=== PATIENT | female | born 1950 | race Caucasian/White ===

== ENCOUNTER 2023-03-29 09:24 | Inpatient (IN) | payer OTHER, SELFPAY ==
[2023-03-29] VITALS (8 sets, daily range): BP systolic 96–135; BP diastolic 42–72; PULSE 95–105; RESP 15–22; TEMP 35.9–36.4; O2SAT 93–98; BMI 21.3
--- NOTE | ~2023-03-29 | XR_ITS ---
EXAMINATION: XR CHEST 2 VIEW CLINICAL INFORMATION: Cough, shortness of breath COMPARISON: None TECHNIQUE: PA and lateral views of the chest obtained. FINDINGS: There are diffuse bilateral patchy opacities, greater in the left mid and lower lung zones and in the right mid and lower lung zone. No pleural effusions are evident. The cardiac silhouette is not enlarged. The left hilum is prominent, as is soft tissue in the aorticopulmonary window. Degenerative changes are noted in the left shoulder. XR/XR chest 2V IMPRESSION: 1. Bilateral airspace opacities, left greater than right, nonspecific. Bilateral pneumonia and asymmetric pulmonary edema are within the differential diagnosis. Follow-up chest x-ray is recommended to confirm clearing. 2. Prominent soft tissue in the aorticopulmonary window suspicious for adenopathy. Both this finding and the pulmonary parenchymal findings would be better assessed by thoracic CT (with contrast) as clinically warranted.
--- NOTE | ~2023-03-29 | CT_ITS ---
Examination: CT brain and CT cervical spine without IV contrast. Clinical indications: Fall, head strike. COMPARISON: None. TECHNIQUE: 5 mm thin axial and reformatted 2 mm thin sagittal and coronal images of brain were obtained without contrast. Subsequently axial 3 minutes thin and reformatted 2 minutes thin sagittal coronal images of cervical spine were obtained. DLP [id number]. This CT examination was performed using dose optimization technique as appropriate, variously including the following: Automated exposure control Adjustment of MA and/or KV according to patient size(this includes techniques or standardized protocols for targeted exams where dose is matched to indication/reason for exam; extremities or head. Use of iterative reconstruction techniques. FINDINGS: There is no acute intra-axial, extra-axial bleed, masses or midline shift. There is no acute infarction evolution. There is no edema. The cerrato to white matter differentiation is maintained normal. The lateral ventricles are symmetrical in size but moderately enlarged. Mild periventricular hypodensity seen in white matter of both frontal lobes. There is normal aeration of bilateral paranasal sinuses and mastoid sinuses. No scalp soft tissue abnormality seen. Cervical spine: There is mild straightening of cervical lordosis. The vertebral heights, alignment and disc heights are normal. No visible acute fracture, dislocation or subluxation seen. Mild degenerative changes C1-C2 disc level is noted. The craniovertebral junction is normal. No visible acute fracture, dislocation or subluxation seen. The prevertebral and paravertebral soft tissues are normal. CT/CT head/brain wo IV con IMPRESSION: No acute intracranial process seen. Mild straightening of cervical lordosis likely spasm. No visible acute fracture, dislocation or subluxation seen. Mild degenerative changes C1-C2 disc level.
--- NOTE | ~2023-03-29 | CT_ITS ---
Examination: CT brain and CT cervical spine without IV contrast. Clinical indications: Fall, head strike. COMPARISON: None. TECHNIQUE: 5 mm thin axial and reformatted 2 mm thin sagittal and coronal images of brain were obtained without contrast. Subsequently axial 3 minutes thin and reformatted 2 minutes thin sagittal coronal images of cervical spine were obtained. DLP [id number]. This CT examination was performed using dose optimization technique as appropriate, variously including the following: Automated exposure control Adjustment of MA and/or KV according to patient size(this includes techniques or standardized protocols for targeted exams where dose is matched to indication/reason for exam; extremities or head. Use of iterative reconstruction techniques. FINDINGS: There is no acute intra-axial, extra-axial bleed, masses or midline shift. There is no acute infarction evolution. There is no edema. The cerrato to white matter differentiation is maintained normal. The lateral ventricles are symmetrical in size but moderately enlarged. Mild periventricular hypodensity seen in white matter of both frontal lobes. There is normal aeration of bilateral paranasal sinuses and mastoid sinuses. No scalp soft tissue abnormality seen. Cervical spine: There is mild straightening of cervical lordosis. The vertebral heights, alignment and disc heights are normal. No visible acute fracture, dislocation or subluxation seen. Mild degenerative changes C1-C2 disc level is noted. The craniovertebral junction is normal. No visible acute fracture, dislocation or subluxation seen. The prevertebral and paravertebral soft tissues are normal. CT/CT cervical spine wo IV con IMPRESSION: No acute intracranial process seen. Mild straightening of cervical lordosis likely spasm. No visible acute fracture, dislocation or subluxation seen. Mild degenerative changes C1-C2 disc level.
--- NOTE | 2023-03-29 09:38 | ED_ITS ---
HPI - General Adult General Chief complaint: Dyspnea Stated complaint: SOB Time Seen by Provider: 03/29/23 09:38 Source: patient and EMS Mode of arrival: EMS Limitations: no limitations History of Present Illness HPI narrative: Patient is a 72 year old assigned female at with a history of RA presenting to the emergency department today with shortness of breath and failure to thrive after a fall. Patient states that she has felt much more short of breath lately. [facility] staff that visits the home states that the patient had a fall 2 weeks ago, and refused to go to the hospital. She states that since then, the patient's condition has been continually declining. Patient denies any dizziness, lightheadedness, abdominal pain, nausea, vomiting, fever, chills, blurry vision, double vision, loss of vision, chest pain, back pain, night sweats, pain with urination, increased urinary frequency, increased urinary urgency, blood in her urine or stool, syncope or a near syncopal episode, bowel incontinence, bladder incontinence, bowel retention, bladder retention, or any other complaints at this time. Onset (ago): day(s) Relieving factors: none Exacerbating factors: none Associated symptoms: shortness of breath Treatments prior to arrival: none Related Data Allergies Allergy/AdvReac Type Severity Reaction Status Date / Time No Known Allergies Allergy Verified 03/29/23 09:35 [No Known Allergies*] Review of Systems 2 Constitutional: Constitutional: Reports no additional constitutional complaints, Denies chills, Denies fever(s) and Denies night sweats Eyes: Eyes: Reports no additional eye complaints, Denies blurry vision, Denies change in vision, Denies diplopia, Denies eye discharge, Denies loss of vision and Denies eye pain ENT: Denies dizziness Cardiovascular: Cardiovascular: Reports no additional cardiovascular complaints, Denies chest pain, Denies lightheadedness, Denies Loss of Consciousness and Reports dyspnea Respiratory: Respiratory: Reports no additional respiratory complaints and Reports dyspnea Gastrointestinal: Gastrointestinal: Reports no additional gastrointestinal complaints, Denies abdominal pain, Denies melena, Denies hematochezia, Denies change in bowel habits and Denies change in stool character Genitourinary: Genitourinary: Denies hematuria, Denies urinary frequency, Denies dysuria, Denies urinary incontinence, Denies urinary hesitancy and Denies urinary urgency Musculoskeletal: Musculoskeletal: Reports no additional musculoskeletal complaints, Denies numbness and Denies tingling Neurologic: Denies dizziness, Denies loss of vision, Denies numbness and Denies tingling Psychiatric: Psychiatric: Reports no additional psychiatric complaints Endocrine: Endocrine: Reports no additional endocrine complaints Hematologic/Lymphatic: Hematologic/Lymphatic: Reports no additional hematologic/lymphatic complaints Allergic/Immunologic: Allergic/Immunologic: Reports no additional allergic/immunologic complaints PMFSH Past Medical History Attestation statement: The following information was validated with the patient. (all information validated with [facility] staff at bed side) Source: old records reviewed, nursing notes reviewed and other ([facility] staff provided additional information and confirmed the information provided by the patient.) Social History Social History Smoked in Last 30 Days: No Use of substances other than those prescribed or required for medical reasons: No Advance Directives: No Advance Directives Information Provided: Yes Physical Exam ED Vital Signs: Vital Signs - 24 hr 03/29/23 09:35 03/29/23 09:39 03/29/23 12:00 Temperature 96.6 F L Pulse Rate 105 H 104 H Respiratory Rate 22 H 18 Blood Pressure 131/59 L Pulse Oximetry 94 93 Oxygen Delivery Method Room Air Nasal Cannula Nasal Cannula Oxygen Flow Rate 3 4 BMI result Body Mass Index 21.3 Const General: cooperative, no acute distress, alert and awake Nutritional Appearance: well nourished Orientation/consciousness: patient oriented x3 Limitations: no limitations HENMT Head: Yes normal to inspection and Yes atraumatic Ears: hearing grossly normal bilaterally and external ears normal General nose exam: Normal external nose present, no nasal discharge noted and no epistaxis Face and sinus: Yes normal facial exam, No abrasion and No laceration Mouth: Normal oral and palatal mucosa present, no drooling and no muffled voice Eyes General: appearance normal, both eyes and all related structures Periorbital: periorbital findings normal Eyelids: Yes eyelids normal Conjunctivae: conjunctivae normal Pupils: Equal, round and reactive pupils present EOM: EOMs intact bilaterally Neck Neck: Yes normal visual inspection, Yes full ROM and Yes no lymphadenopathy Chest Chest palpation & inspection: normal inspection of the chest Resp Effort & Inspection: able to speak in complete sentences, labored and tachypneic Auscultation: crackles bilateral in the lower lung tejeda Cardio Rate: tachycardic Rhythm: regular rhythm GI Inspection: Yes normal to inspection Palpation (GI): Soft to palpation, not firm, nontender and no guarding Skin Other: Neuro General: patient oriented x3 and moves all extremities Cranial nerves: Yes Equal, round and reactive pupils present Cognition (Neuro): normal cognition Motor exam (neuro): 5/5 motor strength present throughout Sensory Exam: Normal double simultaneous stimulation for sensation Coordination: [id number] test normal Extrem General: Yes normal to inspection, Yes full ROM and Yes capillary refill normal Psych Appearance: grossly normal Mental Status: mental status grossly normal Affect: normal affect Attitude: cooperative Thought process: Normal thought process present Thought content: Normal thought content present Insight: Good insight present (Psych) Medications Administered Discontinued Medications Generic Name Dose Route Start Last Admin Trade Name Freq PRN Reason Stop Dose Admin Furosemide 40 mg 03/29/23 10:57 03/29/23 11:23 Furosemide 40 Mg/4 Ml Vial IVPUSH 03/29/23 10:58 40 mg ONCE ONE Administration Protocol Ceftriaxone Sodium 2 gm/ 50 mls @ 100 mls/hr 03/29/23 10:29 03/29/23 11:25 Sodium Chloride IV 03/29/23 10:58 Infused ONCE ONE Infusion Medical Decision Making Medical Decision Making [facility] Narrative: Patient is a 72 year old assigned female at with a history of RA presenting to the emergency department today with shortness of breath and failure to thrive. Patient's physical exam was as noted in the physical exam portion of this chart. Patient does not normally required oxygenation at home and is requiring 4lpm via nasal canula here. Patient's blood work showed an elevated BNP of 511, an elevated WBC count of 18.5, an elevated initial troponin of 365.2, and an elevated total CK of 241. Patient's urine show a possible urinary tract infection however, it is contaminated. Will await culture report. Patient's EKG was unremarkable. Patient's chest x-ray showed bilateral airspace opacities consistent with bilateral pneumonia and concern for pulmonary edema. Patient's COVID-19 test was positive. Patient's clinical presentation is most consistent with bilateral pneumonia secondary to COVID-19 infection and CHF exacerbation. Patient was given IV Ceftriaxone. Patient's clinical presentation is not consistent with sepsis (@1245). Patient was also give 40mg of IV lasix. I spoke to the hospitalist who agreed to admission. I explained my physical exam findings as well as all test results to the patient. I answered all questions asked by the patient. Patient verbalized agreement and understanding with this treatment plan and admission. Differential Diagnosis Differential Diagnoses: The differential diagnosis associated with the presentation includes CHF exacerbation Pneumonia COVID-19 Influenza Admission/Observation Consideration of admission/observation: Escalation of care including admission/observation considered Patient admitted. Consult Healthcare Provider Management of the patient was discussed with: Hospitalist (agreed to admission.) Lab Data [facility] Lab Attestation statement: I reviewed the patient's lab results. My interpretation of these results are in the MDM Rationale portion of this note. 03/29/23 10:09 03/29/23 10:46 Labs: Lab Results 03/29/23 03/29/23 03/29/23 Range/Units 10:09 10:24 10:46 WBC 18.5 H (4.8-10.8) X10*3/uL RBC 3.61 L (4.20-5.50) X10*6/uL Hgb 10.4 L (12.0-16.0) g/dl Hct 33.7 L (37.0-47.0) % MCV 93.4 (80.0-98.0) fL MCH 28.8 (27.0-33.0) pg MCHC 30.9 L (31.0-35.0) g/dl RDW 17.5 H (11.0-16.0) % Plt Count 421 H (160-400) X10*3/uL MPV 10.4 (9.4-12.3) fL Immature Gran % (Auto) 2.7 H (0.0-0.4) % Neut % (Auto) 86.1 H (45-73) % Lymph % (Auto) 6.1 L (20-40) % [place] % (Auto) 4.7 (2-11) % Eos % (Auto) 0.1 (0-4) % Baso % (Auto) 0.3 (0-2) % Lymph # (Auto) 1.1 L (1.2-4.9) X10*3/uL [place] # (Auto) 0.9 (0.1-1.2) X10*3/uL Eos # (Auto) 0.0 (0.0-0.4) X10*3/uL Baso # (Auto) 0.1 (0.0-0.2) X10*3/uL Abs Immat Gran (auto) 0.49 H (0.00-0.03) X10*3/uL Absolute Neuts (auto) 15.9 H (2.0-8.3) x10*3/uL Absolute Nucleated RBC 0.000 (0.0-0.012) X10*3/uL Nucleated RBC % (auto) 0.0 (0.0-0.2) /100WBC PT 15.4 H (11.1-13.3) SEC INR 1.3 H (0.9-1.1) APTT 25.5 L (26.0-36.4) SEC VBG pH 7.38 (7.32-7.43) VBG pCO2 33 mmHg VBG pO2 47 mmHg VBG HCO3 20 L (22-26) mmol/L VBG O2 Saturation TNP VBG Base Excess -3.6 mmol/L Sodium 139 (135-145) mmol/L Potassium 3.6 (3.3-5.1) mmol/L Chloride 105 (96-108) mmol/L Carbon Dioxide 16 L (22-29) mmol/L Anion Gap 22 H (12-20) BUN 25 H (9-16) mg/dL Creatinine 0.48 L (0.5-1.4) mg/dL Estim Creat Clear Calc 82.5 Estimated GFR > 60 Random Glucose 95 (60-115) mg/dL Lactic Acid 1.5 (0.5-2.0) mmol/L Calcium 8.9 (8.4-10.2) mg/dL Magnesium 2.4 (1.6-2.6) mg/dL Total Bilirubin 0.4 (0.0-1.0) mg/dL AST 40 H (5-31) U/L ALT 18 (0-31) U/L Alkaline Phosphatase 126 H (39-117) U/L Total Creatine Kinase 241 H (26-140) U/L Troponin I High Sens 365.2 H* (<3.5-17.0) ng/L B-Natriuretic Peptide 511 H (<100) pg/mL Total Protein 6.1 L (6.5-8.0) g/dL Albumin 3.0 L (3.5-5.0) g/dL Urine Color Urine Appearance Urine pH (5.0-9.0) Ur Specific [place] (1.005-1.025) Urine Protein (Neg-Trace) mg/dL Urine Glucose (UA) (Negative) mg/dL Urine Ketones (Negative) mg/dL Urine Blood (Negative) Urine Nitrite (Negative) Ur Leukocyte Esterase (Negative) Urine RBC (0-2) /HPF Urine WBC (0-5) /HPF Ur Squamous Epith Cells (0-2) /HPF Urine Bacteria (None Seen) Hyaline Casts (0-2) /LPF Influenza Type A (PCR) NEGATIVE (Negative) Influenza Type B (PCR) NEGATIVE (Negative) RSV RNA Qual (PCR) NEGATIVE (Negative) SARS-CoV-2 RNA (RT-PCR) POSITIVE A (Negative) 03/29/23 Range/Units 12:31 WBC (4.8-10.8) X10*3/uL RBC (4.20-5.50) X10*6/uL Hgb (12.0-16.0) g/dl Hct (37.0-47.0) % MCV (80.0-98.0) fL MCH (27.0-33.0) pg MCHC (31.0-35.0) g/dl RDW (11.0-16.0) % Plt Count (160-400) X10*3/uL MPV (9.4-12.3) fL Immature Gran % (Auto) (0.0-0.4) % Neut % (Auto) (45-73) % Lymph % (Auto) (20-40) % [place] % (Auto) (2-11) % Eos % (Auto) (0-4) % Baso % (Auto) (0-2) % Lymph # (Auto) (1.2-4.9) X10*3/uL [place] # (Auto) (0.1-1.2) X10*3/uL Eos # (Auto) (0.0-0.4) X10*3/uL Baso # (Auto) (0.0-0.2) X10*3/uL Abs Immat Gran (auto) (0.00-0.03) X10*3/uL Absolute Neuts (auto) (2.0-8.3) x10*3/uL Absolute Nucleated RBC (0.0-0.012) X10*3/uL Nucleated RBC % (auto) (0.0-0.2) /100WBC PT (11.1-13.3) SEC INR (0.9-1.1) APTT (26.0-36.4) SEC VBG pH (7.32-7.43) VBG pCO2 mmHg VBG pO2 mmHg VBG HCO3 (22-26) mmol/L VBG O2 Saturation VBG Base Excess mmol/L Sodium (135-145) mmol/L Potassium (3.3-5.1) mmol/L Chloride (96-108) mmol/L Carbon Dioxide (22-29) mmol/L Anion Gap (12-20) BUN (9-16) mg/dL Creatinine (0.5-1.4) mg/dL Estim Creat Clear Calc Estimated GFR Random Glucose (60-115) mg/dL Lactic Acid (0.5-2.0) mmol/L Calcium (8.4-10.2) mg/dL Magnesium (1.6-2.6) mg/dL Total Bilirubin (0.0-1.0) mg/dL AST (5-31) U/L ALT (0-31) U/L Alkaline Phosphatase (39-117) U/L Total Creatine Kinase (26-140) U/L Troponin I High Sens 383.2 H* (<3.5-17.0) ng/L B-Natriuretic Peptide (<100) pg/mL Total Protein (6.5-8.0) g/dL Albumin (3.5-5.0) g/dL Urine Color Yellow Urine Appearance Turbid Urine pH 6.0 (5.0-9.0) Ur Specific [place] 1.010 (1.005-1.025) Urine Protein Negative (Neg-Trace) mg/dL Urine Glucose (UA) Negative (Negative) mg/dL Urine Ketones 15 (Negative) mg/dL Urine Blood Negative (Negative) Urine Nitrite Positive H (Negative) Ur Leukocyte Esterase Large (3+) H (Negative) Urine RBC 0-2 (0-2) /HPF Urine WBC 11-20 H (0-5) /HPF Ur Squamous Epith Cells 6-10 (0-2) /HPF Urine Bacteria 4+ (None Seen) Hyaline Casts 0-2 (0-2) /LPF Influenza Type A (PCR) (Negative) Influenza Type B (PCR) (Negative) RSV RNA Qual (PCR) (Negative) SARS-CoV-2 RNA (RT-PCR) (Negative) Independent Interpretation I performed an independent interpretation of an: EKG, Plain X-Ray and CT Scan Interpretation: My interpretation is in agreement with the radiologist's impression of these imaging studies. - EXAMINATION: XR CHEST 2 VIEW CLINICAL INFORMATION: Cough, shortness of breath COMPARISON: None TECHNIQUE: PA and lateral views of the chest obtained. FINDINGS: There are diffuse bilateral patchy opacities, greater in the left mid and lower lung zones and in the right mid and lower lung zone. No pleural effusions are evident. The cardiac silhouette is not enlarged. The left hilum is prominent, as is soft tissue in the aorticopulmonary window. Degenerative changes are noted in the left shoulder. XR/XR chest 2V IMPRESSION: 1. Bilateral airspace opacities, left greater than right, nonspecific. Bilateral pneumonia and asymmetric pulmonary edema are within the differential diagnosis. Follow-up chest x-ray is recommended to confirm clearing. 2. Prominent soft tissue in the aorticopulmonary window suspicious for adenopathy. Both this finding and the pulmonary parenchymal findings would be better assessed by thoracic CT (with contrast) as clinically warranted. Dictated By: Alfred Mcmillan MD Signed By: Electronically signed by Alfred Mcmillan MD 03/29/23 1126 - Examination: CT brain and CT cervical spine without IV contrast. Clinical indications: Fall, head strike. COMPARISON: None. TECHNIQUE: 5 mm thin axial and reformatted 2 mm thin sagittal and coronal images of brain were obtained without contrast. Subsequently axial 3 minutes thin and reformatted 2 minutes thin sagittal coronal images of cervical spine were obtained. DLP [id number]. This CT examination was performed using dose optimization technique as appropriate, variously including the following: Automated exposure control Adjustment of MA and/or KV according to patient size(this includes techniques or standardized protocols for targeted exams where dose is matched to indication/reason for exam; extremities or head. Use of iterative reconstruction techniques. FINDINGS: There is no acute intra-axial, extra-axial bleed, masses or midline shift. There is no acute infarction evolution. There is no edema. The cerrato to white matter differentiation is maintained normal. The lateral ventricles are symmetrical in size but moderately enlarged. Mild periventricular hypodensity seen in white matter of both frontal lobes. There is normal aeration of bilateral paranasal sinuses and mastoid sinuses. No scalp soft tissue abnormality seen. Cervical spine: There is mild straightening of cervical lordosis. The vertebral heights, alignment and disc heights are normal. No visible acute fracture, dislocation or subluxation seen. Mild degenerative changes C1-C2 disc level is noted. The craniovertebral junction is normal. No visible acute fracture, dislocation or subluxation seen. The prevertebral and paravertebral soft tissues are normal. CT/CT cervical spine wo IV con IMPRESSION: No acute intracranial process seen. Mild straightening of cervical lordosis likely spasm. No visible acute fracture, dislocation or subluxation seen. Mild degenerative changes C1-C2 disc level. Dictated By: Jayy Smith MD Signed By: Electronically signed by Jayy Smith MD 03/29/23 4168 - Vent. Rate: 103 BPM Atrial Rate: 103 BPM P-R Int: 138 ms QRS Dur: 084 ms QT Int: 360 ms P-R-T Axes: 065 083 025 degrees QTc Int: 471 ms Sinus tachycardia Otherwise normal ECG No previous ECGs available DD/ [id number] Radiology Impression Discussion of test interpretation with radiology: I have reviewed the radiologist's reading. Independent Historian Clinical information obtained from an independent historian. History obtained from or confirmed by: EMS (EMS provided additional history and confirmed the history provided by the patient.) and Other ([facility] staff provided additional history and confirmed the history provided by the patient.) Critical Care Time Critical Care Time Critical Care Time: Yes Total Critical Care Time: 55 Attestation: I spent 55 minutes of Critical Care Time with this patient. This does not include time spent on separately reported billable procedures. Discharge Plan Discharge Clinical Impression: Congestive heart failure, Pneumonia, COVID-19 Patient Disposition: Admitted As Inpatient
--- NOTE | 2023-03-29 09:41 | ECG_ITS ---
Test Reason : SOB Blood Pressure : / mmHG Vent. Rate : 103 BPM Atrial Rate : 103 BPM P-R Int : 138 ms QRS Dur : 084 ms QT Int : 360 ms P-R-T Axes : 065 083 025 degrees QTc Int : 471 ms Sinus tachycardia Nonspecific T wave abnormality Inferior leads Abnormal ECG No previous ECGs available Referred By: Kaylyn Rider Electronically Signed By:ALLI BOATENG MD
--- NOTE | 2023-03-29 10:00 | PC.NURSE ---
a&ox4, O2 87% on RA - NC applied. tachycardic on film waxer, O2 93% on 3L via NC - otherwise vss. pt comes in today d/t SOB/FTT after fall 2 weeks ago. per ems, pcp/nurse was w/ pt when ems arrived. states that she had fall 2 weeks ago at home- +headstrike, -LOC, -thinners. pt has difficulty speaking in full/complete sentences w/o feel short of breath. pt c/o 10/10 sternal chest pain only on deep inspiration. respirations labored at this time. crackles noted upon auscultation bilaterally. pt denies any other sx at this time. 20gIV placed in the right AC w/o difficulty - labs drawn and sent to lab. EKG performed. pt changed to hospital attire/cleaned/positioned to comfort. purewick applied. call bray placed within reach.
[2023-03-29 10:22] LABS: MANUAL DIFF FLAG NO
[2023-03-29 10:27] LABS: Basophils Absolute Auto 0.1 X10*3/uL (0.0-0.2); Basophils Percent Auto 0.3 % (0-2); Eosinophils Percent Auto 0.1 % (0-4); Hematocrit 33.7 % (37.0-47.0); Hemoglobin 10.4 g/dl (12.0-16.0); Imm Gran Abs Auto 0.49 X10*3/uL (0.00-0.03); Imm Gran Pct Auto 2.7 % (0.0-0.4); Lymphocytes Absolute Auto 1.1 X10*3/uL (1.2-4.9); Lymphocytes Percent Auto 6.1 % (20-40); Mean Corpuscular HGB Conc 30.9 g/dl (31.0-35.0); Mean Corpuscular Hemoglobin 28.8 pg (27.0-33.0); Mean Corpuscular Volume 93.4 fL (80.0-98.0); Mean Platelet Volume 10.4 fL (9.4-12.3); Monocytes Absolute Auto 0.9 X10*3/uL (0.1-1.2); Monocytes Percent Auto 4.7 % (2-11); Neutrophils Absolute Auto 15.9 x10*3/uL (2.0-8.3); Neutrophils Percent Auto 86.1 % (45-73); Platelet Count 421 X10*3/uL (160-400); Red Blood Count 3.61 X10*6/uL (4.20-5.50); Red Cell Distribution Width 17.5 % (11.0-16.0); White Blood Count 18.5 X10*3/uL (4.8-10.8)
[2023-03-29 10:29] LABS: Venous Blood Gas Refer to POC result
[2023-03-29 10:29] LABS: VBG Base Excess -3.6 mmol/L; VBG HCO3 20 mmol/L (22-26); VBG pCO2 33 mmHg; VBG pH 7.38 (7.32-7.43); VBG pO2 47 mmHg
--- NOTE | 2023-03-29 10:31 | PC.NURSE ---
pt currently being taken to xray.
[2023-03-29 10:36] LABS: INTERNATIONAL NORM RATIO 1.3 (0.9-1.1); Lactic Acid 1.5 mmol/L (0.5-2.0); Prothrombin Time 15.4 SEC (11.1-13.3)
[2023-03-29 10:39] LABS: Partial Thromboplastin Time 25.5 SEC (26.0-36.4)
[2023-03-29 10:48] LABS: B Type Natriuretic Peptide 511 pg/mL (<100)
[2023-03-29] MEDS: cefTRIAXone sodium 2 GM in 0.9 % Sodium Chloride 50 ML IV (10:48)
--- NOTE | 2023-03-29 10:49 | PC.NURSE ---
medication administered per provider order. tech redrawing labs at this time. [facility] worker bedside requesting to speak with provider.
[2023-03-29 10:57] LABS: Troponin-I High Sensitivity 365.2 ng/L (<3.5-17.0)
[2023-03-29 11:10] LABS: Influenza A PCR NEGATIVE (Negative); Influenza B PCR NEGATIVE (Negative); Resp Syncy Virus RNA Qual PCR NEGATIVE (Negative); SARS COV2 PCR INHOUSE POSITIVE (Negative)
[2023-03-29] MEDS: Furosemide 40 MG/4 ML VIAL IVPUSH (11:23)
--- NOTE | 2023-03-29 11:25 | PC.NURSE ---
pt medicated per provider order. pt currently being taken to CT.
[2023-03-29 11:26] LABS: Alanine Aminotransferase 18 U/L (0-31); Alkaline Phosphatase 126 U/L (39-117); Anion Gap 22 (12-20); Aspartate Amino Transferase 40 U/L (5-31); Bilirubin Total 0.4 mg/dL (0.0-1.0); Blood Urea Nitrogen 25 mg/dL (9-16); Calcium 8.9 mg/dL (8.4-10.2); Carbon Dioxide 16 mmol/L (22-29); Chloride 105 mmol/L (96-108); Creatinine Clr Calc Pharmacy 82.5; Estimated Glomerular Filt Rate > 60; Glucose Random 95 mg/dL (60-115); Magnesium 2.4 mg/dL (1.6-2.6); Potassium 3.6 mmol/L (3.3-5.1); Sodium 139 mmol/L (135-145); Total Protein 6.1 g/dL (6.5-8.0)
--- NOTE | 2023-03-29 11:26 | PC.NURSE ---
Brigida [phone] ([facility] worker)
--- NOTE | 2023-03-29 11:56 | PC.NURSE ---
pt returned from CT. pt spoke w/ provider - pt aware of plan of care at this time. call bray placed within reach.
--- NOTE | 2023-03-29 12:35 | PC.NURSE ---
urine obtained/repeat troponin drawn and and sent to lab. pt remains tachycardic on the monitor technician. O2 remains stable at this time as pt is on 4L via NC. no SOB/WOB noted at this time. pt verbalizes that pain discomfort that only occurred during inspiration has now subsided at this time. pt states that she is feeling much better since coming to ED. contact precautions in place d/t positive covid swab. respirations even and unlabored at this time. call bray placed within reach.
[2023-03-29 12:37] LABS: Appearance Urine Turbid; Color Urine Yellow; Glucose Urine UA Negative (Negative); Leukocyte Esterase Urine Large (3+) (Negative); Nitrite Urine Positive (Negative); UMIC TRIGGER UACC YES; Urine Blood Negative (Negative); Urine Ketones 15 mg/dL (Negative); Urine Protein Negative (Neg-Trace)
[2023-03-29 12:48] LABS: Bacteria Urine 4+ (None Seen); Hyaline Casts Urine 0-2 /LPF (0-2); RBC Urine 0-2 /HPF (0-2); UACC Culture Trigger YES
[2023-03-29 12:58] LABS: Troponin-I High Sensitivity 383.2 ng/L (<3.5-17.0)
--- NOTE | 2023-03-29 13:53 | PHA.MEDREC ---
Pharmacy Consult ? Medication Reconciliation Pharmacy has completed the medication reconciliation.Used list from claim history
--- NOTE | 2023-03-29 14:47 | PM.IMHP ---
History of Present Illness Date of Service: 03/29/23 Attending physician on admission: Monie Bello Chief Complaint: SOB Pt is a 72-year-old female with a PMH significant for rheumatoid arthritis?who presents to the ED from home for evaluation of increasing SOB and dyspnea for the past 1-2 weeks. Patient notes that she had a mechanical fall at home 2 weeks ago, falling on her left arm and leg. Currently patient states she has no pain in her arm or leg. Denies lightheadedness, dizziness. No LOC or head strike. Pt has home [facility] visits and staff note that patient refused to go to the hospital for evaluation after her fall, and that patient's condition has continually declined since her fall. Patient herself complains of shortness of breath that began 1-2 weeks ago, shortly after her fall. Reports shortness of breath increased acutely yesterday and again this morning, which prompted her visit to the emergency department. Denies cough. Has noticed since yesterday that she has had increased lower leg edema, especially in her feet. Also reports polyuria for the past week, but denies dysuria. No chest pain/pressure, palpitations. No fever, chills, nausea, vomiting. No diarrhea, belly pain. Patient states she lives with her son and is nonambulatory, mostly confined to her wheelchair. In the ED patient temperature of 96.6 degrees, tachycardic up to 105, tachypneic up to 22, with initial soft BP of 131/59, satting at 94% O2 on 3 L NC. Labs were significant for leukocytosis of 18.5, H&H 10.4/33.7, BUN 25, creatinine 0.48, AST 40, alk-phos 126, CPK 241, initial troponin 365.2 with repeat 383.2, BNP 511. CXR showed bilateral airspace opacities with left greater than right, nonspecific, suggestive of bilateral pneumonia or asymmetric pulmonary edema. CT?of head negative for acute intracranial process. CT of cervical spine with no visible acute fracture, dislocation, or subluxation but with mild degenerative changes at the C1-C2 disc level. EKG demonstrated sinus tachycardia of 103 with nonspecific T-wave abnormality in inferior leads, and no evidence of ST elevations or depressions. Pt was treated with ceftriaxone and furosemide. Pt will be admitted to the hospital for treatment of acute hypoxic respiratory failure in the setting of COVID infection and new onset CHF. Review of Systems Review of Systems: SOB, dyspnea Lower leg edema Polyuria Denies chest pain/pressure, palpitations Denies fever, chills, nausea, vomiting No diarrhea, abdominal pain Denies headache, lightheadedness, dizziness PMFSH Social History Smoked in Last 30 Days: No Use of substances other than those prescribed or required for medical reasons: No Advance Directives: No Advance Directives Information Provided: Yes Meds Allergies Allergy/AdvReac Type Severity Reaction Status Date / Time No Known Allergies Allergy Verified 03/29/23 09:35 [No Known Allergies*] Home Medications Medication Instructions Recorded Confirmed Last Taken Type buspirone 15 mg tablet 15 mg PO BID 03/29/23 03/29/23 Unknown History calcium carbonate 600 mg calcium 600 mg PO DAILY 03/29/23 03/29/23 Unknown History (1,500 mg) tablet folic acid 1 mg tablet 1 mg PO DAILY 03/29/23 03/29/23 Unknown History hydroxychloroquine 200 mg tablet 200 mg PO DAILY 03/29/23 03/29/23 Unknown History leflunomide 20 mg tablet 20 mg PO DAILY 03/29/23 03/29/23 Unknown History loratadine 10 mg tablet 10 mg PO DAILY 03/29/23 03/29/23 Unknown History methotrexate sodium 25 mg/mL 20 mg subcut WE 03/29/23 03/29/23 Unknown History injection solution omeprazole 20 mg capsule,delayed 20 mg PO DAILY 03/29/23 03/29/23 Unknown History release tramadol 50 mg tablet 100 mg PO BID PRN pain 03/29/23 03/29/23 Unknown History Physical Exam Vital Signs and Narrative: Vital Signs: Last Vital Signs Temp 97.5 F 03/29/23 14:29 Pulse 95 03/29/23 14:29 Resp 16 03/29/23 14:29 BP 125/61 03/29/23 14:29 Pulse Ox 98 03/29/23 14:29 O2 Del Method Nasal Cannula 03/29/23 14:29 O2 Flow Rate 4 03/29/23 14:29 BMI result Body Mass Index 21.3 Constitutional: Alert, cachectic, frail looking, in no acute distress. Mental Status: Oriented to person, place and time. Eyes: Pupils are equal, round, and reactive to light. Ear, Nose, and Throat: Oropharynx clear, mucous membranes moist. Ears and nose without deformities. Trachea midline. Respiratory: Lower right lobe crackles. Cardiovascular: S1, S2 regular. No murmurs, rubs, or gallops. Gastrointestinal: Abdomen soft, non-tender, non-distended. Normal bowel sounds. Neurologic: Cranial nerves II-XII are grossly intact bilaterally. No focal neurological deficits. Moves all extremities spontaneously. Skin: Multiple stage II decubitus ulcers as pictured below. Musculoskeletal: No cyanosis or clubbing. Extremities: 1+ bilateral lower leg edema. Upper extremities with ulnar deviation metacarpophalangeal joints bilaterally. Psychiatric: Normal mood and affect. Results Labs 03/29/23 10:09 03/29/23 10:46 Labs: Laboratory Results - last 24 hr 03/29/23 03/29/23 03/29/23 10:09 10:24 10:46 MCV 93.4 MCH 28.8 MCHC 30.9 L RDW 17.5 H Plt Count 421 H MPV 10.4 Immature Gran % (Auto) 2.7 H Neut % (Auto) 86.1 H Lymph % (Auto) 6.1 L [place] % (Auto) 4.7 Eos % (Auto) 0.1 Baso % (Auto) 0.3 Lymph # (Auto) 1.1 L [place] # (Auto) 0.9 Eos # (Auto) 0.0 Baso # (Auto) 0.1 Abs Immat Gran (auto) 0.49 H Absolute Neuts (auto) 15.9 H Absolute Nucleated RBC 0.000 Nucleated RBC % (auto) 0.0 PT 15.4 H INR 1.3 H APTT 25.5 L VBG pH 7.38 VBG pCO2 33 VBG pO2 47 VBG HCO3 20 L VBG O2 Saturation TNP VBG Base Excess -3.6 Anion Gap 22 H Estim Creat Clear Calc 82.5 Estimated GFR > 60 Random Glucose 95 Lactic Acid 1.5 Calcium 8.9 Magnesium 2.4 Total Bilirubin 0.4 AST 40 H ALT 18 Alkaline Phosphatase 126 H Total Creatine Kinase 241 H B-Natriuretic Peptide 511 H Total Protein 6.1 L Albumin 3.0 L Urine Color Urine Appearance Urine pH Ur Specific [place] Urine Protein Urine Glucose (UA) Urine Ketones Urine Blood Urine Nitrite Ur Leukocyte Esterase Urine RBC Urine WBC Ur Squamous Epith Cells Urine Bacteria Hyaline Casts Influenza Type A (PCR) NEGATIVE Influenza Type B (PCR) NEGATIVE RSV RNA Qual (PCR) NEGATIVE SARS-CoV-2 RNA (RT-PCR) POSITIVE A 03/29/23 12:31 MCV MCH MCHC RDW Plt Count MPV Immature Gran % (Auto) Neut % (Auto) Lymph % (Auto) [place] % (Auto) Eos % (Auto) Baso % (Auto) Lymph # (Auto) [place] # (Auto) Eos # (Auto) Baso # (Auto) Abs Immat Gran (auto) Absolute Neuts (auto) Absolute Nucleated RBC Nucleated RBC % (auto) PT INR APTT VBG pH VBG pCO2 VBG pO2 VBG HCO3 VBG O2 Saturation VBG Base Excess Anion Gap Estim Creat Clear Calc Estimated GFR Random Glucose Lactic Acid Calcium Magnesium Total Bilirubin AST ALT Alkaline Phosphatase Total Creatine Kinase B-Natriuretic Peptide Total Protein Albumin Urine Color Yellow Urine Appearance Turbid Urine pH 6.0 Ur Specific [place] 1.010 Urine Protein Negative Urine Glucose (UA) Negative Urine Ketones 15 Urine Blood Negative Urine Nitrite Positive H Ur Leukocyte Esterase Large (3+) H Urine RBC 0-2 Urine WBC 11-20 H Ur Squamous Epith Cells 6-10 Urine Bacteria 4+ Hyaline Casts 0-2 Influenza Type A (PCR) Influenza Type B (PCR) RSV RNA Qual (PCR) SARS-CoV-2 RNA (RT-PCR) Imaging Radiologist's Impressions: Impressions Chest X-Ray 03/29/23 10:37 IMPRESSION: 1. Bilateral airspace opacities, left greater than right, nonspecific. Bilateral pneumonia and asymmetric pulmonary edema are within the differential diagnosis. Follow-up chest x-ray is recommended to confirm clearing. 2. Prominent soft tissue in the aorticopulmonary window suspicious for adenopathy. Both this finding and the pulmonary parenchymal findings would be better assessed by thoracic CT (with contrast) as clinically warranted. Cervical Spine CT 03/29/23 11:56 IMPRESSION: No acute intracranial process seen. Mild straightening of cervical lordosis likely spasm. No visible acute fracture, dislocation or subluxation seen. Mild degenerative changes C1-C2 disc level. Head CT 03/29/23 11:56 IMPRESSION: No acute intracranial process seen. Mild straightening of cervical lordosis likely spasm. No visible acute fracture, dislocation or subluxation seen. Mild degenerative changes C1-C2 disc level. Assessment and Plan (1) COVID-19: Status: Acute (2) New onset of congestive heart failure: Status: Acute (3) UTI (urinary tract infection): Status: Acute Plan Pt is a 72-year-old female with a PMH significant for rheumatoid arthritis?who presents to the ED from home for evaluation of increasing SOB and dyspnea for the past 1-2 weeks, worse last night and this morning. Pt will be admitted to the hospital for treatment of acute hypoxic respiratory failure in the setting of COVID infection and new onset CHF. Acute hypoxic respiratory failure in the setting COVID infection Pt sesatting as low as 87% on RA, not on home O2 Dexamethasone 6 mg, remdesivir not indicated since symptom onset up to 2 weeks ago DuoNebs, albuterol inhaler p.r.n. Titrate supplemental O2 >92, wean as tolerated Monitor respiratory status New onset CHF Likely secondary to COVID infection Patient with increased SOB, CXR with evidence of pulmonary edema, elevated BNP, bilateral lower leg pitting edema Furosemide 20 mg IV b.i.d. Follow mag rain, I/O Echocardiogram Cardiology consult Monitor on telemetry UTI UA positive for UTI, patient with polyuria Patient meets sepsis criteria: UTI, WBC, tachycardia, tachypnea; lactic acid WNL at 1.5 Patient not given IVF in ED d/t CHF, started on broad-spectrum antibiotics in the ED Ceftriaxone, started on 03/29/2023 Elevated troponins Initial troponins 365.2 with repeat with no delta change at 383.2 Patient asymptomatic: Denies chest pain/pressure, palpitations, EKG without acute ischemia Likely type 2 in the setting of demand ischemia Monitor on telemetry Stage II decubitus ulcers Patient positioning q.2h Wound care nurse consult Rheumatoid arthritis Continue hydroxychloroquine, leflunomide GERD Continue omeprazole Full Code Attending:?Dr. Bello DVT Prophylaxis: Lovenox Pt will require a hospitalization of at least two nights for treatment of?acute hypoxic respiratory failure in the setting of COVID infection and new onset CHF. Time Spent With Patient Time: Total time managing care of this patient today ____ minutes. Quality Stroke Does the patient have a stroke diagnosis?: No VTE Prior VTE?: No VTE Risk Level:: Medical - moderate - high VTE Device Contraindication: Treatment Not Indicated VTE Drug Contraindication: N/A - Med Ordered
[2023-03-29] MEDS: dexAMETHasone sod phosphate 4 MG/ML VIAL 6 MG IVPUSH (16:10)
[2023-03-29] MEDS: 0.9 % Sodium Chloride Flush 3 ML SYRINGE IVFLUSH ×2 (16:10→20:08)
[2023-03-29] MEDS: Enoxaparin Sodium 40 MG/0.4 ML SYRINGE SUBCUT (16:10)
--- NOTE | 2023-03-29 16:13 | PC.NURSE ---
medication administered per provider order. pt resting in no apparent distress at this time. sinus tachy on shelter monitor. resting at 93% on 4L via NC. no SOB/WOB noted at this time. crackles still noted throughout lower lungs bilaterally. pt c/o no pain at this time. call bray placed within reach.
--- NOTE | 2023-03-29 17:13 | PC.NURSE ---
report given to admitting RN - transport notified.
[2023-03-29] MEDS: Albuterol/Iprat 2.5/0.5MG 3 ML AMPUL.NEB INHALE (19:47)
[2023-03-29] MEDS: busPIRone HCl 5 MG TABLET 15 MG PO (20:07)
[2023-03-30] VITALS (10 sets, daily range): BP systolic 98–153; BP diastolic 48–72; PULSE 72–118; RESP 16–20; TEMP 36.3–37; O2SAT 89–98; BMI 21.3
[2023-03-30] MEDS: Omeprazole 20 MG CAPSULE.DR PO (05:17)
--- NOTE | 2023-03-30 07:00 | CA_ITS ---
Transthoracic Echocardiogram Patient (Last, First, Middle): Anita Phelps M Gender: Female Date of : 1950 Age: 72 Procedure Date: 03/30/2023 Procedure Type: Transthoracic [place] [facility] [place]: 157.48 cm Weight: 52.62 kg BSA: 1.52 m2 Heart Rate: bpm BP: 98 / 48 mmHg Final Inspector Movement Assembly: Referring MD: Carla AUSTIN Symptoms: New onset CHF Study Quality: Fair ECG Rhythm: Sinus Conclusions: - The left ventricular systolic function is normal. The calculated ejection fraction is 64% by biplane method. - Possible basal inferior/inferolateral hypokinesis. - No obvious valvular pathology seen on this study. Findings Left Ventricle Normal left ventricular cavity size. There is normal left ventricular wall thickness. The left ventricular systolic function is normal. The calculated ejection fraction is 64% by biplane method. Evidence suggests grade I (mild) diastolic dysfunction. Possible basal inferior/inferolateral hypokinesis. Right Ventricle Mildly increased right ventricular cavity size. There is mildly decreased right ventricular systolic function. Atria Both atria are normal in size. Aortic Valve There is a normal trileaflet aortic valve. There is no aortic valve stenosis. There is no aortic valve regurgitation. Mitral Valve The mitral valve appears normal. There is no mitral valve regurgitation. There is no mitral valve stenosis. Pulmonic Valve The pulmonic valve is likely normal. Tricuspid Valve Normal tricuspid valve structure. There is mild tricuspid valve regurgitation. There is no evidence of pulmonary hypertension. Great Vessels The asc aorta is normal in size. Venous The inferior vena cava is normal in size and collapses greater than 50% with inspiration. Pericardium/Pleural There is no evidence of pericardial effusion. Prior Study Comparison No prior study available for comparison. Recommendations, Care & Conclusions No obvious valvular pathology seen on this study. Measurements 2D Linear Measurements IVSd: 0.76 0.6-0.9/0.6-1.0 cm LVIDd: 3.90 3.9-5.3/4.2-5.9 cm LVIDd Index: 2.57 2.4-3.2/2.2-3.1 cm/m2 LVIDs: 2.24 2.0-3.6 cm LVPWd: 0.70 0.7-1.1 cm Ao Root: 3.20 2.1-3.5 cm LA Diam: 2.40 2.7-3.8/3.0-4.0 cm LAIDs Index: 1.58 1.5-2.3 cm/m2 LV Mass: 98.73 67-162/88-224 g LV Mass Index: 64.95 43-95/49-115 g/m2 LVOT Diam: 2.00 3.0+(-)1.3 cm 2D Systolic Function EF 4C: 70.30 >55% EF 2C: 57.50 >55% EF BiP: 64.10 >55% Mitral Valve MV Pk E: 0.61 MV PK A: 0.97 MV Decel Time: 134.00 E/A: 0.60 E'Lateral: 4.46 E'Medial: 5.87 E/E' Med: 10.40 E/E' Lat: 13.70 PHT: 39.00 MVA PHT: 5.64 Decel [place]: 4.58 Aortic Valve AoV Pk Ananth: 1.42 AoV Mn Ananth: 0.89 AoV VTI: 0.28 AoV Pk Grad: 8.00 Aov Mn Grad: 4.00 TONY Cont.VTI: 2.31 LVOT LVOT Pk Ananth: 0.86 LVOT Mn Ananth: 0.54 LVOT VTI: 0.20 LVOT Pk Grad: 3.00 LVOT Mn Grad: 1.00 LVOT Diam: 2.00 LVOT Area: 3.14 Diastolic Function MV Pk E: 0.61 MV Pk A: 0.97 E/A: 0.60 E'Medial: 5.87 E/E' Med: 10.40 E' Laterial: 4.46 E/E' Lat: 13.70 Tricuspid Valve TR Pk Ananth: 2.63 TR Pk Grad: 28.00 RA Press: 3.00 RVSP: 31.00 Great Vessels Aorta Ao Root-2D: 3.20 2.0-3.7 cm Ao Asc: 3.40 2.1-3.4 cm Pulmonary Valve PV Pk Ananth: 0.80 Peak PV Grad: 3.00 Updated in Other Vendor System with Status of Final Jadiel Shukla MD electronically signed on 03/30/2023 12:25:21 PM with status of Final
[2023-03-30 07:29] LABS: Hematocrit 31.2 % (37.0-47.0); Hemoglobin 9.6 g/dl (12.0-16.0); Mean Corpuscular HGB Conc 30.8 g/dl (31.0-35.0); Mean Corpuscular Hemoglobin 28.7 pg (27.0-33.0); Mean Corpuscular Volume 93.4 fL (80.0-98.0); Mean Platelet Volume 11.3 fL (9.4-12.3); Platelet Count 355 X10*3/uL (160-400); Red Blood Count 3.34 X10*6/uL (4.20-5.50); Red Cell Distribution Width 17.3 % (11.0-16.0); White Blood Count 11.2 X10*3/uL (4.8-10.8)
[2023-03-30 07:38] LABS: Anion Gap 18 (12-20); Blood Urea Nitrogen 22 mg/dL (9-16); Calcium 8.4 mg/dL (8.4-10.2); Carbon Dioxide 22 mmol/L (22-29); Chloride 104 mmol/L (96-108); Creatinine Clr Calc Pharmacy 86.1; Estimated Glomerular Filt Rate > 60; Glucose Random 94 mg/dL (60-115); Magnesium 2.3 mg/dL (1.6-2.6); Potassium 3.1 mmol/L (3.3-5.1); Sodium 141 mmol/L (135-145)
[2023-03-30] MEDS: Albuterol/Iprat 2.5/0.5MG 3 ML AMPUL.NEB INHALE ×3 (08:36→15:45)
[2023-03-30] MEDS: Furosemide 20 MG TABLET PO ×2 (09:00→17:32)
[2023-03-30] MEDS: Hydroxychloroquine Sulfate 200 MG TABLET PO (09:00)
[2023-03-30] MEDS: Potassium Chloride Packet 20 MEQ PACKET 40 MEQ PO (09:00)
[2023-03-30] MEDS: Folic Acid 1 MG TABLET PO (09:01)
[2023-03-30] MEDS: Leflunomide 10 MG TABLET 20 MG PO (09:01)
[2023-03-30] MEDS: Loratadine 10 MG TABLET PO (09:01)
[2023-03-30] MEDS: busPIRone HCl 5 MG TABLET 15 MG PO ×2 (09:01→20:53)
[2023-03-30] MEDS: 0.9 % Sodium Chloride Flush 3 ML SYRINGE IVFLUSH ×2 (09:02→20:54)
[2023-03-30] MEDS: Albumin Human 25 % 100 ML IV ×3 (09:02→20:53)
[2023-03-30] MEDS: vancomycin HCL 1,250 MG in 0.9 % Sodium Chloride 250 ML 166.67 MG IV (09:04)
--- NOTE | 2023-03-30 09:40 | P.CONCA_ITS ---
History of Present Illness History of Present Illness Date of Service: 03/30/23 Chief complaint: COVID +, new onset CHF Narrative: This is a cardiology consultation regarding elevated troponins. Patient is here for shortness of breath for the last couple of weeks. In this context, she has been diagnosed to have COVID infection. Troponins were also checked and found to be elevated. Patient states she does not have any cardiac issues in the past. No history of any coronary artery disease or myocardial infarction or cardiomyopathy or in fact any other cardiac concerns. At the current time, she is denying any angina or any cardiac sounding symptoms. Per H&P, she is living with her son and is nonambulatory. Mostly in a wheelchair apparently. Review of Systems 2 Review of Systems: Yes all other systems are reviewed and are negative Constitutional: Constitutional: Reports as per HPI and Reports no additional constitutional complaints Eyes: Eyes: Reports as per HPI and Denies no additional eye complaints ENT: Denies system reviewed and no additional complaints, except as documented and Reports as per HPI Cardiovascular: Cardiovascular: Reports as per HPI, Reports no additional cardiovascular complaints, Denies acrocyanosis, Denies cool extremities, Denies chest pain, Denies leg edema, Denies lightheadedness, Denies palpitations and Reports dyspnea Respiratory: Respiratory: Reports as per HPI, Denies no additional respiratory complaints and Reports dyspnea Gastrointestinal: Gastrointestinal: Reports as per HPI and Denies no additional gastrointestinal complaints Genitourinary: Genitourinary: Reports as per HPI Musculoskeletal: Musculoskeletal: Reports no additional musculoskeletal complaints and Reports as per HPI Integumentary/Breasts: Skin/Breast: Reports system reviewed and no additional complaints, except as docu Neurologic: Reports system reviewed and no additional complaints, except as documented and Reports as per HPI Psychiatric: Psychiatric: Reports no additional psychiatric complaints and Reports as per HPI Endocrine: Endocrine: Reports no additional endocrine complaints, Reports as per HPI and Denies palpitations Hematologic/Lymphatic: Hematologic/Lymphatic: Reports no additional hematologic/lymphatic complaints and Reports as per HPI Allergic/Immunologic: Allergic/Immunologic: Reports no additional allergic/immunologic complaints and Reports as per HPI [facility] Family History Pertinent family history: No significant family history pertinent to this admission. Social History Social History Household Members: Family Housing: House Do you presently have visiting nurse or other home services: Yes Patient Tobacco Use Status: Never used Tobacco Smoked in Last 30 Days: No Use of substances other than those prescribed or required for medical reasons: No Advance Directives: No Advance Directives Information Provided: Yes Do you have thoughts of harming others: None Do you have a plan to hurt others: No Plan Recently lost weight without trying: Unsure Nutrition Risks: No Nutritional Risk Patient : No : No Poor oral hygiene: No Meds Allergies Allergy/AdvReac Type Severity Reaction Status Date / Time No Known Allergies Allergy Verified 03/29/23 09:35 [No Known Allergies*] Active Medications: Current Medications Acetaminophen (Acetaminophen 325 Mg Tablet) 650 mg PO Q6H PRN PRN Reason: Pain, Mild (Pain Scale 1-3) Albuterol Sulfate (Albuterol Sulfate 90 Mcg 8 Gm Inhaler) 2 puff INHALE RQ4H PRN PRN Reason: Shortness of Breath/Wheezing Albuterol/Ipratropium (Albuterol/Iprat 2.5/0.5mg 3 Ml Ampul.Neb) 3 ml INHALE RQ4H WHILE AWAKE [facility] Last Admin: 03/30/23 08:36 Dose: 3 ml Benzonatate (Benzonatate 100 Mg Capsule) 100 mg PO TID PRN PRN Reason: Cough Buspirone HCl (Buspirone Hcl 5 Mg Tablet) 15 mg PO BID [facility] Last Admin: 03/30/23 09:01 Dose: 15 mg Calcium Carbonate (Calcium Carbonate 500 Mg Tablet) 500 mg PO DAILY [facility] Last Admin: 03/30/23 09:01 Dose: 500 mg Dexamethasone Sodium Phosphate (Dexamethasone Sod Phosphate 4 Mg/Ml Vial) 6 mg IVPUSH DAILY [facility] Last Admin: 03/29/23 16:10 Dose: 6 mg Docusate Sodium (Docusate Sodium 100 Mg Capsule) 100 mg PO DAILY PRN PRN Reason: Constipation Enoxaparin Sodium (Enoxaparin Sodium 40 Mg/0.4 Ml Syringe) 40 mg SUBCUT Q24H [facility] Last Admin: 03/29/23 16:10 Dose: 40 mg Folic Acid (Folic Acid 1 Mg Tablet) 1 mg PO DAILY [facility] Last Admin: 03/30/23 09:01 Dose: 1 mg Furosemide (Furosemide 20 Mg Tablet) 20 mg PO BID@0900,1800 [facility]; Protocol Last Admin: 03/30/23 09:00 Dose: 20 mg Hydroxychloroquine Sulfate (Hydroxychloroquine Sulfate 200 Mg Tablet) 200 mg PO DAILY [facility] Last Admin: 03/30/23 09:00 Dose: 200 mg Ceftriaxone Sodium 1 gm/ (Sodium Chloride) 50 mls @ 100 mls/hr IV Q24H [facility] Albumin Human (Kedbumin 25 %) 100 mls @ 100 mls/hr IV Q6H [facility] Stop: 03/31/23 02:44 Last Admin: 03/30/23 09:02 Dose: 100 mls/hr Vancomycin HCl 1,250 mg/ (Sodium Chloride) 250 mls @ 166.667 mls/hr IV ONCE ONE Stop: 03/30/23 09:59 Last Admin: 03/30/23 09:04 Dose: 166.67 mls/hr Leflunomide (Leflunomide 10 Mg Tablet) 20 mg PO DAILY [facility] Last Admin: 03/30/23 09:01 Dose: 20 mg Loratadine (Loratadine 10 Mg Tablet) 10 mg PO DAILY [facility] Last Admin: 03/30/23 09:01 Dose: 10 mg Melatonin (Melatonin 3 Mg Tablet) 6 mg PO BEDTIME PRN PRN Reason: Insomnia Omeprazole (Omeprazole 20 Mg Capsule.Dr) 20 mg PO DAILY@0630 [facility] Last Admin: 03/30/23 05:17 Dose: 20 mg Ondansetron HCl (Ondansetron Hcl 4 Mg/2 Ml Vial) 4 mg IVPUSH Q8H PRN PRN Reason: Nausea and Vomiting Pharmacy Consult (Consult Rx Vancomycin Dosing) 1 each MISCELLANE DAILY PRN PRN Reason: Consult order Sodium Chloride (0.9 % Sodium Chloride Flush 3 Ml Syringe) 3 ml IVFLUSH QSHIFT [facility] Last Admin: 03/30/23 09:02 Dose: 3 ml Tramadol HCl (Tramadol Hcl 50 Mg Tablet) 100 mg PO BID PRN PRN Reason: Pain, Moderate(Pain Scale 4-6) Home Medications Medication Instructions Recorded Confirmed Last Taken Type buspirone 15 mg tablet 15 mg PO BID 03/29/23 03/29/23 Unknown History calcium carbonate 600 mg calcium 600 mg PO DAILY 03/29/23 03/29/23 Unknown History (1,500 mg) tablet folic acid 1 mg tablet 1 mg PO DAILY 03/29/23 03/29/23 Unknown History hydroxychloroquine 200 mg tablet 200 mg PO DAILY 03/29/23 03/29/23 Unknown History leflunomide 20 mg tablet 20 mg PO DAILY 03/29/23 03/29/23 Unknown History loratadine 10 mg tablet 10 mg PO DAILY 03/29/23 03/29/23 Unknown History methotrexate sodium 25 mg/mL 20 mg subcut WE 03/29/23 03/29/23 Unknown History injection solution omeprazole 20 mg capsule,delayed 20 mg PO DAILY 03/29/23 03/29/23 Unknown History release tramadol 50 mg tablet 100 mg PO BID PRN pain 03/29/23 03/29/23 Unknown History Physical Exam 2 Vital Signs: Vital Signs: Last Vital Signs Temp 98.3 F 03/30/23 08:00 Pulse 105 H 03/30/23 08:38 Resp 20 03/30/23 08:38 BP 128/58 L 03/30/23 08:00 Pulse Ox 97 03/30/23 08:00 O2 Del Method Nasal Cannula 03/30/23 08:00 O2 Flow Rate 4 03/30/23 08:00 BMI result Body Mass Index 21.3 Const: General: comfortable and no acute distress O rientation/consciousness: patient oriented x3 HEENT: Other: Unremarkable Head: Yes normal to inspection Neck: Neck: Yes normal visual inspection Chest: Chest palpation & inspection: normal inspection of the chest Resp: Auscultation: crackles and breath sounds absent Cardio: Palpation: normal PMI Heart sounds: S1 normal heart sound present, S2 normal heart sound present, no gallops, no murmurs and no rubs GI: Palpation (GI): Soft to palpation Back/Spine/Pelvis: Other: unremarkable Skin: General skin exam: no rashes or lesions noted Neuro: General: patient oriented x3 Extrem: General: Yes normal to inspection Psych: Mental Status: mental status grossly normal Objective Labs and Meds 03/30/23 06:41 03/30/23 06:41 Lab results: Laboratory Results - last 24 hr 03/29/23 03/29/23 03/29/23 10:09 10:24 10:46 WBC 18.5 H RBC 3.61 L Hgb 10.4 L Hct 33.7 L MCV 93.4 MCH 28.8 MCHC 30.9 L RDW 17.5 H Plt Count 421 H MPV 10.4 Immature Gran % (Auto) 2.7 H Neut % (Auto) 86.1 H Lymph % (Auto) 6.1 L [place] % (Auto) 4.7 Eos % (Auto) 0.1 Baso % (Auto) 0.3 Lymph # (Auto) 1.1 L [place] # (Auto) 0.9 Eos # (Auto) 0.0 Baso # (Auto) 0.1 Abs Immat Gran (auto) 0.49 H Absolute Neuts (auto) 15.9 H Absolute Nucleated RBC 0.000 Nucleated RBC % (auto) 0.0 PT 15.4 H INR 1.3 H APTT 25.5 L VBG pH 7.38 VBG pCO2 33 VBG pO2 47 VBG HCO3 20 L VBG O2 Saturation TNP VBG Base Excess -3.6 Sodium 139 Potassium 3.6 Chloride 105 Carbon Dioxide 16 L Anion Gap 22 H BUN 25 H Creatinine 0.48 L Estim Creat Clear Calc 82.5 Estimated GFR > 60 Random Glucose 95 Lactic Acid 1.5 Calcium 8.9 Magnesium 2.4 Total Bilirubin 0.4 AST 40 H ALT 18 Alkaline Phosphatase 126 H Total Creatine Kinase 241 H Troponin I High Sens 365.2 H* B-Natriuretic Peptide 511 H Total Protein 6.1 L Albumin 3.0 L Urine Color Urine Appearance Urine pH Ur Specific [place] Urine Protein Urine Glucose (UA) Urine Ketones Urine Blood Urine Nitrite Ur Leukocyte Esterase Urine RBC Urine WBC Ur Squamous Epith Cells Urine Bacteria Hyaline Casts Influenza Type A (PCR) NEGATIVE Influenza Type B (PCR) NEGATIVE RSV RNA Qual (PCR) NEGATIVE SARS-CoV-2 RNA (RT-PCR) POSITIVE A 03/29/23 03/30/23 12:31 06:41 WBC 11.2 H RBC 3.34 L Hgb 9.6 L Hct 31.2 L MCV 93.4 MCH 28.7 MCHC 30.8 L RDW 17.3 H Plt Count 355 MPV 11.3 Immature Gran % (Auto) Neut % (Auto) Lymph % (Auto) [place] % (Auto) Eos % (Auto) Baso % (Auto) Lymph # (Auto) [place] # (Auto) Eos # (Auto) Baso # (Auto) Abs Immat Gran (auto) Absolute Neuts (auto) Absolute Nucleated RBC 0.000 Nucleated RBC % (auto) 0.0 PT INR APTT VBG pH VBG pCO2 VBG pO2 VBG HCO3 VBG O2 Saturation VBG Base Excess Sodium 141 Potassium 3.1 L Chloride 104 Carbon Dioxide 22 Anion Gap 18 BUN 22 H Creatinine 0.46 L Estim Creat Clear Calc 86.1 Estimated GFR > 60 Random Glucose 94 Lactic Acid Calcium 8.4 Magnesium 2.3 Total Bilirubin AST ALT Alkaline Phosphatase Total Creatine Kinase Troponin I High Sens 383.2 H* B-Natriuretic Peptide Total Protein Albumin Urine Color Yellow Urine Appearance Turbid Urine pH 6.0 Ur Specific [place] 1.010 Urine Protein Negative Urine Glucose (UA) Negative Urine Ketones 15 Urine Blood Negative Urine Nitrite Positive H Ur Leukocyte Esterase Large (3+) H Urine RBC 0-2 Urine WBC 11-20 H Ur Squamous Epith Cells 6-10 Urine Bacteria 4+ Hyaline Casts 0-2 Influenza Type A (PCR) Influenza Type B (PCR) RSV RNA Qual (PCR) SARS-CoV-2 RNA (RT-PCR) ECG Interpretation: EKG with sinus tachycardia, 103/Min; nonspecific ST-T changes, more prominent in the inferior leads. Imaging Radiologist's impression: Impressions Chest X-Ray 03/29/23 10:37 IMPRESSION: 1. Bilateral airspace opacities, left greater than right, nonspecific. Bilateral pneumonia and asymmetric pulmonary edema are within the differential diagnosis. Follow-up chest x-ray is recommended to confirm clearing. 2. Prominent soft tissue in the aorticopulmonary window suspicious for adenopathy. Both this finding and the pulmonary parenchymal findings would be better assessed by thoracic CT (with contrast) as clinically warranted. Cervical Spine CT 03/29/23 11:56 IMPRESSION: No acute intracranial process seen. Mild straightening of cervical lordosis likely spasm. No visible acute fracture, dislocation or subluxation seen. Mild degenerative changes C1-C2 disc level. Head CT 03/29/23 11:56 IMPRESSION: No acute intracranial process seen. Mild straightening of cervical lordosis likely spasm. No visible acute fracture, dislocation or subluxation seen. Mild degenerative changes C1-C2 disc level. Assessment and Plan (1) NSTEMI (non-ST elevated myocardial infarction): Status: Acute (2) COVID-19: Status: Acute Plan High sensitivity troponin levels 365 and 383. Cardiac BNP level 511. Chest x-ray shows bilateral airspace opacities, left greater than right. Bilateral pneumonia versus asymmetric pulmonary edema. Overall, probable demand related NSTEMI in setting of COVID infection. Treat with therapeutic heparin or Lovenox for 48 hours. Aspirin, statins. Due to low blood pressure, may not be able tolerate beta-blockers. Echocardiogram. Discussed with Dr. Bello. Time Spent With Patient Time: Total time managing care of this patient today ____ minutes. Procedures Date of Service Date of Service: 03/30/23
--- NOTE | 2023-03-30 09:50 | PHA.PROG ---
Admission Date/Time: March 29, 2023 15:32 Indication: Weight in k.8 kg Adjusted body weight in Kg: [place] body weight in Kg: Obesity Dosing Indication % IBW: Serum Creatinine - Last 168 Hours 03/29/23 03/30/23 10:46 06:41 Creatinine 0.48 L 0.46 L Estimated CrCl and GFR - Last 168 Hours 03/29/23 03/30/23 10:46 06:41 Estim Creat Clear Calc 82.5 86.1 Estimated GFR > 60 > 60 Vancomycin Loading Dose: 1250MG Current Vancomycin Dosing Regimen: 750mg q12h Vancomycin Monitoring using AUC goal of 400 - 600 range with trough as surrogate marker: AUC goal of 417 and trough of 12.2 Date and Time for next Vancomycin Level to be drawn: vanco random was scheduled for 03/31/23 @0700 Pharmacist Comments on Vancomycin Plan: Base on serum creatinine levels and patient's age of 72, dose was ordered for 750mg q12h and will adjust accordingly when random vanco level comes back. Vancomycin dosing will take advantage of [employer] as a clinical decision support tool that uses Bayesian modeling to calculate individual patient's pharmacokinetic parameters and forecast the patient's drug concentration time course with the target goal AUC 24 range of 400 - 600 mg/L/hr.
[2023-03-30] MEDS: dexAMETHasone sod phosphate 4 MG/ML VIAL 6 MG IVPUSH (11:10)
[2023-03-30] MEDS: Enoxaparin Sodium 60 MG/0.6 ML SYRINGE 50 MG SUBCUT ×2 (11:11→20:54)
[2023-03-30] MEDS: cefTRIAXone sodium 1 GM in 0.9 % Sodium Chloride 50 ML IV (11:12)
--- NOTE | 2023-03-30 11:23 | MHC.CLN ---
PT WITH INCREASED NUTRITION NEEDS R/T PRESSURE INJURY DIET RX: 2GM NA-APPROPRIATE RECOMMEND ADDING ENSURE MAX BID TO PROMOTE WOUND HEALING SUPP PROVIDES 300KCALS, 60G PROTEIN MONITOR PO INTAKE CLOSELY SEE ALSO FULL CLINICAL NUTRITION ASSESSMENT
--- NOTE | 2023-03-30 14:49 | MHC.CM.PN ---
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 FOR A TOTAL OF 7 HOURS PER WEEK N ASSISTS WITH PAYING BILLS, SHOPPING AND APPT TRANSPORTATION PT IS WHEEL CHAIR BOUND AT BASELINE BUT ABLE TO SELF TRANSFER PTS SISTER IS HER HCP AND SHE WILL BRING IN A COPY ON SUNDAY PCP: MARGIE BENAVIDEZ PER TRACI, PT HAD A FALL ON 03/16/23 AND HAS BEEN UNABLE TO SELF TRANSFER SINCE THEN SHE SAYS THE PT CALLS THEM, HER SISTER, OR EMS TO HELP HER TRANSFER BUT REFUSES TO GO TO THE ED WHEN SUGGESTED [facility] REPORTS THEY ARE CONCERNED THE PT WILL NEED STR AT DC SHE IS AWARE PT WILL NEED A PT EVAL AND TO QUALIFY FOR STR DCP TBD PENDING PT EVAL: HOME WITH RESUMPTION OF N AND ACCESSIBILITY LIFT TECHNICIAN SUPPORTS VS STR REFERRAL MADE BASED ON FACILITIES CONTACTED WITH PTS INSURANCE
--- NOTE | 2023-03-30 16:17 | W.PM.IDCN ---
History of Present Illness Data of Consult Service Date: 03/30/23 Requesting physician: Monie Bello Primary Care Provider: Gloria Hill MD [facility] Reason for consult: COVID with hypoxia She fell two weeks ago and has COVID. She has had shortness of breath one to two weeks. No one else is ill. She is hypoxic. Review of Systems Review of Systems: Yes all other systems are reviewed and are negative PMFSH Family History Family history: reviewed and not pertinent Social History Social History Household Members: Family Housing: House Do you presently have visiting nurse or other home services: Yes Patient Tobacco Use Status: Never used Tobacco Smoked in Last 30 Days: No Use of substances other than those prescribed or required for medical reasons: No Currently Displaying Signs/Symptoms of Drug Intoxication Withdrawal: No Advance Directives: No Advance Directives Information Provided: Yes Do you have thoughts of harming others: None Do you have a plan to hurt others: No Plan Recently lost weight without trying: Unsure Nutrition Risks: No Nutritional Risk Patient : No : No Poor oral hygiene: No service: No Meds Allergies Allergy/AdvReac Type Severity Reaction Status Date / Time No Known Allergies Allergy Verified 03/29/23 09:35 [No Known Allergies*] Active Medications: Current Medications Acetaminophen (Acetaminophen 325 Mg Tablet) 650 mg PO Q6H PRN PRN Reason: Pain, Mild (Pain Scale 1-3) Albuterol Sulfate (Albuterol Sulfate 90 Mcg 8 Gm Inhaler) 2 puff INHALE RQ4H PRN PRN Reason: Shortness of Breath/Wheezing Albuterol/Ipratropium (Albuterol/Iprat 2.5/0.5mg 3 Ml Ampul.Neb) 3 ml INHALE RQ4H WHILE AWAKE [facility] Last Admin: 03/30/23 15:45 Dose: 3 ml Aspirin (Aspirin Enteric Coated 81 Mg Tablet.Dr) 81 mg PO DAILY [facility] Benzonatate (Benzonatate 100 Mg Capsule) 100 mg PO TID PRN PRN Reason: Cough Buspirone HCl (Buspirone Hcl 5 Mg Tablet) 15 mg PO BID [facility] Last Admin: 03/30/23 09:01 Dose: 15 mg Calcium Carbonate (Calcium Carbonate 500 Mg Tablet) 500 mg PO DAILY [facility] Last Admin: 03/30/23 09:01 Dose: 500 mg Dexamethasone Sodium Phosphate (Dexamethasone Sod Phosphate 4 Mg/Ml Vial) 6 mg IVPUSH DAILY [facility] Last Admin: 03/30/23 11:10 Dose: 6 mg Docusate Sodium (Docusate Sodium 100 Mg Capsule) 100 mg PO DAILY PRN PRN Reason: Constipation Enoxaparin Sodium (Enoxaparin Sodium 60 Mg/0.6 Ml Syringe) 50 mg SUBCUT Q12H [facility] Stop: 03/31/23 22:01 Last Admin: 03/30/23 11:11 Dose: 50 mg Folic Acid (Folic Acid 1 Mg Tablet) 1 mg PO DAILY [facility] Last Admin: 03/30/23 09:01 Dose: 1 mg Furosemide (Furosemide 20 Mg Tablet) 20 mg PO BID@0900,1800 [facility]; Protocol Last Admin: 03/30/23 09:00 Dose: 20 mg Hydroxychloroquine Sulfate (Hydroxychloroquine Sulfate 200 Mg Tablet) 200 mg PO DAILY [facility] Last Admin: 03/30/23 09:00 Dose: 200 mg Ceftriaxone Sodium 1 gm/ (Sodium Chloride) 50 mls @ 100 mls/hr IV Q24H [facility] Last Infusion: 03/30/23 11:50 Dose: Infused Albumin Human (Kedbumin 25 %) 100 mls @ 100 mls/hr IV Q6H [facility] Stop: 03/31/23 02:44 Last Infusion: 03/30/23 15:04 Dose: Infused Leflunomide (Leflunomide 10 Mg Tablet) 20 mg PO DAILY [facility] Last Admin: 03/30/23 09:01 Dose: 20 mg Loratadine (Loratadine 10 Mg Tablet) 10 mg PO DAILY [facility] Last Admin: 03/30/23 09:01 Dose: 10 mg Melatonin (Melatonin 3 Mg Tablet) 6 mg PO BEDTIME PRN PRN Reason: Insomnia Omeprazole (Omeprazole 20 Mg Capsule.Dr) 20 mg PO DAILY@0630 [facility] Last Admin: 03/30/23 05:17 Dose: 20 mg Ondansetron HCl (Ondansetron Hcl 4 Mg/2 Ml Vial) 4 mg IVPUSH Q8H PRN PRN Reason: Nausea and Vomiting Pharmacy Consult (Consult Rx Vancomycin Dosing) 1 each MISCELLANE DAILY PRN PRN Reason: Consult order Sodium Chloride (0.9 % Sodium Chloride Flush 3 Ml Syringe) 3 ml IVFLUSH QSHIFT [facility] Last Admin: 03/30/23 09:02 Dose: 3 ml Tramadol HCl (Tramadol Hcl 50 Mg Tablet) 100 mg PO BID PRN PRN Reason: Pain, Moderate(Pain Scale 4-6) Home Medications Medication Instructions Recorded Confirmed Last Taken Type buspirone 15 mg tablet 15 mg PO BID 03/29/23 03/29/23 Unknown History calcium carbonate 600 mg calcium 600 mg PO DAILY 03/29/23 03/29/23 Unknown History (1,500 mg) tablet folic acid 1 mg tablet 1 mg PO DAILY 03/29/23 03/29/23 Unknown History hydroxychloroquine 200 mg tablet 200 mg PO DAILY 03/29/23 03/29/23 Unknown History leflunomide 20 mg tablet 20 mg PO DAILY 03/29/23 03/29/23 Unknown History loratadine 10 mg tablet 10 mg PO DAILY 03/29/23 03/29/23 Unknown History methotrexate sodium 25 mg/mL 20 mg subcut WE 03/29/23 03/29/23 Unknown History injection solution omeprazole 20 mg capsule,delayed 20 mg PO DAILY 03/29/23 03/29/23 Unknown History release tramadol 50 mg tablet 100 mg PO BID PRN pain 03/29/23 03/29/23 Unknown History Physical Exam Vital Signs: Vital Signs: Last Vital Signs Temp 97.9 F 03/30/23 16:00 Pulse 101 H 03/30/23 16:00 Resp 20 03/30/23 16:00 BP 116/56 L 03/30/23 16:00 Pulse Ox 96 03/30/23 16:00 O2 Del Method Nasal Cannula 03/30/23 16:00 O2 Flow Rate 2 03/30/23 16:00 BMI result Body Mass Index 21.3 Const: General: cooperative HEENT: Head: Yes normal to inspection Face and sinus: Yes normal facial exam Mouth: Normal oral and palatal mucosa present Teeth and gingiva: dentition normal Eyes: General: appearance normal, both eyes and all related structures Pupils: Equal, round and reactive pupils present Resp: Effort & Inspection: normal respiratory effort Cardio: Rate: regular rate Rhythm: regular rhythm GI: Palpation (GI): Soft to palpation and nontender : General: Yes no CVA tenderness Back/Spine/Pelvis: Back: no CVA tenderness Skin: General skin exam: no rashes or lesions noted Neuro: General: moves all extremities Cranial nerves: Yes Equal, round and reactive pupils present Extrem: General: Yes normal to inspection Psych: Appearance: grossly normal Results Labs 03/30/23 06:41 03/30/23 06:41 Labs: Short CBC 03/30/23 Range/Units 06:41 WBC 11.2 H (4.8-10.8) X10*3/uL Hgb 9.6 L (12.0-16.0) g/dl Hct 31.2 L (37.0-47.0) % Plt Count 355 (160-400) X10*3/uL BMP 03/30/23 06:41 Sodium 141 Potassium 3.1 L Chloride 104 Carbon Dioxide 22 BUN 22 H Creatinine 0.46 L Calcium 8.4 Microbiology Microbiology Results: Microbiology 03/29/23 10:09 Blood - Venous Blood Culture - Preliminary No growth after 24 hours. 03/29/23 Unknown Urine clean catch - Urine cerrato top Urine Culture - Final 03/29/23 10:09 Blood - Venous Blood Culture - Preliminary Prelim: GPC Gram Stain only Assessment and Plan (1) COVID-19: Status: Acute (2) Pneumonia: Status: Acute Probably contaminant blood culture 1/2. Looks like viral pneumonia Plan Hold Ceftriaxone at this time. No Remdesivir since long time COVID. Would continue Dexamethasone until not hypoxic or ten days. Check procalcitonin. Time Spent With Patient Time: Total time managing care of this patient today ____ minutes.
--- NOTE | 2023-03-30 17:09 | HO.PM.IMPN ---
Subjective Subjective Date of Service: 03/30/23 Interval History: Acute hypoxic respiratory failure in the setting COVID infection Review of Systems patient is still sob,some ocassional cough no fever or chills Physical Exam Vital Signs: Vital Signs: Last Vital Signs Temp 97.9 F 03/30/23 16:00 Pulse 101 H 03/30/23 16:00 Resp 20 03/30/23 16:00 BP 116/56 L 03/30/23 16:00 Pulse Ox 96 03/30/23 16:00 O2 Del Method Nasal Cannula 03/30/23 16:00 O2 Flow Rate 2 03/30/23 16:00 BMI result Body Mass Index 21.3 Appearance: Alert.? Oriented X3.? sob cvs: rrr, [id number] , no murmur res: clear to auscultation ,no rhonchii or wheezing abd: no rebound or guarding ,nt, bs present. ext pulses present , no cyanosis . neuro: axo3 , nonfocal. Objective Data Active Medications Acetaminophen (Acetaminophen 325 Mg Tablet) 650 mg PO Q6H PRN PRN Reason: Pain, Mild (Pain Scale 1-3) Albuterol Sulfate (Albuterol Sulfate 90 Mcg 8 Gm Inhaler) 2 puff INHALE RQ4H PRN PRN Reason: Shortness of Breath/Wheezing Albuterol/Ipratropium (Albuterol/Iprat 2.5/0.5mg 3 Ml Ampul.Neb) 3 ml INHALE RQ4H WHILE AWAKE [facility] Last Admin: 03/30/23 15:45 Dose: 3 ml Documented By: GILDA Aspirin (Aspirin Enteric Coated 81 Mg Tablet.) 81 mg PO DAILY [facility] Benzonatate (Benzonatate 100 Mg Capsule) 100 mg PO TID PRN PRN Reason: Cough Buspirone HCl (Buspirone Hcl 5 Mg Tablet) 15 mg PO BID [facility] Last Admin: 03/30/23 09:01 Dose: 15 mg Documented By: KEARA Calcium Carbonate (Calcium Carbonate 500 Mg Tablet) 500 mg PO DAILY [facility] Last Admin: 03/30/23 09:01 Dose: 500 mg Documented By: KEARA Dexamethasone Sodium Phosphate (Dexamethasone Sod Phosphate 4 Mg/Ml Vial) 6 mg IVPUSH DAILY [facility] Last Admin: 03/30/23 11:10 Dose: 6 mg Documented By: KEARA Docusate Sodium (Docusate Sodium 100 Mg Capsule) 100 mg PO DAILY PRN PRN Reason: Constipation Enoxaparin Sodium (Enoxaparin Sodium 60 Mg/0.6 Ml Syringe) 50 mg SUBCUT Q12H [facility] Stop: 03/31/23 22:01 Last Admin: 03/30/23 11:11 Dose: 50 mg Documented By: KEARA Folic Acid (Folic Acid 1 Mg Tablet) 1 mg PO DAILY [facility] Last Admin: 03/30/23 09:01 Dose: 1 mg Documented By: KEARA Furosemide (Furosemide 20 Mg Tablet) 20 mg PO BID@0900,1800 [facility]; Protocol Last Admin: 03/30/23 09:00 Dose: 20 mg Documented By: KEARA Hydroxychloroquine Sulfate (Hydroxychloroquine Sulfate 200 Mg Tablet) 200 mg PO DAILY [facility] Last Admin: 03/30/23 09:00 Dose: 200 mg Documented By: KEARA Albumin Human (Kedbumin 25 %) 100 mls @ 100 mls/hr IV Q6H [facility] Stop: 03/31/23 02:44 Last Infusion: 03/30/23 15:04 Dose: Infused Documented By: KEARA Leflunomide (Leflunomide 10 Mg Tablet) 20 mg PO DAILY [facility] Last Admin: 03/30/23 09:01 Dose: 20 mg Documented By: KEARA Loratadine (Loratadine 10 Mg Tablet) 10 mg PO DAILY [facility] Last Admin: 03/30/23 09:01 Dose: 10 mg Documented By: KEARA Melatonin (Melatonin 3 Mg Tablet) 6 mg PO BEDTIME PRN PRN Reason: Insomnia Omeprazole (Omeprazole 20 Mg Capsule.Dr) 20 mg PO DAILY@0630 [facility] Last Admin: 03/30/23 05:17 Dose: 20 mg Documented By: GE Ondansetron HCl (Ondansetron Hcl 4 Mg/2 Ml Vial) 4 mg IVPUSH Q8H PRN PRN Reason: Nausea and Vomiting Pharmacy Consult (Consult Rx Vancomycin Dosing) 1 each MISCELLANE DAILY PRN PRN Reason: Consult order Sodium Chloride (0.9 % Sodium Chloride Flush 3 Ml Syringe) 3 ml IVFLUSH QSHIFT [facility] Last Admin: 03/30/23 16:27 Dose: Not Given Documented By: KEARA Non-Admin Reason: Previously Administered Tramadol HCl (Tramadol Hcl 50 Mg Tablet) 100 mg PO BID PRN PRN Reason: Pain, Moderate(Pain Scale 4-6) Labs 03/30/23 06:41 03/30/23 06:41 Labs: Laboratory Results - last 24 hr 03/30/23 06:41 MCV 93.4 MCH 28.7 MCHC 30.8 L RDW 17.3 H Plt Count 355 MPV 11.3 Absolute Nucleated RBC 0.000 Nucleated RBC % (auto) 0.0 Anion Gap 18 Estim Creat Clear Calc 86.1 Estimated GFR > 60 Random Glucose 94 Calcium 8.4 Magnesium 2.3 Microbiology Microbiology Results: Microbiology 03/29/23 10:09 Blood Culture - Preliminary Blood - Venous No growth after 24 hours. 03/29/23 Unknown Urine Culture - Final Urine clean catch - Urine cerrato top 03/29/23 10:09 Blood Culture - Preliminary Blood - Venous Prelim: GPC Gram Stain only Assessment and Plan (1) NSTEMI (non-ST elevated myocardial infarction): Status: Acute (2) UTI (urinary tract infection): Status: Acute (3) New onset of congestive heart failure: Status: Acute (4) COVID-19: Status: Acute Plan 72-year-old female with a PMH significant for rheumatoid arthritis?who presents to the ED from home for evaluation of increasing SOB and dyspnea for the past 1-2 weeks, worse last night and this morning. Pt will be admitted to the hospital for treatment of acute hypoxic respiratory failure in the setting of COVID infection and new onset CHF. Acute hypoxic respiratory failure in the setting COVID infection Pt sesatting as low as 87% on RA, not on home O2 Dexamethasone 6 mg, DuoNebs, albuterol inhaler p.r.n.,remdesivir not indicated since symptom onset up to 2 weeks ago Titrate supplemental O2 >92, wean as tolerated Monitor respiratory status New onset CHF Likely secondary to COVID infection Patient with increased SOB, CXR with evidence of pulmonary edema, elevated BNP, bilateral lower leg pitting edema Furosemide 20 mg IV b.i.d. Follow mag rain, I/O Echocardiogram:Cardiology consult:c The left ventricular systolic function is normal. The calculated ejection fraction is 64% by biplane method. - Possible basal inferior/inferolateral hypokinesis. seen by cardiology: demand nstemi due to covid. continue lasix ,also added asa,lovenox for 48hrs Monitor on telemetry UTI:UA positive for UTI, patient with polyuria sepsis improving continue Ceftriaxone, started on 03/29/2023 Elevated troponins Initial troponins 365.2 with repeat with no delta change at 383.2 Patient asymptomatic: Denies chest pain/pressure, palpitations, EKG without acute ischemia Echocardiogram:Cardiology consult:c The left ventricular systolic function is normal. The calculated ejection fraction is 64% by biplane method. - Possible basal inferior/inferolateral hypokinesis. seen by cardiology: demand nstemi due to covid. continue asa,lovenox for 48hrs Monitor on telemetry Stage II decubitus ulcers Patient positioning q.2h Wound care nurse consult Rheumatoid arthritis Continue hydroxychloroquine, leflunomide GERD Continue omeprazole Full Code DVT Prophylaxis: Lovenox ongoing hospitalization need: treatment of?acute hypoxic respiratory failure in the setting of COVID infection and new onset CH,nstemi-need iv lasix ,asa ,lovenox , moniter on tele . Time Spent With Patient Time: Total time managing care of this patient today ____ minutes. Quality Stroke Does the patient have a stroke diagnosis?: No VTE Prior VTE?: No VTE Risk Level:: Medical - moderate - high VTE Device Contraindication: Treatment Not Indicated VTE Drug Contraindication: N/A - Med Ordered
[2023-03-30 19:35] LABS: Sodium 138 mmol/L (135-145)
[2023-03-30 19:55] LABS: Procalcitonin 0.11 ng/mL
[2023-03-30] MEDS: Acetaminophen 325 MG TABLET 650 MG PO (21:09)
[2023-03-31] MEDS: Albumin Human 25 % 100 ML IV (01:44)
[2023-03-31 03:49] VITALS: BP 131/63; PULSE 85; RESP 18; TEMP 37; O2SAT 94
[2023-03-31] MEDS: Omeprazole 20 MG CAPSULE.DR PO (06:22)
[2023-03-31 07:50] VITALS: BP 146/67; PULSE 79; RESP 18; TEMP 36.6; O2SAT 99
[2023-03-31 08:15] LABS: Anion Gap 19 (12-20); Blood Urea Nitrogen 12 mg/dL (9-16); Calcium 9.2 mg/dL (8.4-10.2); Carbon Dioxide 20 mmol/L (22-29); Chloride 105 mmol/L (96-108); Creatinine Clr Calc Pharmacy 74.7; Estimated Glomerular Filt Rate > 60; Glucose Random 110 mg/dL (60-115); Potassium 2.8 mmol/L (3.3-5.1); Sodium 141 mmol/L (135-145)
[2023-03-31 08:16] LABS: Vancomycin Random 6.2 mcg/mL (15-20)
[2023-03-31] MEDS: Aspirin Enteric Coated 81 MG TABLET.DR PO (09:57)
[2023-03-31] MEDS: Potassium Chloride Packet 20 MEQ PACKET 40 MEQ PO (09:57)
[2023-03-31] MEDS: Leflunomide 10 MG TABLET 20 MG PO (09:57)
[2023-03-31] MEDS: Acetaminophen 325 MG TABLET 650 MG PO (09:57)
[2023-03-31] MEDS: Hydroxychloroquine Sulfate 200 MG TABLET PO (09:58)
[2023-03-31] MEDS: busPIRone HCl 5 MG TABLET 15 MG PO ×2 (09:58→21:12)
[2023-03-31] MEDS: Loratadine 10 MG TABLET PO (09:58)
[2023-03-31] MEDS: Folic Acid 1 MG TABLET PO (09:58)
[2023-03-31] MEDS: dexAMETHasone sod phosphate 4 MG/ML VIAL 6 MG IVPUSH (09:58)
[2023-03-31] MEDS: Furosemide 20 MG TABLET PO ×2 (09:58→17:48)
[2023-03-31] MEDS: Potassium Chloride Packet 20 MEQ PACKET PO (09:58)
[2023-03-31] MEDS: 0.9 % Sodium Chloride Flush 3 ML SYRINGE IVFLUSH ×2 (09:58→15:46)
[2023-03-31] MEDS: Enoxaparin Sodium 60 MG/0.6 ML SYRINGE 50 MG SUBCUT ×2 (09:59→21:12)
[2023-03-31 11:57] VITALS: BP 120/57; PULSE 100; RESP 18; TEMP 37.1; O2SAT 97
[2023-03-31 16:00] VITALS: BP 145/68; PULSE 104; RESP 20; TEMP 36.4; O2SAT 95
--- NOTE | 2023-03-31 16:11 | P.PNIM_ITS ---
Subjective Subjective Date of Service: 03/31/23 Interval History: Acute hypoxic respiratory failure in the setting COVID infection Review of Systems Shortness of breath somewhat improving than yesterday, no chest pain No cough no fever. Physical Exam 2 Vital Signs: Vital Signs: Last Vital Signs Temp 98.7 F 03/31/23 11:57 Pulse 100 03/31/23 11:57 Resp 18 03/31/23 11:57 BP 120/57 L 03/31/23 11:57 Pulse Ox 97 03/31/23 11:57 O2 Del Method Nasal Cannula 03/31/23 11:57 O2 Flow Rate 3 03/31/23 11:57 BMI result Body Mass Index 21.3 Appearance: Alert.? Oriented X3.? sob cvs: rrr, [id number] , no murmur res: clear to auscultation ,no rhonchii or wheezing abd: no rebound or guarding ,nt, bs present. ext pulses present , no cyanosis . neuro: axo3 , nonfocal. Objective Data Active Medications Acetaminophen (Acetaminophen 325 Mg Tablet) 650 mg PO Q6H PRN PRN Reason: Pain, Mild (Pain Scale 1-3) Last Admin: 03/31/23 09:57 Dose: 650 mg Documented By: AURELIO Albuterol Sulfate (Albuterol Sulfate 90 Mcg 8 Gm Inhaler) 2 puff INHALE RQ4H PRN PRN Reason: Shortness of Breath/Wheezing Albuterol/Ipratropium (Albuterol/Iprat 2.5/0.5mg 3 Ml Ampul.Neb) 3 ml INHALE RQ4H WHILE AWAKE [facility] Last Admin: 03/31/23 12:35 Dose: Not Given Documented By: TK Non-Admin Reason: Patient Refused Aspirin (Aspirin Enteric Coated 81 Mg Tablet.) 81 mg PO DAILY [facility] Last Admin: 03/31/23 09:57 Dose: 81 mg Documented By: AURELIO Benzonatate (Benzonatate 100 Mg Capsule) 100 mg PO TID PRN PRN Reason: Cough Buspirone HCl (Buspirone Hcl 5 Mg Tablet) 15 mg PO BID [facility] Last Admin: 03/31/23 09:58 Dose: 15 mg Documented By: AURELIO Calcium Carbonate (Calcium Carbonate 500 Mg Tablet) 500 mg PO DAILY [facility] Last Admin: 03/31/23 09:58 Dose: 500 mg Documented By: AURELIO Dexamethasone Sodium Phosphate (Dexamethasone Sod Phosphate 4 Mg/Ml Vial) 6 mg IVPUSH DAILY [facility] Last Admin: 03/31/23 09:58 Dose: 6 mg Documented By: AURELIO Docusate Sodium (Docusate Sodium 100 Mg Capsule) 100 mg PO DAILY PRN PRN Reason: Constipation Enoxaparin Sodium (Enoxaparin Sodium 60 Mg/0.6 Ml Syringe) 50 mg SUBCUT Q12H [facility] Stop: 03/31/23 22:01 Last Admin: 03/31/23 09:59 Dose: 50 mg Documented By: AURELIO Folic Acid (Folic Acid 1 Mg Tablet) 1 mg PO DAILY [facility] Last Admin: 03/31/23 09:58 Dose: 1 mg Documented By: AURELIO Furosemide (Furosemide 20 Mg Tablet) 20 mg PO BID@0900,1800 [facility]; Protocol Last Admin: 03/31/23 09:58 Dose: 20 mg Documented By: AURELIO Hydroxychloroquine Sulfate (Hydroxychloroquine Sulfate 200 Mg Tablet) 200 mg PO DAILY [facility] Last Admin: 03/31/23 09:58 Dose: 200 mg Documented By: AURELIO Leflunomide (Leflunomide 10 Mg Tablet) 20 mg PO DAILY [facility] Last Admin: 03/31/23 09:57 Dose: 20 mg Documented By: AURELIO Loratadine (Loratadine 10 Mg Tablet) 10 mg PO DAILY [facility] Last Admin: 03/31/23 09:58 Dose: 10 mg Documented By: AURELIO Melatonin (Melatonin 3 Mg Tablet) 6 mg PO BEDTIME PRN PRN Reason: Insomnia Omeprazole (Omeprazole 20 Mg Capsule.) 20 mg PO DAILY@0630 [facility] Last Admin: 03/31/23 06:22 Dose: 20 mg Documented By: STEPHANIE Ondansetron HCl (Ondansetron Hcl 4 Mg/2 Ml Vial) 4 mg IVPUSH Q8H PRN PRN Reason: Nausea and Vomiting Pharmacy Consult (Consult Rx Vancomycin Dosing) 1 each MISCELLANE DAILY PRN PRN Reason: Consult order Sodium Chloride (0.9 % Sodium Chloride Flush 3 Ml Syringe) 3 ml IVFLUSH QSHIFT [facility] Last Admin: 03/31/23 15:46 Dose: 3 ml Documented By: LETICIA Tramadol HCl (Tramadol Hcl 50 Mg Tablet) 100 mg PO BID PRN PRN Reason: Pain, Moderate(Pain Scale 4-6) Labs 03/30/23 06:41 03/31/23 07:02 Labs: Laboratory Results - last 24 hr 03/30/23 03/31/23 18:32 07:02 Hold Purple Top SEE NOTE Anion Gap 19 Estim Creat Clear Calc 74.7 Estimated GFR > 60 Random Glucose 110 Calcium 9.2 D Procalcitonin 0.11 Random Vancomycin 6.2 L Microbiology Microbiology Results: Microbiology 03/29/23 10:09 Blood Culture - Preliminary Blood - Venous No growth after 48 hours. 03/29/23 10:09 Blood Culture - Final Blood - Venous Coag negative Staphylococcus Assessment and Plan (1) NSTEMI (non-ST elevated myocardial infarction): Status: Acute (2) UTI (urinary tract infection): Status: Acute Plan 72-year-old female with a PMH significant for rheumatoid arthritis?who presents to the ED from home for evaluation of increasing SOB and dyspnea for the past 1- 2 weeks, worse last night and this morning. Pt will be admitted to the hospital for treatment of acute hypoxic respiratory failure in the setting of COVID infection and new onset CHF. Acute hypoxic respiratory failure in the setting COVID infection Pt sesatting as low as 87% on RA, not on home O2 Dexamethasone 6 mg, DuoNebs, albuterol inhaler p.r.n.,remdesivir not indicated since symptom onset up to 2 weeks ago Titrate supplemental O2 >92, wean as tolerated Monitor respiratory status New onset CHF Likely secondary to COVID infection Patient with increased SOB, CXR with evidence of pulmonary edema, elevated BNP, bilateral lower leg pitting edema Furosemide 20 mg IV b.i.d. Follow lychip, mag, I/O Echocardiogram:Cardiology consult:c The left ventricular systolic function is normal. The calculated ejection fraction is 64% by biplane method. - Possible basal inferior/inferolateral hypokinesis. seen by cardiology: demand nstemi due to covid. continue lasix ,also added asa,statin,lovenox for 48hrs Monitor on telemetry UTI:UA positive for UTI, patient with polyuria sepsis improving continue Ceftriaxone, started on 03/29/2023 Elevated troponins Initial troponins 365.2 with repeat with no delta change at 383.2 Patient asymptomatic: Denies chest pain/pressure, palpitations, EKG without acute ischemia Echocardiogram:Cardiology consult:c The left ventricular systolic function is normal. The calculated ejection fraction is 64% by biplane method. - Possible basal inferior/inferolateral hypokinesis. seen by cardiology: demand nstemi due to covid. continue asa,lovenox for 48hrs Monitor on telemetry Stage II decubitus ulcers Patient positioning q.2h Wound care nurse consult Rheumatoid arthritis Continue hydroxychloroquine, leflunomide GERD Continue omeprazole Full Code DVT Prophylaxis: Lovenox ongoing hospitalization need: treatment of?acute hypoxic respiratory failure in the setting of COVID infection and new onset CH,nstemi-need iv lasix ,asa ,lovenox , moniter on tele . Time Spent With Patient Time: Total time managing care of this patient today ____ minutes. Quality Stroke Does the patient have a stroke diagnosis?: No VTE Prior VTE?: No VTE Risk Level:: Medical - moderate - high VTE Device Contraindication: Treatment Not Indicated VTE Drug Contraindication: N/A - Med Ordered
[2023-03-31] MEDS: Atorvastatin Calcium 40 MG TABLET PO (17:37)
[2023-03-31] MEDS: Potassium Chloride/H20 10 MEQ/100 ML PIGGYBACK 100 MEQ IV ×4 (17:39→23:11)
[2023-03-31 20:00] VITALS: BP 133/70; PULSE 93; RESP 18; TEMP 35.9; O2SAT 96
[2023-03-31] MEDS: Potassium Chloride ER 20 MEQ TAB.ER.PRT PO (21:12)
[2023-03-31 23:37] VITALS: BP 132/65; PULSE 81; RESP 18; TEMP 36.5; O2SAT 97
[2023-03-31 23:39] LABS: Magnesium 2.2 mg/dL (1.6-2.6)
--- NOTE | 2023-04-01 | ECG_ITS ---
Test Reason : Chest pain Blood Pressure : / mmHG Vent. Rate : 097 BPM Atrial Rate : 097 BPM P-R Int : 124 ms QRS Dur : 088 ms QT Int : 408 ms P-R-T Axes : 045 031 019 degrees QTc Int : 518 ms Normal sinus rhythm T wave abnormality, consider anterior ischemia Abnormal ECG When compared with ECG of 29-MAR-2023 09:56, T wave inversion now evident in Anterior leads Referred By: Monie Bello Electronically Signed By:ALLI BOATENG MD
[2023-04-01 04:00] VITALS: BP 145/74; PULSE 86; RESP 18; TEMP 36.4; O2SAT 97
[2023-04-01] MEDS: Omeprazole 20 MG CAPSULE.DR PO (06:21)
[2023-04-01 07:20] VITALS: BP 133/69; PULSE 93; RESP 16; TEMP 37; O2SAT 99
[2023-04-01] MEDS: Leflunomide 10 MG TABLET 20 MG PO (07:45)
[2023-04-01] MEDS: Folic Acid 1 MG TABLET PO (07:46)
[2023-04-01] MEDS: busPIRone HCl 5 MG TABLET 15 MG PO (07:46)
[2023-04-01] MEDS: Loratadine 10 MG TABLET PO (07:46)
[2023-04-01] MEDS: Hydroxychloroquine Sulfate 200 MG TABLET PO (07:46)
[2023-04-01] MEDS: Aspirin Enteric Coated 81 MG TABLET.DR PO (07:46)
[2023-04-01] MEDS: Furosemide 20 MG TABLET PO (07:46)
[2023-04-01] MEDS: 0.9 % Sodium Chloride Flush 3 ML SYRINGE IVFLUSH (07:47)
[2023-04-01] MEDS: dexAMETHasone sod phosphate 4 MG/ML VIAL 6 MG IVPUSH (07:48)
[2023-04-01] MEDS: Acetaminophen 325 MG TABLET 650 MG PO (08:00)
[2023-04-01 08:12] LABS: Creatinine Clr Calc Pharmacy 76.2; Estimated Glomerular Filt Rate > 60
--- NOTE | 2023-04-01 10:38 | P.PNCA_ITS ---
Subjective Subjective Date of Service: 04/01/23 Interval history: She states that she is feeling generally okay. Had reported some chest pains intermittently but resolved now. Not clear if it is related to the COVID or something cardiac. Very vague description. Review of Systems Review of Systems Yes all other systems are reviewed and are negative Constitutional: Reports as per HPI and Reports no additional constitutional complaints Eyes: Reports as per HPI and Denies no additional eye complaints Denies system reviewed and no additional complaints, except as documented and Reports as per HPI Cardiovascular: Reports as per HPI, Reports no additional cardiovascular complaints, Denies acrocyanosis, Denies cool extremities, Denies chest pain, Denies leg edema, Denies lightheadedness, Denies palpitations and Denies dyspnea Respiratory: Reports as per HPI, Denies no additional respiratory complaints and Denies dyspnea Gastrointestinal: Reports as per HPI and Denies no additional gastrointestinal complaints Genitourinary: Reports as per HPI Musculoskeletal: Reports no additional musculoskeletal complaints and Reports as per HPI Skin/Breast: Reports system reviewed and no additional complaints, except as docu Reports system reviewed and no additional complaints, except as documented and Reports as per HPI Psychiatric: Reports no additional psychiatric complaints and Reports as per HPI Endocrine: Reports no additional endocrine complaints, Reports as per HPI and Denies palpitations Hematologic/Lymphatic: Reports no additional hematologic/lymphatic complaints and Reports as per HPI Allergic/Immunologic: Reports no additional allergic/immunologic complaints and Reports as per HPI Physical Exam Vital Signs: Last Vital Signs Temp 98.6 F 04/01/23 07:20 Pulse 93 04/01/23 07:20 Resp 16 04/01/23 07:20 BP 133/69 04/01/23 07:20 Pulse Ox 99 04/01/23 07:20 O2 Del Method Nasal Cannula 04/01/23 07:20 O2 Flow Rate 2 04/01/23 07:20 BMI result Body Mass Index 21.3 Const General: comfortable and no acute distress Orientation/consciousness: patient oriented x3 HEENT Other: Unremarkable Head: Yes normal to inspection Neck Neck: Yes normal visual inspection Chest Chest palpation & inspection: normal inspection of the chest Resp Auscultation: crackles and breath sounds absent Cardio Palpation: normal PMI Heart sounds: S1 normal heart sound present, S2 normal heart sound present, no gallops, no murmurs and no rubs GI Palpation (GI): Soft to palpation Back/Spine/Pelvis Other: unremarkable Skin General skin exam: no rashes or lesions noted Neuro General: patient oriented x3 Extrem General: Yes normal to inspection Psych Mental Status: mental status grossly normal Objective Labs and Meds 03/30/23 06:41 04/01/23 07:12 Lab results: Laboratory Results - last 24 hr 03/31/23 04/01/23 07:02 07:12 Potassium 4.0 D Creatinine 0.52 Estim Creat Clear Calc 76.2 Estimated GFR > 60 Magnesium 2.2 Progress Note: A&P Assessment and plan (1) NSTEMI (non-ST elevated myocardial infarction): Status: Acute (2) COVID-19: Status: Acute Plan High sensitivity troponin levels 365 and 383. Cardiac BNP level 511. Chest x-ray shows bilateral airspace opacities, left greater than right. Bilateral pneumonia versus asymmetric pulmonary edema. Echocardiogram with LVEF of 64%. Possible basal inferior/inferolateral hypokinesis. EKG today shows sinus rhythm at 97/Min; T inversions in the anterior chest leads V1 to V3 not seen in the initial EKG. Overall, suspect demand related NSTEMI in setting of COVID infection. Treat with therapeutic heparin or Lovenox. Aspirin, statins. Some beta- blockers. Ideally needs cardiac catheterization. Timing will need to be decided. Will discuss with Dr. Bello. Time Spent With Patient Time: Total time managing care of this patient today ____ minutes. Progress Note: Quality Stroke Does the patient have a stroke diagnosis?: No Procedures Date of Service Date of Service: 04/01/23
--- NOTE | 2023-04-01 11:40 | PM.DS ---
DS: Providers Provider Date of Service: 04/01/23 Date of admission: 03/29/23 15:32 Date of discharge: 04/01/23 Primary care physician: Gloria Hill MD Consults: 03/29/23 15:31 Consult to Cardiology Routine Consulting Provider: [facility] Reason for consultation: New onset CHF 03/29/23 15:36 Consult to Infectious Diseases Routine Consulting Provider: [facility] Infectious Disease Reason for consultation: COVID+, ?remdesivir Attending physician on discharge: Monie Bello Discharging clinician: Monie Bello DS: Diagnosis Discharge Diagnosis (1) NSTEMI (non-ST elevated myocardial infarction): Status: Acute (2) COVID-19: Status: Acute DS: Summary Hospital Course Hospital Course: 72-year-old female with a PMH significant for rheumatoid arthritis?who presents to the ED from home for evaluation of increasing SOB and dyspnea for the past 1-2 weeks. Patient notes that she had a mechanical fall at home 2 weeks ago, falling on her left arm and leg. Currently patient states she has no pain in her arm or leg. Denies lightheadedness, dizziness. No LOC or head strike. Pt has home N visits and staff note that patient refused to go to the hospital for evaluation after her fall, and that patient's condition has continually declined since her fall. Patient herself complains of shortness of breath that began 1-2 weeks ago, shortly after her fall. Reports shortness of breath increased acutely yesterday and again this morning, which prompted her visit to the emergency department. Denies cough. Has noticed since yesterday that she has had increased lower leg edema, especially in her feet. Also reports polyuria for the past week, but denies dysuria. No chest pain/pressure, palpitations. No fever, chills, nausea, vomiting. No diarrhea, belly pain. Patient states she lives with her son and is nonambulatory, mostly confined to her wheelchair. In the ED patient temperature of 96.6 degrees, tachycardic up to 105, tachypneic up to 22, with initial soft BP of 131/59, satting at 94% O2 on 3 L NC. Labs were significant for leukocytosis of 18.5, H&H 10.4/33.7, BUN 25, creatinine 0.48, AST 40, alk-phos 126, CPK 241, initial troponin 365.2 with repeat 383.2, BNP 511. CXR showed bilateral airspace opacities with left greater than right, nonspecific, suggestive of bilateral pneumonia or asymmetric pulmonary edema. CT?of head negative for acute intracranial process. CT of cervical spine with no visible acute fracture, dislocation, or subluxation but with mild degenerative changes at the C1-C2 disc level. EKG demonstrated sinus tachycardia of 103 with nonspecific T-wave abnormality in inferior leads, and no evidence of ST elevations or depressions. Pt was treated with ceftriaxone and furosemide. Pt will be admitted to the hospital for treatment of acute hypoxic respiratory failure in the setting of COVID infection and new onset CHF. Hospital course: Acute hypoxic respiratory failure in the setting COVID infection, new onset CHF, NSTEMI: Patient was started on dexamethasone ,iv diuretics respectively for COVID and chf , shortness of breath seems to be improving. In addition patient has NSTEMI,intermittent chest pain, elevated troponin: Started on aspirin, statin, Lovenox, low dose metoprolol-patient still keep having symptoms intermittent: Discussed with Cardiology patient-need to go to [facility] for further cardiac workup and intervention. Patient also has UTI: Symptoms seems to be improved, will switch to p.o. antibiotics -ceftin 500 mg bid for 4 days. Hypokalemia repleted and resolved. Stage II decubitus ulcers Patient positioning q.2h Wound care above management discussed with the patient and patient family in detail length they understand and in agreement with the plan, time spent 50 minute. Time Spent with Patient Time attestation: Total time managing care of this patient today ____ minutes. Discharge coordination time: Greater than 30 minutes Quality: Safe Use of Opioids Does Pt have an Active Cancer Diagnosis on the Problem List?: No Quality: Stroke Does the patient have a stroke diagnosis?: No Physical Exam Vital Signs: Vital Signs: Last Vital Signs Temp 98.6 F 04/01/23 07:20 Pulse 93 04/01/23 07:20 Resp 16 04/01/23 07:20 BP 133/69 04/01/23 07:20 Pulse Ox 99 04/01/23 07:20 O2 Del Method Nasal Cannula 04/01/23 07:20 O2 Flow Rate 2 04/01/23 07:20 BMI result Body Mass Index 21.3 Appearance: Alert.? Oriented X3.? sob improving cvs: rrr, [id number] , no murmur res: clear to auscultation ,no rhonchii or wheezing abd: no rebound or guarding ,nt, bs present. ext pulses present , no cyanosis . neuro: axo3 , nonfocal. DS: Data Data Completed and Pending Labs on day of discharge: Laboratory Results - last 24 hr 03/31/23 04/01/23 07:02 07:12 Potassium 4.0 D Creatinine 0.52 Estim Creat Clear Calc 76.2 Estimated GFR > 60 Magnesium 2.2 Preliminary micro results at discharge 03/29/23 10:09 Blood Culture - Preliminary Blood - Venous No growth after 48 hours. Imaging Chest x-ray: Radiologist's impression: ITS Impressions Chest X-Ray 03/29/23 10:37 IMPRESSION: 1. Bilateral airspace opacities, left greater than right, nonspecific. Bilateral pneumonia and asymmetric pulmonary edema are within the differential diagnosis. Follow-up chest x-ray is recommended to confirm clearing. 2. Prominent soft tissue in the aorticopulmonary window suspicious for adenopathy. Both this finding and the pulmonary parenchymal findings would be better assessed by thoracic CT (with contrast) as clinically warranted. Cervical Spine CT 03/29/23 11:56 IMPRESSION: No acute intracranial process seen. Mild straightening of cervical lordosis likely spasm. No visible acute fracture, dislocation or subluxation seen. Mild degenerative changes C1-C2 disc level. Head CT 03/29/23 11:56 IMPRESSION: No acute intracranial process seen. Mild straightening of cervical lordosis likely spasm. No visible acute fracture, dislocation or subluxation seen. Mild degenerative changes C1-C2 disc level. Discharge Plan Discharge Anticipated Discharge Date/Time: 04/01/23 11:03 Patient Disposition: Xfer Acute Care Hospital Discharge Diagnosis: chf ,nstemi,covid,uti Referrals: Gloria Hill MD [Primary Care Provider] - 1 Week Discharge Medications: New atorvastatin 40 mg Tablet 40 mg PO BEDTIME Qty: 30 0RF aspirin 81 mg Tablet,Delayed Release (Dr/Ec) 81 mg PO DAILY Qty: 1 0RF potassium chloride 20 mEq Tablet,Er Particles/Crystals 20 meq PO BID Qty: 1 0RF benzonatate 100 mg Capsule 100 mg PO TID PRN (Reason: Cough) Qty: 1 0RF furosemide 20 mg Tablet 20 mg PO BID@0900,1800 Qty: 1 0RF Protocol: Hold for SBP< HOLD for SBP < : 90 dexamethasone sodium phosphate 4 mg/mL Solution 6 mg IVPUSH DAILY Qty: 1 0RF albuterol sulfate [Ventolin HFA] 90 mcg/actuation Hfa Aerosol Inhaler 2 puff inhalation RQ4H PRN (Reason: Shortness Of Breath/Wheezing) Qty: 1 0RF cefuroxime axetil 500 mg tablet 500 mg PO BID Qty: 8 0RF metoprolol tartrate 25 mg tablet 12.5 mg PO BID Qty: 1 0RF Continued methotrexate sodium 25 mg/mL solution 20 mg subcut WE leflunomide 20 mg tablet 20 mg PO DAILY tramadol 50 mg tablet 100 mg PO BID PRN (Reason: pain) calcium carbonate 600 mg calcium (1,500 mg) tablet 600 mg PO DAILY omeprazole 20 mg capsule,delayed release(DR/EC) 20 mg PO DAILY folic acid 1 mg tablet 1 mg PO DAILY hydroxychloroquine 200 mg tablet 200 mg PO DAILY loratadine 10 mg tablet 10 mg PO DAILY buspirone 15 mg tablet 15 mg PO BID Discharge Orders: Discharge Order (Routine); Ordered 04/01/23 Ordered By: Monie Bello Diet: Advance to usual diet Activity on Discharge: As tolerated Stand Alone Forms: Patient Portal Discharge page Care Plan Goals: Acute hypoxic respiratory failure in the setting COVID infection, new onset CHF, NSTEMI: Patient was started on dexamethasone ,iv diuretics respectively for COVID and chf , shortness of breath seems to be improving. In addition patient has NSTEMI,intermittent chest pain, elevated troponin: Started on aspirin, statin, Lovenox, low dose metoprolol-patient still keep having symptoms intermittent: Discussed with Cardiology patient-need to go to [facility] for further cardiac workup and intervention. Patient also has UTI: Symptoms seems to be improved, will switch to p.o. antibiotics -ceftin 500 mg bid for 4 days. Hypokalemia repleted and resolved. above management discussed with the patient and patient family in detail length they understand and in agreement with the plan, time spent 50 minute. Health Concerns: As above. Plan of Treatment: As above. Assessment: As above .
[2023-04-01] MEDS: cefuroxime axetiL 500 MG TABLET PO (13:02)
[2023-04-01] MEDS: Metoprolol Tartrate 12.5 MG HALFTAB PO (13:02)
[2023-04-01] MEDS: Enoxaparin Sodium 60 MG/0.6 ML SYRINGE 50 MG SUBCUT (13:02)
--- NOTE | 2023-04-01 13:03 | MHC.CM.PN ---
PER NSG PT WILL BE TRANSFERRED TO [facility].
== END 2023-04-01 14:31 | disposition short-term general hospital (02) | DRG 177 ==
LOC: HO.ED 12:56 → HO.EDOVER 15:47 → HO.IMC 16:49
PROVIDERS: Internal Medicine; Physician Assistant Medical; Admitting Provider Student in an Organized Health Care Education/Training Program; Emergency Provider Emergency Medicine Emergency Medical Services; PCP Internal Medicine; Visit Provider Internal Medicine
DX: U07.1 COVID-19 (principal); I21.A1 Myocardial infarction type 2; J96.01 Acute respiratory failure with hypoxia; J18.9 Pneumonia, unspecified organism; R64 Cachexia; N39.0 Urinary tract infection, site not specified; E87.6 Hypokalemia; L89.92 Pressure ulcer of unspecified site, stage 2; K21.9 Gastro-esophageal reflux disease without esophagitis; M06.9 Rheumatoid arthritis, unspecified; Z79.631 Long term (current) use of antimetabolite agent; Z68.21 Body mass index [BMI] 21.0-21.9, adult; Z79.82 Long term (current) use of aspirin; Z79.899 Other long term (current) drug therapy
CPT/HCPCS: 0241U; 36415; 70450; 71046; 72125; 80048; 80053; 80202; 81001; 82550; 82565; 82803; 83605; 83735; 83880; 84132; 84145; 84295; 84484; 85025; 85027; 85610; 85730; 87040; 87086; 87205; 93005; 93306; 94640; 99285; J0696; J1100; J1650; J1940; J3371; P9047; Q9957

== ENCOUNTER 2023-03-29 15:32 | Outpatient (BNV) | payer OTHER, SELFPAY | END 2023-03-30 07:00 | PROVIDERS: Admitting Provider Student in an Organized Health Care Education/Training Program; Emergency Provider Emergency Medicine Emergency Medical Services; PCP Internal Medicine; Visit Provider Internal Medicine | DX: I36.1 Nonrheumatic tricuspid (valve) insufficiency (principal); I50.9 Heart failure, unspecified | CPT/HCPCS: 93306 ==

== ENCOUNTER → 2023-03-29 15:32 | Outpatient (BNV) | payer MEDICARE, SELFPAY | PROVIDERS: Admitting Provider Student in an Organized Health Care Education/Training Program; Emergency Provider Emergency Medicine Emergency Medical Services; PCP Internal Medicine; Visit Provider Student in an Organized Health Care Education/Training Program | DX: I21.4 Non-ST elevation (NSTEMI) myocardial infarction (principal); U07.1 COVID-19 | CPT/HCPCS: 99223; 99232; 99233; 99239 ==

== ENCOUNTER → 2023-03-29 15:32 | Outpatient (BNV) | payer OTHER, SELFPAY | PROVIDERS: Admitting Provider Student in an Organized Health Care Education/Training Program; Emergency Provider Emergency Medicine Emergency Medical Services; PCP Internal Medicine; Visit Provider Internal Medicine | DX: U07.1 COVID-19 (principal); J18.9 Pneumonia, unspecified organism | CPT/HCPCS: 99222 ==

== ENCOUNTER → 2023-03-29 15:32 | Outpatient (BNV) | payer OTHER, SELFPAY | PROVIDERS: Admitting Provider Student in an Organized Health Care Education/Training Program; Emergency Provider Emergency Medicine Emergency Medical Services; PCP Internal Medicine; Visit Provider Internal Medicine | DX: I21.4 Non-ST elevation (NSTEMI) myocardial infarction (principal); U07.1 COVID-19 | CPT/HCPCS: 99223; 99233 ==

== ENCOUNTER 2023-09-26 12:13 | Emergency (ER) | payer MEDICARE, MEDICAID, SELFPAY ==
--- NOTE | ~2023-09-26 | CT_ITS ---
EXAMINATION: CT ABDOMEN AND PELVIS WITHOUT CONTRAST CLINICAL INFORMATION: Colovesicular fistula COMPARISON: Previous CT from earlier the same day TECHNIQUE: Multidetector volumetric imaging was performed from the superior aspect of the liver through the pubic symphysis following rectal contrast. Sagittal and coronal reformatted images were obtained on the technologist's workstation. This CT examination was performed using dose optimization techniques as appropriate, variously including the following: *Automated exposure control *Adjustment of mA and/or kV according to patient size (this includes techniques or standardized protocols for targeted exams where dose is matched to indication/reason for exam; i.e. extremities or head) *Use of iterative reconstruction technique DLP: 303 mGy-cm FINDINGS: LUNG BASES: Increased peripheral reticulation suggestive of interstitial lung disease. LIVER, GALLBLADDER, AND BILIARY TREE: The liver is normal in size, shape, and attenuation. No focal hepatic lesion or biliary ductal dilatation is present. The gallbladder is unremarkable with no evidence of radiopaque gallstones, gallbladder wall thickening, or obvious pericholecystic inflammatory changes. PANCREAS: Unremarkable. SPLEEN: Unremarkable. ADRENAL GLANDS: Unremarkable. KIDNEYS AND URETERS: The kidneys are normal in size, shape, and attenuation. No hydronephrosis, hydroureter, or calculi seen. Left renal peripelvic cysts. Excreted contrast in the bilateral renal collecting systems. No hydronephrosis. No perinephric stranding. BLADDER: Excreted contrast in the bladder. GASTROINTESTINAL TRACT: Severe diverticular disease of the distal colon. Constipation. No evidence of: Vaginal fistula. Normal small bowel. Appendix not seen.. ABDOMINAL WALL: No significant hernia is appreciated. LYMPH NODES: Normal. VASCULAR: Unremarkable. PELVIC VISCERA: There is a small amount of air in the vagina. No oral contrast is seen to suggest colovesicular fistula. Uterus and adnexa are unremarkable. OSSEOUS STRUCTURES: Scoliosis and degenerative changes of the spine. CT/CT abdomen pelvis wo IV con IMPRESSION: No colovaginal fistula is seen. Severe diverticular disease of the distal colon and constipation. Fleischner guidelines were followed.
--- NOTE | ~2023-09-26 | CT_ITS ---
EXAMINATION: CT ABDOMEN AND PELVIS WITH CONTRAST CLINICAL INFORMATION: Colovaginal fistula COMPARISON: None available. TECHNIQUE: Multidetector volumetric images were obtained from the superior aspect of the liver through the pubic symphysis following administration 85 mL of Omnipaque 350 intravenous contrast. Sagittal and coronal reformatted images were obtained on the technologist's workstation. Oral contrast: Yes This CT examination was performed using dose optimization techniques as appropriate, variously including the following: *Automated exposure control *Adjustment of mA and/or kV according to patient size (this includes techniques or standardized protocols for targeted exams where dose is matched to indication/reason for exam; i.e. extremities or head) *Use of iterative reconstruction technique DLP: 451 mGy-cm FINDINGS: LUNG BASES: Increased peripheral reticular markings at the lung bases questionable for interstitial lung disease. LIVER, GALLBLADDER, AND BILIARY TREE: The liver is normal in size, shape, and attenuation. No focal hepatic lesion or biliary ductal dilatation is present. The gallbladder is unremarkable with no evidence of radiopaque gallstones, gallbladder wall thickening, or obvious pericholecystic inflammatory changes. PANCREAS: Unremarkable. SPLEEN: Unremarkable. ADRENAL GLANDS: Unremarkable. KIDNEYS AND URETERS: The kidneys are normal in size, shape, and attenuation. There are left renal peripelvic cysts. No imaging follow-up recommended. There may also be mild left hydronephrosis. The left proximal ureter is minimally dilated. No stone is seen. BLADDER: Unremarkable. GASTROINTESTINAL TRACT: Severe diverticulosis of the distal colon. There is constipation. The sigmoid colon is distended measuring 8 cm in diameter. . No colovaginal fistula appreciated. ABDOMINAL WALL: No significant hernia is appreciated. LYMPH NODES: Normal. VASCULAR: Unremarkable. PELVIC VISCERA: Uterus and adnexa appear unremarkable. There is a very small amount of air in the vagina. No: Vaginal fistula seen. OSSEOUS STRUCTURES: Scoliosis and degenerative changes of the spine. CT/CT abdomen pelvis w IV con IMPRESSION: Severe diverticulosis of the distal colon. Constipation. There is air in the vagina however no colovaginal fistula seen. Follow-up exam with rectal contrast would be more sensitive for detection of colovaginal fistula. Left renal peripelvic cysts and probable mild left hydronephrosis. Fleischner guidelines were followed.
--- NOTE | 2023-09-26 12:17 | ED_ITS ---
HPI - General Adult General Chief complaint: Urogenital-Female Stated complaint: FECAL MATTER FROM VAGINA FROM [facility] PER EMS Time Seen by Provider: 09/26/23 12:37 Source: patient and EMS Mode of arrival: EMS Limitations: no limitations History of Present Illness HPI narrative: 73 year old female hx of NSTEMI, UTIs, pneumonia, chf, htn presents from [facility] with concerns that patient has stool coming out of her vagina X 1 day. No a/c pain or discomfort. Recently had a UTI which she was treated for. This has never happened ot her before. Denies cp, sob, nausea, vomiting, headache, vision changes, dizziness. Related Data Home Medications ?Medication ?Instructions ?Recorded ?Confirmed buspirone 15 mg tablet 15 mg PO BID 03/29/23 03/29/23 calcium carbonate 600 mg calcium 600 mg PO DAILY 03/29/23 03/29/23 (1,500 mg) tablet folic acid 1 mg tablet 1 mg PO DAILY 03/29/23 03/29/23 hydroxychloroquine 200 mg tablet 200 mg PO DAILY 03/29/23 03/29/23 leflunomide 20 mg tablet 20 mg PO DAILY 03/29/23 03/29/23 loratadine 10 mg tablet 10 mg PO DAILY 03/29/23 03/29/23 methotrexate sodium 25 mg/mL 20 mg subcut WE 03/29/23 03/29/23 injection solution omeprazole 20 mg capsule,delayed 20 mg PO DAILY 03/29/23 03/29/23 release tramadol 50 mg tablet 100 mg PO BID PRN pain 03/29/23 03/29/23 Previous Rx's ?Medication ?Instructions ?Recorded albuterol sulfate 90 mcg/actuation 2 puff inhalation RQ4H PRN 04/01/23 aerosol inhaler (Ventolin HFA) Shortness Of Breath/Wheezing #1 g aspirin 81 mg tablet,delayed 81 mg PO DAILY #1 tab 04/01/23 release atorvastatin 40 mg tablet 40 mg PO BEDTIME #30 tabs 04/01/23 benzonatate 100 mg capsule 100 mg PO TID PRN Cough #1 cap 04/01/23 cefuroxime axetil 500 mg tablet 500 mg PO BID #8 tabs 04/01/23 dexamethasone sodium phosphate 4 6 mg (1.5 mL) IVPUSH DAILY #1 mL 04/01/23 mg/mL injection solution furosemide 20 mg tablet 20 mg PO BID@0900,1800 #1 tab 04/01/23 metoprolol tartrate 25 mg tablet 12.5 mg (1/2 x 25 mg) PO BID #1 tab 04/01/23 potassium chloride 20 mEq 20 meq PO BID #1 tab 04/01/23 tablet,extended release(part/cryst) cefuroxime axetil 250 mg tablet 250 mg PO BID #20 tabs 09/26/23 loperamide 2 mg capsule (Imodium 2 mg PO Q4H PRN loose stool #20 09/26/23 A-D) caps Allergies Allergy/AdvReac Type Severity Reaction Status Date / Time No Known Allergies Allergy Verified 09/26/23 12:56 [No Known Allergies*] Review of Systems 2 Review of Systems: Yes all other systems are reviewed and are negative PMFSH Past Medical History Attestation statement: The following information was validated with the patient. Source: old records reviewed and nursing notes reviewed Social History Social History Household Members: Family Housing: House Do you presently have visiting nurse or other home services: Yes Patient Tobacco Use Status: Never used Tobacco Smoked in Last 30 Days: No Use of substances other than those prescribed or required for medical reasons: No Advance Directives: Yes Advance Directives on File: Yes Advance Directives Date on File: 04/02/23 service: No Physical Exam ED Vital Signs: Vital Signs - 24 hr 09/26/23 12:54 09/26/23 13:59 09/26/23 18:01 Temperature 97.6 F 97.6 F 97.6 F Pulse Rate 78 94 90 Respiratory Rate 16 14 20 Blood Pressure 126/65 120/67 135/70 Pulse Oximetry 98 97 96 Oxygen Delivery Method Room Air Room Air Room Air BMI result Body Mass Index 21.9 vss Appearance: Alert.? Oriented X3.? No acute distress.? Head: Normocephalic, atraumatic, no step-offs or deformities Eyes: Pupils equal, round and reactive to light.? CVS: Normal heart rate and rhythm.? Pulses normal.? Respiratory: No respiratory distress.? Breath sounds normal.? Abdomen: Soft and nontender.? Skin: Skin warm and dry.? Normal skin color.? Normal skin turgor.? Extremities: No lower extremity edema.? No calf ttp. 5/5 strength to bilateral upper and lower extremities Back: No midline tenderness, no C-spine tenderness, full range of motion, no CVA tenderness bilaterally Neuro: Oriented X 3.? No motor deficit.? No sensory deficit. CN 2-12 intact Course Reevaluation(s) Reevaluation #1: CBC unremarkable. Normocytic anemia at baseline. No acute findings requiring intervention. Albumin 3.4 lipase normal. Patient with positive nitrates and 4+ bacteria Ceftin ordered. CT scan pending Time: 16:02 Reevaluation #2: Sign out to Nahid Patient received in sign-out at change of shift pending CT scan of the abdomen pelvis. This showed no evidence of colovesicular fistula. I discussed with General surgery, Dr. Keyes who recommends repeating scan with rectal contrast. This was done on still shows no evidence of colovesicular fistula. On physical exam, the patient has no external anal fissures that were described by [facility] staff. The patient has had 4 loose stools in the emergency department. I suspect any stool in the vagina is more likely from for hydrate and sitting in stool rather than anatomic abnormality. I discussed this with [facility] staff. The patient has been falling with GI for chronic diarrhea for the last few months, she has been tested for C diff by her PCP per [facility] staff. This was negative Time: 19:14 Medications Administered Discontinued Medications Generic Name Dose Route Start Last Admin Trade Name Freq PRN Reason Stop Dose Admin Diatrizoate Meglum/Diatrizoate Sod 30 ml 09/26/23 17:50 09/26/23 17:51 Diatrizoate Meglumine, Sodium 30 Ml Solution PO 09/26/23 17:51 30 ml ONCE ONE Administration Ceftriaxone Sodium 1 gm/ 50 mls @ 100 mls/hr 09/26/23 16:02 09/26/23 17:40 Sodium Chloride IV 09/26/23 16:31 Infused ONCE ONE Infusion Iohexol 100 ml 09/26/23 14:43 09/26/23 14:45 Iohexol 350 Mg/Ml 100 Ml Infus..Btl IV 09/26/23 14:44 85 ml ONCE ONE Administration Loperamide HCl 4 mg 09/26/23 18:49 09/26/23 19:06 Loperamide Hcl 2 Mg Capsule PO 09/26/23 18:50 4 mg ONCE ONE Administration Medical Decision Making Medical Decision Making [facility] Narrative: 73 yo f presents w/ stool coming out of vaginal canal PE benign will hold on sensative exam until CT report is back Concerns for fistula vs UTI vs abnormal colored urine. Unlikely metabolic derangments, pylo, obstructing stone. Plan- labs, urine, imaging Differential Diagnosis Differential Diagnoses: The differential diagnosis associated with the presentation includes Concerns for fistula vs UTI vs abnormal colored urine. Unlikely metabolic derangments, pylo, obstructing stone. Admission/Observation Consideration of admission/observation: Escalation of care including admission/observation considered Lab Data [facility] Lab Attestation statement: I reviewed the patient's lab results. 09/26/23 14:18 09/26/23 13:25 Labs: Lab Results 09/26/23 09/26/23 09/26/23 Range/Units 13:25 14:15 14:18 WBC 9.0 (4.8-10.8) X10*3/uL RBC 3.95 L (4.20-5.50) X10*6/uL Hgb 11.2 L (12.0-16.0) g/dl Hct 35.1 L (37.0-47.0) % MCV 88.9 (80.0-98.0) fL MCH 28.4 (27.0-33.0) pg MCHC 31.9 (31.0-35.0) g/dl RDW 15.9 (11.0-16.0) % Plt Count 276 (160-400) X10*3/uL MPV 9.4 (9.4-12.3) fL Immature Gran % (Auto) 1.0 H (0.0-0.4) % Neut % (Auto) 57.2 (45-73) % Lymph % (Auto) 24.9 (20-40) % Cascade % (Auto) 9.5 (2-11) % Eos % (Auto) 7.0 H (0-4) % Baso % (Auto) 0.4 (0-2) % Lymph # (Auto) 2.2 (1.2-4.9) X10*3/uL Cascade # (Auto) 0.9 (0.1-1.2) X10*3/uL Eos # (Auto) 0.6 H (0.0-0.4) X10*3/uL Baso # (Auto) 0.0 (0.0-0.2) X10*3/uL Abs Immat Gran (auto) 0.09 H (0.00-0.03) X10*3/uL Absolute Neuts (auto) 5.1 (2.0-8.3) x10*3/uL Absolute Nucleated RBC 0.000 (0.0-0.012) X10*3/uL Nucleated RBC % (auto) 0.0 (0.0-0.2) /100WBC Sodium 136 (135-145) mmol/L Potassium 4.1 (3.3-5.1) mmol/L Chloride 104 (96-108) mmol/L Carbon Dioxide 25 (22-29) mmol/L Anion Gap 11 L (12-20) BUN 15 (9-16) mg/dL Creatinine 0.49 L (0.5-1.4) mg/dL Estim Creat Clear Calc 72.3 Estimated GFR > 60 Random Glucose 68 (60-115) mg/dL Lactic Acid (0.5-2.0) mmol/L Calcium 9.1 (8.4-10.2) mg/dL Magnesium 2.0 (1.6-2.6) mg/dL Total Bilirubin 0.4 (0.0-1.0) mg/dL AST 23 (5-31) U/L ALT 14 (0-31) U/L Alkaline Phosphatase 87 (39-117) U/L B-Natriuretic Peptide 33 (<100) pg/mL Total Protein 6.6 (6.5-8.0) g/dL Albumin 3.4 L (3.5-5.0) g/dL Lipase < 4 L (8-78) U/L Urine Color Yellow Urine Appearance Cloudy Urine pH 6.0 (5.0-9.0) Ur Specific [place] 1.010 (1.005-1.025) Urine Protein Negative (Neg-Trace) mg/dL Urine Glucose (UA) Negative (Negative) mg/dL Urine Ketones Negative (Negative) mg/dL Urine Blood Negative (Negative) Urine Nitrite Positive H (Negative) Ur Leukocyte Esterase Small (1+) H (Negative) Urine RBC 0-2 (0-2) /HPF Urine WBC 6-10 (0-5) /HPF Ur Squamous Epith Cells 11-20 (0-2) /HPF Urine Bacteria 4+ (None Seen) Hyaline Casts 0-2 (0-2) /LPF 09/26/23 Range/Units 16:41 WBC (4.8-10.8) X10*3/uL RBC (4.20-5.50) X10*6/uL Hgb (12.0-16.0) g/dl Hct (37.0-47.0) % MCV (80.0-98.0) fL MCH (27.0-33.0) pg MCHC (31.0-35.0) g/dl RDW (11.0-16.0) % Plt Count (160-400) X10*3/uL MPV (9.4-12.3) fL Immature Gran % (Auto) (0.0-0.4) % Neut % (Auto) (45-73) % Lymph % (Auto) (20-40) % Cascade % (Auto) (2-11) % Eos % (Auto) (0-4) % Baso % (Auto) (0-2) % Lymph # (Auto) (1.2-4.9) X10*3/uL Cascade # (Auto) (0.1-1.2) X10*3/uL Eos # (Auto) (0.0-0.4) X10*3/uL Baso # (Auto) (0.0-0.2) X10*3/uL Abs Immat Gran (auto) (0.00-0.03) X10*3/uL Absolute Neuts (auto) (2.0-8.3) x10*3/uL Absolute Nucleated RBC (0.0-0.012) X10*3/uL Nucleated RBC % (auto) (0.0-0.2) /100WBC Sodium (135-145) mmol/L Potassium (3.3-5.1) mmol/L Chloride (96-108) mmol/L Carbon Dioxide (22-29) mmol/L Anion Gap (12-20) BUN (9-16) mg/dL Creatinine (0.5-1.4) mg/dL Estim Creat Clear Calc Estimated GFR Random Glucose (60-115) mg/dL Lactic Acid 1.2 (0.5-2.0) mmol/L Calcium (8.4-10.2) mg/dL Magnesium (1.6-2.6) mg/dL Total Bilirubin (0.0-1.0) mg/dL AST (5-31) U/L ALT (0-31) U/L Alkaline Phosphatase (39-117) U/L B-Natriuretic Peptide (<100) pg/mL Total Protein (6.5-8.0) g/dL Albumin (3.5-5.0) g/dL Lipase (8-78) U/L Urine Color Urine Appearance Urine pH (5.0-9.0) Ur Specific [place] (1.005-1.025) Urine Protein (Neg-Trace) mg/dL Urine Glucose (UA) (Negative) mg/dL Urine Ketones (Negative) mg/dL Urine Blood (Negative) Urine Nitrite (Negative) Ur Leukocyte Esterase (Negative) Urine RBC (0-2) /HPF Urine WBC (0-5) /HPF Ur Squamous Epith Cells (0-2) /HPF Urine Bacteria (None Seen) Hyaline Casts (0-2) /LPF Independent Interpretation I performed an independent interpretation of an: CT Scan Radiology Impression Discussion of test interpretation with radiology: I have reviewed the radiologist's reading. Critical Care Time Critical Care Time Critical Care Time: No Discharge Plan Discharge Clinical Impression: Acute diarrhea Patient Disposition: Home, Self-Care Instructions: Acute Diarrhea (ED) Additional Instructions: Workup in the ER today was reassuring. You had [address] scans that did not show any evidence of colovesicular fistula On exam there was no evidence of anal fissure Follow-up with your GI doctor regarding your diarrhea Take Ceftin twice daily for 10 days for UTI You may use Imodium as needed for loose stool Follow-up with your primary doctor as well Prescriptions: New cefuroxime axetil 250 mg tablet 250 mg PO BID Qty: 20 0RF loperamide [Imodium A-D] 2 mg capsule 2 mg PO Q4H PRN (Reason: loose stool) Qty: 20 0RF Rx Instructions: administer after each loose stool until symptoms controlled; do not exceed 8 mg per 24 hrs No Action methotrexate sodium 25 mg/mL solution 20 mg subcut WE leflunomide 20 mg tablet 20 mg PO DAILY tramadol 50 mg tablet 100 mg PO BID PRN (Reason: pain) calcium carbonate 600 mg calcium (1,500 mg) tablet 600 mg PO DAILY omeprazole 20 mg capsule,delayed release(DR/EC) 20 mg PO DAILY folic acid 1 mg tablet 1 mg PO DAILY hydroxychloroquine 200 mg tablet 200 mg PO DAILY loratadine 10 mg tablet 10 mg PO DAILY buspirone 15 mg tablet 15 mg PO BID atorvastatin 40 mg Tablet 40 mg PO BEDTIME Qty: 30 0RF aspirin 81 mg Tablet,Delayed Release (Dr/Ec) 81 mg PO DAILY Qty: 1 0RF potassium chloride 20 mEq Tablet,Er Particles/Crystals 20 meq PO BID Qty: 1 0RF benzonatate 100 mg Capsule 100 mg PO TID PRN (Reason: Cough) Qty: 1 0RF furosemide 20 mg Tablet 20 mg PO BID@0900,1800 Qty: 1 0RF Protocol: Hold for SBP< HOLD for SBP < : 90 dexamethasone sodium phosphate 4 mg/mL Solution 6 mg IVPUSH DAILY Qty: 1 0RF albuterol sulfate [Ventolin HFA] 90 mcg/actuation Hfa Aerosol Inhaler 2 puff inhalation RQ4H PRN (Reason: Shortness Of Breath/Wheezing) Qty: 1 0RF cefuroxime axetil 500 mg tablet 500 mg PO BID Qty: 8 0RF metoprolol tartrate 25 mg tablet 12.5 mg PO BID Qty: 1 0RF Print Language: Telugu
[2023-09-26 12:36] VITALS: BP 118/68; PULSE 88
[2023-09-26 12:54] VITALS: BP 126/65; PULSE 78; RESP 16; TEMP 36.4; O2SAT 98; BMI 21.9
[2023-09-26 13:52] LABS: B Type Natriuretic Peptide 33 pg/mL (<100)
[2023-09-26 13:57] LABS: Alanine Aminotransferase 14 U/L (0-31); Albumin Level 3.4 g/dL (3.5-5.0); Alkaline Phosphatase 87 U/L (39-117); Anion Gap 11 (12-20); Aspartate Amino Transferase 23 U/L (5-31); Bilirubin Total 0.4 mg/dL (0.0-1.0); Blood Urea Nitrogen 15 mg/dL (9-16); Calcium 9.1 mg/dL (8.4-10.2); Carbon Dioxide 25 mmol/L (22-29); Chloride 104 mmol/L (96-108); Creatinine Clr Calc Pharmacy 72.3; Estimated Glomerular Filt Rate > 60; Glucose Random 68 mg/dL (60-115); Lipase < 4 U/L (8-78); Potassium 4.1 mmol/L (3.3-5.1); Sodium 136 mmol/L (135-145); Total Protein 6.6 g/dL (6.5-8.0)
[2023-09-26 13:59] VITALS: BP 120/67; PULSE 94; RESP 14; TEMP 36.4; O2SAT 97
[2023-09-26 14:22] LABS: MANUAL DIFF FLAG NO
[2023-09-26 14:24] LABS: Basophils Percent Auto 0.4 % (0-2); Eosinophils Absolute Auto 0.6 X10*3/uL (0.0-0.4); Hematocrit 35.1 % (37.0-47.0); Hemoglobin 11.2 g/dl (12.0-16.0); Imm Gran Abs Auto 0.09 X10*3/uL (0.00-0.03); Lymphocytes Absolute Auto 2.2 X10*3/uL (1.2-4.9); Lymphocytes Percent Auto 24.9 % (20-40); Mean Corpuscular HGB Conc 31.9 g/dl (31.0-35.0); Mean Corpuscular Hemoglobin 28.4 pg (27.0-33.0); Mean Corpuscular Volume 88.9 fL (80.0-98.0); Mean Platelet Volume 9.4 fL (9.4-12.3); Monocytes Absolute Auto 0.9 X10*3/uL (0.1-1.2); Monocytes Percent Auto 9.5 % (2-11); Neutrophils Absolute Auto 5.1 x10*3/uL (2.0-8.3); Neutrophils Percent Auto 57.2 % (45-73); Platelet Count 276 X10*3/uL (160-400); Red Blood Count 3.95 X10*6/uL (4.20-5.50); Red Cell Distribution Width 15.9 % (11.0-16.0)
[2023-09-26 14:29] LABS: Appearance Urine Cloudy; Color Urine Yellow; Glucose Urine UA Negative (Negative); Leukocyte Esterase Urine Small (1+) (Negative); Nitrite Urine Positive (Negative); UMIC TRIGGER UACC YES; Urine Blood Negative (Negative); Urine Ketones Negative (Negative); Urine Protein Negative (Neg-Trace)
[2023-09-26 14:41] LABS: Bacteria Urine 4+ (None Seen); Hyaline Casts Urine 0-2 /LPF (0-2); RBC Urine 0-2 /HPF (0-2); UACC Culture Trigger YES
[2023-09-26] MEDS: iohexoL 350 MG/ML 100 ML INFUS..BTL IV (14:45)
[2023-09-26] MEDS: cefTRIAXone sodium 1 GM in 0.9 % Sodium Chloride 50 ML IV (16:56)
[2023-09-26 17:00] LABS: Lactic Acid 1.2 mmol/L (0.5-2.0)
[2023-09-26] MEDS: Diatrizoate Meglumine, Sodium 30 ML SOLUTION PO (17:51)
[2023-09-26 18:01] VITALS: BP 135/70; PULSE 90; RESP 20; TEMP 36.4; O2SAT 96
[2023-09-26] MEDS: Loperamide HCl 2 MG CAPSULE 4 MG PO (19:06)
--- NOTE | 2023-09-26 19:07 | PC.NURSE ---
pt medicated according to michael awaiting ambulance ride back to [facility]
[2023-09-26 19:25] VITALS: BP 135/70; PULSE 90; RESP 20; TEMP 36.4; O2SAT 96
== END 2023-09-26 19:27 | disposition home or self-care (01) ==
PROVIDERS: Physician Assistant; Emergency Provider Emergency Medicine; PCP Internal Medicine
DX: R19.7 Diarrhea, unspecified (principal); R06.02 Shortness of breath; R10.2 Pelvic and perineal pain; I10 Essential (primary) hypertension; Z79.899 Other long term (current) drug therapy
CPT/HCPCS: 36415; 74176; 74177; 80053; 81001; 83605; 83690; 83735; 83880; 85025; 87040; 87086; 96365; 99284; J0696; Q9967

== ENCOUNTER 2024-12-06 19:54 | Emergency (ER) | payer MEDICARE, MEDICAID, SELFPAY ==
--- NOTE | ~2024-12-06 | XR_ITS ---
CLINICAL HISTORY: atraumatic pain 3 view left ankle Comparison: None provided Findings: No acute fractures. Ankle mortise intact. Moderately severe degenerative changes of the ankle. No radiopaque foreign body. Arterial vascular calcifications present. IMPRESSION: 1. No acute findings. This document has been electronically signed by: Connor Garvin MD on 12/06/2024 20:59:52
--- NOTE | 2024-12-06 20:11 | ED.GENADULT ---
HPI - General Adult General Chief complaint: Extremity Problem Stated complaint: left swollen ankle Time Seen by Provider: 12/06/24 21:17 Source: patient Mode of arrival: wheelchair Limitations: no limitations History of Present Illness ED Provider: HPI narrative: Patient comes from group with a history of rheumatoid arthritis coronary artery disease CHF depression wheelchair-bound complaining of redness of the left ankle for last 2 days patient does not remember any injury no significant pain no fever no chills no any other joint involvement Related Data Home Medications ?Medication ?Instructions ?Recorded ?Confirmed buspirone 15 mg tablet 15 mg PO BID 03/29/23 03/29/23 calcium carbonate 600 mg PO DAILY 03/29/23 03/29/23 folic acid 1 mg tablet 1 mg PO DAILY 03/29/23 03/29/23 hydroxychloroquine 200 mg tablet 200 mg PO DAILY 03/29/23 03/29/23 leflunomide 20 mg tablet 20 mg PO DAILY 03/29/23 03/29/23 loratadine 10 mg tablet 10 mg PO DAILY 03/29/23 03/29/23 methotrexate sodium 25 mg/mL 20 mg subcut WE 03/29/23 03/29/23 injection solution omeprazole 20 mg capsule,delayed 20 mg PO DAILY 03/29/23 03/29/23 release tramadol 50 mg tablet 100 mg PO BID PRN pain 03/29/23 03/29/23 Previous Rx's ?Medication ?Instructions ?Recorded albuterol sulfate 90 mcg/actuation 2 puff inhalation RQ4H PRN 04/01/23 aerosol inhaler (Ventolin HFA) Shortness Of Breath/Wheezing #1 g aspirin 81 mg tablet,delayed 81 mg PO DAILY #1 tab 04/01/23 release atorvastatin 40 mg tablet 40 mg PO BEDTIME #30 tabs 04/01/23 benzonatate 100 mg capsule 100 mg PO TID PRN Cough #1 cap 04/01/23 cefuroxime axetil 500 mg tablet 500 mg PO BID #8 tabs 04/01/23 dexamethasone sodium phosphate 4 6 mg (1.5 mL) IVPUSH DAILY #1 mL 04/01/23 mg/mL injection solution furosemide 20 mg tablet 20 mg PO BID@0900,1800 #1 tab 04/01/23 metoprolol tartrate 25 mg tablet 12.5 mg (1/2 x 25 mg) PO BID #1 tab 04/01/23 potassium chloride 20 mEq 20 meq PO BID #1 tab 04/01/23 tablet,extended release(part/cryst) cefuroxime axetil 250 mg tablet 250 mg PO BID #20 tabs 09/26/23 loperamide 2 mg capsule (Imodium 2 mg PO Q4H PRN loose stool #20 09/26/23 A-D) caps cephalexin 500 mg capsule 500 mg PO QID 10 days #40 caps 12/06/24 doxycycline hyclate 100 mg tablet 100 mg PO BID #20 tabs 12/06/24 Allergies Allergy/AdvReac Type Severity Reaction Status Date / Time No Known Allergies (No Known Allergy Verified 12/06/24 20:13 Allergies*) Review of Systems Review of Systems: Yes all other systems are reviewed and are negative [facility] Social History Social History Household Members: Family Housing: House Do you presently have visiting nurse or other home services: Yes Patient Tobacco Use Status: Never used Tobacco Smoked in Last 30 Days: No Use of substances other than those prescribed or required for medical reasons: No Advance Directives: Yes Advance Directives on File: Yes Advance Directives Date on File: 04/02/23 service: No Physical Exam ED Vital Signs: Vital Signs - 24 hr 12/06/24 20:12 12/06/24 21:17 Temperature 98.7 F 98.7 F Pulse Rate 120 H 99 Respiratory Rate 18 18 Blood Pressure 126/60 126/56 L Pulse Oximetry 97 97 Oxygen Delivery Method Room Air Room Air BMI result Body Mass Index 21.9 Appearance: Alert. Oriented X3. No acute distress. Eyes: no pallor or icterus ENT: Pharynx normal Oral Mucosa moist tympanic membrane intact no erythema, Neck: Normal inspection. Neck supple. CVS: Normal heart rate and rhythm. Pulses normal. Respiratory: No respiratory distress. Equal air entry bilateral, no wheezing/rales/rhonchi Abd: soft, not tender Skin: Skin warm and dry. Normal skin color. Normal skin turgor. Extremities: No lower extremity edema, no calf tenderness left ankle with more of the malleolus no significant joint tenderness Neuro: Oriented X 3. Course Course Course Narrative: Kneia Pascucci REMOTELY [employer]ED [employer]LE [employer]ER This is a rapid medical exam. Deferred additional HPI, ROS, PE to primary provider. 74 yo female from a fpc with PMH CHF, CAD, RA on MTX and plaquenil here with swelling to left ankle since 12/04. No known injury or trauma. Patient has some swelling noted to the ankle with warmth and erythema. FROM. Doubt septic joint. Consider RA flare. Will check x-ray. 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 VSS Medical Decision Making Medical Decision Making [facility] Narrative: Patient clinically with cellulitis of the left etiology not will prescribe doxycycline and cephalexin vitals are stable. Skin is intact x-ray negative for fracture Independent Interpretation I performed an independent interpretation of an: Plain X-Ray Radiology Impression Discussion of test interpretation with radiology: I have reviewed the radiologist's reading. Radiologist Impression: No acute Discharge Plan Discharge Clinical Impression: Cellulitis Patient Disposition: Home, Self-Care Instructions: Cellulitis (ED) Additional Instructions: Take antibiotic as prescribed Keep left leg elevated Report to PCP/ED if worsening of the redness pain Your x-ray of the left ankle is negative for fracture Prescriptions: New cephalexin 500 mg capsule 500 mg PO QID 10 Days Qty: 40 0RF doxycycline hyclate 100 mg tablet 100 mg PO BID Qty: 20 0RF No Action methotrexate sodium 25 mg/mL solution 20 mg subcut WE leflunomide 20 mg tablet 20 mg PO DAILY tramadol 50 mg tablet 100 mg PO BID PRN (Reason: pain) calcium carbonate 600 mg calcium (1,500 mg) tablet 600 mg PO DAILY omeprazole 20 mg capsule,delayed release(DR/EC) 20 mg PO DAILY folic acid 1 mg tablet 1 mg PO DAILY hydroxychloroquine 200 mg tablet 200 mg PO DAILY loratadine 10 mg tablet 10 mg PO DAILY buspirone 15 mg tablet 15 mg PO BID atorvastatin 40 mg Tablet 40 mg PO BEDTIME Qty: 30 0RF aspirin 81 mg Tablet,Delayed Release (Dr/Ec) 81 mg PO DAILY Qty: 1 0RF potassium chloride 20 mEq Tablet,Er Particles/Crystals 20 meq PO BID Qty: 1 0RF benzonatate 100 mg Capsule 100 mg PO TID PRN (Reason: Cough) Qty: 1 0RF furosemide 20 mg Tablet 20 mg PO BID@0900,1800 Qty: 1 0RF Protocol: Hold for SBP< HOLD for SBP < : 90 dexamethasone sodium phosphate 4 mg/mL Solution 6 mg IVPUSH DAILY Qty: 1 0RF albuterol sulfate [Ventolin HFA] 90 mcg/actuation Hfa Aerosol Inhaler 2 puff inhalation RQ4H PRN (Reason: Shortness Of Breath/Wheezing) Qty: 1 0RF cefuroxime axetil 500 mg tablet 500 mg PO BID Qty: 8 0RF metoprolol tartrate 25 mg tablet 12.5 mg PO BID Qty: 1 0RF cefuroxime axetil 250 mg tablet 250 mg PO BID Qty: 20 0RF loperamide [Imodium A-D] 2 mg capsule 2 mg PO Q4H PRN (Reason: loose stool) Qty: 20 0RF Rx Instructions: administer after each loose stool until symptoms controlled; do not exceed 8 mg per 24 hrs Print Language: Qatari
[2024-12-06 20:12] VITALS: BP 126/60; PULSE 120; RESP 18; TEMP 37.1; O2SAT 97; BMI 21.9
[2024-12-06 21:17] VITALS: BP 126/56; PULSE 99; RESP 18; TEMP 37.1; O2SAT 97
--- OUTSIDE RECORDS SUMMARY | 2024-12-06 21:22 | XMS_ITS | Clinical Summary ---
Author Organization [facility] [address] [place] [address] Address [address], [place] Phone Care Team Providers Care Chemist Enzymes Name Role Phone Vidya Denis MD Primary Care Prov ider Allergies No known active allergies Medications saccharomyces boulardii (FLORASTOR) 250 mg capsule Take 1 capsule (250 mg total) by mouth 2 (two) times a day. 180 capsule 1 4 Active metoprolol tartrate (LOPRESSOR) 25 mg tablet Take 0.5 tablets (12.5 mg total) by mouth 2 (two) times a day. 90 tablet 1 4 Active colestipoL (COLESTID) 1 gram tablet 4 Active hydroxychloroqu ine (PLAQUENIL) 200 mg tablet Take 200 mg by mouth daily. 2 tab qam Active leflunomide (ARAVA) 20 mg tablet 4 Active methotrexate sodium/PF (methotrexate PF) 25 mg/mL injection 4 Active sulfaSALAzine (AZULFIDINE EN-TABS) 500 mg EC tablet Take 2 tablets (1,000 mg total) by mouth 2 (two) times a day. 4 Active calcium carbonate 1,500 mg (600 mg elemental calcium) tablet Take 1 tablet (1,500 mg total) by mouth 1 (one) time each day in the morning. 90 tablet 1 4 Active dextromethorpha n-guaiFENesin (Tussin DM) 10-100 mg/5 mL syrup Take 10 mL by mouth every 6 (six) hours if needed for cough. 400 mL 5 Active acetaminophen (TYLENOL 8 HOUR) 650 mg 8 hr tablet Take 1 tablet (650 mg total) by mouth 1 (one) time each day in the morning. 90 tablet 5 Active folic acid (FOLVITE) 1 mg tablet TAKE 1 TABLET BY MOUTH EVERY MORNING 30 tablet 3 5 Active loratadine (CLARITIN) 10 mg tablet TAKE 1 TABLET BY MOUTH EVERY MORNING 30 tablet 3 5 Active omeprazole (PriLOSEC) [address] capsule TAKE 1 CAPSULE BY MOUTH EVERY MORNING 30 capsule 1 5 Active metroNIDAZOLE (METROGEL) 0.75 % gel Apply twice daily to rosacea for 8 weeks 45 g 2 5 06/06/20 25 Active Bacillus coagulans-inuli n (Probiotic Formula, inulin,) 1 billion-250 cell-mg capsule TAKE 1 CAPSULE BY MOUTH 2 TIMES DAILY. 60 capsule 1 5 Active busPIRone (BUSPAR) 15 mg tablet Take 1 tablet (15 mg total) by mouth 2 (two) times a day. 180 tablet 5 Active melatonin 3 mg tablet Take 1 tablet (3 mg total) by mouth at bedtime. at bedtime. 30 tablet 3 5 Active multivitamin-mi m-aezz-MB-vit K 18 mg iron-400 mcg-25 mcg tablet Take 1 tablet by mouth 1 (one) time each day in the morning. 30 each 11 5 Active dicyclomine (BENTYL) 10 mg capsule Take 1 capsule (10 mg total) by mouth 4 (four) times a day if needed (abd pain). 120 capsule 5 Active dicyclomine (BENTYL) 10 mg capsule TAKE 1 CAPSULE BY MOUTH FOUR TIMES A DAY 120 capsule 2 5 11/18/19 25 Discontinu ed(Reorder ) Active Problems Problem Noted Date Diagnosed Date Mixed stress and urge urinary incontinence 11/05 Osteopenia 08/13/2023 Anxiety 03/13/2019 Assessment & Plan (07/21/2024 3:56 PM EST): Anxiety and depression are well-controlled. No behavioral disorganization. Continue buspirone. Iron deficiency anemia 12/06/2018 DJD (degenerative joint disease) of knee 016 Overview (05/13/2024): Secondary DJD per xrays 07/2015 (scanned) Vitamin D insufficiency 01/29/2014 Hyperlipidemia with target LDL less than 160 Overview (05/13/2024): IMO update Assessment & Plan (07/21/2024 3:56 PM EST): Patient not on medications. Last lipid panel within normal limits. Patient is recommended to follow a low-fat diet. Will continue to monitor. Will recheck a CMP, lipid panel with next visit. Heartburn 02/22/2012 Intertrigo 02/22/2012 Pure hypercholesterolemia 04/23/2009 Intellectual disability 04/22/2009 Assessment & Plan (07/21/2024 3:56 PM EST): Level of performance at baseline. Rheumatoid arthritis (CMS/HCC V24, CMS/HCC V28) 04/22/2009 Overview (05/13/2024): Sees Dr marvin Assessment & Plan (07/21/2024 3:56 PM EST): Patient follows regularly with rheumatology. Currently on leflunomide, hydroxychloroquine, methotrexate, folic acid, sulfasalazine, good tolerance. No exacerbations. Will continue same medications. Encouraged to keep the appointments with the specialist. Encounters Date Type Department Care Team Description 11/05/2024 9:28 AM EDT - 11/05/2024 11:59 PM EDT Hospital Encounter [facility] [address] [phone] Chronic cough; Cerumen debris on tympanic membrane of both ears; Rosacea Discharge Disposition: Home or Self Care 11/05/2024 9:00 AM EDT Office Visit Adult Medicine [address] [phone] Ching Newman PA Mixed stress and urge urinary incontinence (Primary Dx); Chronic cough; Rheumatoid arthritis, involving unspecified site, unspecified whether rheumatoid factor present ([facility] V24, [facility] V28) 10/17/2024 Telephone Adult Medicine [address] [phone] Vidya Oliveira MD Fitting for DME; Appointment 10/09/[address] [phone] Vidya Oliveira MD prior auth for medication 10/08/2024 1:00 PM EDT Office Visit Adult [address] [phone] Wade Pdeersen PA Chronic cough (Primary Dx); Cerumen debris on tympanic membrane of both ears; Rosacea 10/08/2024 Telephone Adult [address] [phone] Vidya Oliveira MD Medication Problem 09/19/2024 [facility] Adult [address] [phone] Vidya Oliveira MD faxed order ([facility] - Med order 09/12/24) from Last 3 Months Immunizations Name Administration Dates Next Due Influenza trivalent, 0.5mL ( Fluad) 65yo and older 04/03/2024,02/22/2023,03/16/2022,03/17,04/02/2020,04/10/2019 Influenza trivalent, 0.5mL, preservative free (Fluarix; FluLaval; Fluzone) ages 6mo and older (Afluria) 3 years and older 03/19/2014,03/06/2013,02/22/2012,04/21,03/18/2009,04/09/2008,03/24/2007 ,05/23/2006,05/01/2005 [employer] SARS-CoV-2 COVID -19, vector-nr, rS-Ad26, preservative free 09/26/2020 Pneumococcal conjugate 13 va lent (Prevnar 13, PCV13) 2mo and older 09/09/2015 Pneumococcal polysaccharide 23 valent (Pneumovax 23) 2yo and older 07/22/2020,03/19/2014 Td Tetanus diptheria (Tdvax) 7yo and older 05/01/2005 Tdap Tetanus diptheria acell ular pertussis (Boostrix; Adacel) 7yo and older 11/19/2023,03/06/2013 Surgical History Surgery Date Site/Laterality Comments OTHER SURGICAL HISTORY PROCEDURE: DENIES PREVIOUS SURGERY Medical History Medical History Date Comments Rheumatoid arthritis(714.0) 04/22/2009 DX:R heumatoid arthritis(714.0) Mental retardation 04/22/2009 DX:Mental ret ardation Iron deficiency anemia 12/06/2018 DX:Iron d eficiency anemia Anxiety 03/13/2019 DX:Anxiety Osteopenia 08/13/2023 DX:Osteopenia Family History Medical History Relation Name Comments Diabetes Brother Diabetes Father Alzheimer's disease Mother Arthritis Mother Other cancer Sister pt does not kno w details Blindness Neg Hx Breast cancer Neg Hx Cataracts Neg Hx Glaucoma Neg Hx Macular degeneration Neg Hx Strabismus Neg Hx Relation Name Status Comments Brother Father Mother Sister Social History Tobacco Use Types Packs/Day Years Used Date Smoking Tobacco: Never Smokeless Tobacco: Never Tobacco Cessation:Counseling Given: Not Answered Alcohol Use Standard Drinks/Week Comments No 0 (1 standard drink = 0.6 oz pur e alcohol) Housing Instability Answer Date Recorde d Are you worried that in the next 2 months you may not have stable housing? No 07/21/2024 Food Access & Nutrition Answer Date Rec orded Do you have access to a vari ety of food including fruits and vegetables? Yes 07/21/2024 Health Literacy Answer Date Recorded How often do you need to hav e someone help you when you read instructions, pamphlets, or other written material from your doctor or pharmacy? Sometimes 07/21/2024 Caregiver: How often do you need to have someone help you when you read instructions, pamphlets, or other written material from your doctor or pharmacy? Not on file 07/21/2024 Financial Risk Answer Date Recorded How hard is it for you to pa y for the very basics like food, housing, medical care, and air conditioning / heating? Not very hard 07/21/2024 Transportation Answer Date Recorded Has the lack of transportati on kept you from meetings, work, or from getting things needed for daily living? No Has the lack of transportati on kept you from medical appointments or from getting medications? No 07/21/2024 Social Isolation Answer Date Recorded How often do you feel lonely or isolated from th ose around you? Rarely 07/21/2024 Food Risk Answer Date Recorded Within the past 12 months we worried whether our food would run out before we got money to buy more. Never true 07/21/2024 Within the past 12 months th e food we bought just didn't last and we didn't have money to get more. Never true 07/21/2024 Dependent Care Answer Date Recorded Do you need help finding or paying for care for your loved ones. For example, child care assistant or elderly care for an older adult? No 07/21/2024 Education Answer Date Recorded Do you think completing more education or training, like finishing a GED, going to college, or learning a trade, would be helpful for you? No 07/21/2024 Employment and Income Answer Date Recor ded During the last four weeks, have you been actively looking for work? No 07/21/2024 Living Situation Answer Date Recorded What is your living situation? 0 07/21/2024 Comments No Sex and Gender Information Value Date Recorded Sex Assigned at Not on file Legal Sex Female 2:20 PM EST Gender Identity Not on file Sexual Orientation Not on file Obstetrics History Para Term AB IAB SAB Ectopic Multiple Livin g Live Births 1 1 1 1 Date Outcome GA Total Labor Labor/2nd/3rd Weight Sex Type Anes PTL Bessie A1 A5 Name Clin Term Last Filed Vital Signs Vital Sign Reading Time Taken Comments Blood Pressure 102/60 10/08/2024 12:36 PM EDT Pulse 62 10/08/2024 12:36 PM EDT Temperature 36.3 C (97.4 F) 11/05/2024 8:54 AM EDT Respiratory Rate 14 11/05/2024 8:54 AM EDT Oxygen Saturation 97% 10/08/2024 12:36 PM EDT Inhaled Oxygen Concentration - - Weight 46.3 kg (102 lb) 11/05/2024 8:54 AM EDT Height 160 cm (5' 3 ) 11/05/2024 8:54 AM EDT Body Mass Index 18.07 11/05/2024 8:54 AM EDT Plan of Treatment Upcoming Encounters Date Type Department Care Team (Late st Contact Info) Description 12/15/2024 1:00 PM EDT Office Visit Adult Medicine [address] [phone] Vidya Denis MD [address] [place] [address] 01/20/2025 11:00 AM EDT Office Visit Adult [address] [phone] Vidya Denis MD [address] [place] [address] [phone] Health Maintenance Due Date Last Done Comments Zoster Vaccines (1 of 2) 1999 COVID-19 Vaccine ( season) 2024 09/29/2021, 04/28/2021, 09/26/2020, Additional history exists RSV Immunization Adult Patients (1 - 1-dose 75+ series) 2024 Medicare Annual Wellness Visit 04/03/2025 04/03/2024 Depression Screening 07/21/2025 07/21/2024, 04/03/20 Falls Risk Assessment 07/21/2025 07/21/2024, 024 Social Influencers of Health Screening 07/21/2025 07/21/2024 Osteoporosis Screening (Bone Density Screening) 08/08/2025 08/09/2023 Cholesterol Screening (Lipid Panel) 09/09/2028 09/10/2023 DTaP,Tdap,and Td Vaccines (4 - Td or Tdap) 11/18/2033 11/19/2023, 03/06/2013, 05/01/2005 Hepatitis C Screening Completed 03/06/2013 Pneumococcal Vaccine: 50+ Years Completed 07/22/2020, 09/09/2015, 03/19/2014 Influenza Vaccine Completed 04/03/2024, , 03/16/2022, Additional history exists Breast Cancer Screening Discontinued 08/22/19, 08/09/2023, 01/12/2022, Additional history exists Colorectal Cancer Screening: Colonoscopy Discontinued HIB Vaccines Aged Out No longer eligi ble based on patient's age to complete this topic HPV Vaccines Aged Out No longer eligi ble based on patient's age to complete this topic Hepatitis A Vaccines Aged Out No long er eligible based on patient's age to complete this topic Hepatitis B Vaccines Aged Out No long er eligible based on patient's age to complete this topic IPV Vaccines Aged Out No longer eligi ble based on patient's age to complete this topic MMR Vaccines Aged Out No longer eligi ble based on patient's age to complete this topic Meningococcal ACWY Vaccine Aged Out N o longer eligible based on patient's age to complete this topic Meningococcal B Vaccine Aged Out No l onger eligible based on patient's age to complete this topic RSV Immunization Patients Under 20 months Aged Out No longer eligible based on patient's age to complete this topic Varicella Vaccines Aged Out No longer eligible based on patient's age to complete this topic Procedures Procedure Name Priority Date/Time Associated Diagnosis Comments XR CHEST 2 VIEWS Routine 11/05/2024 9:48 AM EDT Chronic cough Cerumen debris on tympanic membrane of both ears Rosacea MG MAMMO DIGITAL SCREENING W GUALBERTO BILAT Routine 08/21/2024 10:15 AM EDT Encounter for screening mammogram for breast cancer DEPRESSION SCREENING Routine 04/03/2024 FALLS RISK ASSESSMENT Routine 10/19/2023 LIPID PANEL Routine 09/10/2023 DXA BONE DENSITY STUDY 1+ SITS AXIAL SKEL Routine 08/09/2023 11:13 AM EST Asymptomatic menopausal state HEPATITIS C SCREENING Routine 03/06/2013 from Last 3 Months or Most Recently Relevant to Health Maintenance Results * XR Chest 2 Views (11/05/2024 9:48 AM EDT) Anatomical Region Laterality Modality Body Radiographic Mona ging 11/05/2024 9:57 AM EDT Impressions 11/05/2024 10:02 AM EDT Prominence of the peripheral interstitial lung markings suggestive of chronic interstitial lung disease. Asymmetrically more prominent on the left side could be due to superimposed airspace disease or asymmetrically more prominent left interstitial lung disease. -------- FINAL REPORT -------- Dictated By: Nj Junior Dictated Date: 11/05/2024 09:57 ET Assigned Physician: Nj Junior Reviewed and Electronically Signed By: Nj Junior Signed Date: 11/05/2024 10:02 ET Workstation ID: [id number] Transcribed By: Self Edit Transcribed Date: 11/05/2024 09:57 ET Narrative 11/05/2024 10:02 AM EDT XR CHEST 2 VIEWS Reason: chronic cough Comparison: Chest radiograph on August 23, 2017. FINDINGS: Lungs: Prominence of peripheral interstitial lung markings, left greater than the right. Pleura: No pleural effusion or pneumothorax. Heart/Mediastinum: Cardiomediastinal silhouette is within normal limits. Bones : No acute findings. Procedure Note Nj Junior MD - 11/05/2024 XR CHEST 2 VIEWS Reason: chronic cough Comparison: Chest radiograph on August 23, 2017. FINDINGS: Lungs: Prominence of peripheral interstitial lung markings, left greaterthan the right. Pleura: No pleural effusion or pneumothorax. Heart/Mediastinum: Cardiomediastinal silhouette is within normal limits. Bones : No acute findings. IMPRESSION: Prominence of the peripheral interstitial lung markings suggestive ofchronic interstitial lung disease. Asymmetrically more prominent on theleft side could be due to superimposed airspace disease or asymmetricallymore prominent left interstitial lung disease. -------- FINAL REPORT -------- Dictated By: Nj Junior Dictated Date: 11/05/2024 09:57 ET Assigned Physician: Nj Junior Reviewed and Electronically Signed By: Nj Junior Signed Date: 11/05/2024 10:02 ET Workstation ID: [id number] Transcribed By: Self Edit Transcribed Date: 11/05/2024 09:57 ET us Wade [facility] XR PROCEDURES Final Result * MG Mammo Digital Screening w Gualberto bilat (08/21/2024 10:15 AM EDT) Anatomical Region Laterality Modality Breast Bilateral Mammography 08/21/2024 5:47 PM EDT Impressions 08/21/2024 5:50 PM EDT 1. No mammographic evidence of malignancy 2. Heterogeneous breast parenchyma BI-RADS CATEGORY: 2 - BENIGN RECOMMENDATION: Screening bilateral mammogram is recommended in 1 year. Mammo Location: [facility], [address] [place] [address], [id number], . -------- FINAL REPORT -------- Dictated By: Elizabeth Castro Dictated Date: 08/21/2024 17:47 ET Assigned Physician: Elizabeth Castro Reviewed and Electronically Signed By: Elizabeth Castro Signed Date: 08/21/2024 17:50 ET Workstation ID: [id number] Transcribed By: Self Edit Transcribed Date: 08/21/2024 17:47 ET Narrative 08/21/2024 5:50 PM EDT A BILATERAL DIGITAL 3D SCREENING MAMMOGRAPHY HISTORY: Routine screening. No family history of breast cancer. COMPARISON: Multiple priors dating back to 12/09/2020 Technique: Bilateral full field digital mammography (3D) was performed using standard CC and MLO projections , right breast exaggerated CC CAD was used to evaluate this mammogram. FINDINGS: Right: No suspicious masses, groups of microcalcification or areas of architectural distortion identified. Stable typically benign parenchymal asymmetries. Left: No suspicious masses, groups of microcalcification or areas of architectural distortion identified. Stable typically benign parenchymal asymmetries. BREAST DENSITY: C - The breasts are heterogeneously dense which may obscure small masses. Procedure Note Elizabeth Castro MD - 08/21/2024 A BILATERAL DIGITAL 3D SCREENING MAMMOGRAPHY HISTORY: Routine screening. No family history of breast cancer. COMPARISON: Multiple priors dating back to 12/09/2020 Technique: Bilateral full field digital mammography (3D) was performedusing standard CC and MLO projections , right breast exaggerated CC CAD was used to evaluate this mammogram. FINDINGS: Right: No suspicious masses, groups of microcalcification or areas ofarchitectural distortion identified. Stable typically benign parenchymalasymmetries. Left: No suspicious masses, groups of microcalcification or areas ofarchitectural distortion identified. Stable typically benign parenchymalasymmetries. BREAST DENSITY: C - The breasts are heterogeneously dense which mayobscure small masses. IMPRESSION: 1. No mammographic evidence of malignancy 2. Heterogeneous breast parenchyma BI-RADS CATEGORY: 2 - BENIGN RECOMMENDATION: Screening bilateral mammogram is recommended in 1 year. Mammo Location: [facility], [address] [place] [address], [phone], . -------- FINAL REPORT -------- Dictated By: Elizabeth Castro Dictated Date: 08/21/2024 17:47 ET Assigned Physician: Elizabeth Castro Reviewed and Electronically Signed By: Elizabeth Castro Signed Date: 08/21/2024 17:50 ET Workstation ID: [id number] Transcribed By: Self Edit Transcribed Date: 08/21/2024 17:47 ET Vidya Denis MD IMG BI PROCEDURES Final Result * Depression Screening (04/03/2024) Depression Screening abstracted Historical Provider HEALTH MAINTENANCE Final Result * Falls Risk Assessment (10/19/2023) Falls Risk Assessment abstracted Historical Provider HEALTH MAINTENANCE Final Result * Lipid panel (09/10/2023) LDL/HDL Ratio 3 0 - 4 Triglycerides 97 0 - 150 mg/dL Cholesterol 165 0 - 200 mg/dL HDL 57 >=40 mg/dL LDL Cholesterol 89 0 - 100 mg/dL Blood Venous blood specimen / Unknown us Historical Provider LAB BLOOD ORDERABLES Leeanna l Result * DXA BONE DENSITY STUDY 1+ SITS AXIAL SKEL (08/09/2023 11:13 AM EST) Anatomical Region Laterality Modality Bone Densitometr y 03/15/2023 11:3 5 AM EDT Narrative 08/09/2023 6:32 PM EST BONE DENSITY SCAN (DEXA): FINDINGS: Lumbar Spine T-score is 1.5. (SD relative to 20-29 y/o adult) Z-score is 2.8. (SD relative to age matched peers) This is considered normal by WHO criteria. Left Hip T-score is -1.5. Z-score is 0.5. This is considered osteopenia by WHO criteria. Comparison exam(s): None. IMPRESSION: IMPRESSION: Osteopenia by WHO criteria. This patient has a 13% risk of major osteoporotic fracture and a 2.8% risk of hip fracture over the next 10 years. (World Health Organization Fracture Risk Assessment) [facility] Department of Internal Medicine recommends using National Osteoporosis Foundation (NOF) guidelines in treatment decisions related to osteoporosis. NOF guidelines suggest considering treatment for postmenopausal women and men aged 50 or older presenting with the following: History of hip or vertebral fracture. T-score = -2.5 (DXA) at the femoral neck, total hip, or spine, after appropriate evaluation to exclude secondary causes. Low bone mass (T-score between -1.0 and -2.5 at the femoral neck or spine) AND a 10-year probability of a hip fracture = 3% OR a 10-year probability of a major osteoporosis-related fracture = 20% based on the [place]-adapted WHO algorithm Please note that all treatment decisions require clinical judgment and consideration of individual patient factors, including patient preferences, co-morbidities, previous drug use, risk factors not captured in the FRAX model (e.g., frailty, falls, vitamin D deficiency, increased bone turnover, interval significant decline in bone density) and possible under- or over-estimation of fracture risk by FRAX. Optional alternative screening schedule based on swapnil Sequeira., [facility] June 29, 2011 for patients with osteopenia (based on hip BMD T-score) is as follows: * advanced osteopenia (T scores -2.00 to -2.49), BMD testing every year * moderate osteopenia (T scores -1.50 to -1.99), BMD testing every 5 years mild osteopenia or normal BMD (T scores -1.50 and higher), BMD testing every 15 years Procedure Note Vanessa Valerio MD - 01/28/2024 BONE DENSITY SCAN (DEXA): FINDINGS: Lumbar Spine T-score is 1.5. (SD relative to 20-29 y/o adult) Z-score is 2.8. (SD relative to age matched peers) This is considered normal by WHO criteria. Left Hip T-score is -1.5. Z-score is 0.5. This is considered osteopenia by WHO criteria. Comparison exam(s): None. IMPRESSION: IMPRESSION: Osteopenia by WHO criteria. This patient has a 13% risk of majorosteoporotic fracture and a 2.8% risk of hip fracture over the next 10 years. (World HealthOrganization Fracture Risk Assessment) [facility] Department of Internal Medicine recommendsusing National Osteoporosis Foundation (NOF) guidelines in treatment decisions related toosteoporosis. NOF guidelines suggest considering treatment for postmenopausal women and menaged 50 or older presenting with the following: History of hip or vertebral fracture. T-score = -2.5 (DXA) at the femoral neck, total hip, or spine, afterappropriate evaluation to exclude secondary causes. Low bone mass (T-score between -1.0 and -2.5 at the femoral neck or spine)AND a 10-year probability of a hip fracture = 3% OR a 10-year probability of a majorosteoporosis-related fracture = 20% based on the [place]-adapted WHO algorithm Please note that all treatment decisions require clinical judgment andconsideration of individual patient factors, including patient preferences, co- morbidities,previous drug use, risk factors not captured in the FRAX model (e.g., frailty, falls, vitaminD deficiency, increased bone turnover, interval significant decline in bone density) andpossible under- or over-estimation of fracture risk by FRAX. Optional alternative screening schedule based on swapnil Sequeira., NEJMJanuary 2011 for patients with osteopenia (based on hip BMD T-score) is as follows: * advanced osteopenia (T scores -2.00 to -2.49), BMD testing every year * moderate osteopenia (T scores -1.50 to -1.99), BMD testing every 5years mild osteopenia or normal BMD (T scores -1.50 and higher), BMD testingevery 15 years [facility] DXA PROCEDURES Final Result * Hepatitis C Screening (03/06/2013) [facility] [employer] Hepatitis C Screening abstracted Historical Provider MD HEALTH MAINTENANCE Final Result from Last 3 Months or Most Recently Relevant to Health Maintenance Insurance MEDICARE [place] Care Teams Chemist Enzymes Relationship Specialty Start Date End Date Vidya Denis MD [address] [place] [id number] PCP - General Internal Medicine 01/09/22
[2024-12-06] MEDS: Doxycycline Monohydrate 100 MG CAPSULE PO (21:58)
[2024-12-06] MEDS: cephALEXin 500 MG CAPSULE PO (21:58)
[2024-12-06 21:59] VITALS: BP 126/56; PULSE 99; RESP 18; TEMP 37.1; O2SAT 97
== END 2024-12-06 22:00 | disposition home or self-care (01) ==
PROVIDERS: Emergency Provider Internal Medicine; PCP Internal Medicine
DX: L03.116 Cellulitis of left lower limb (principal); R60.0 Localized edema; I25.10 Atherosclerotic heart disease of native coronary artery without angina pectoris; M25.572 Pain in left ankle and joints of left foot; Z79.899 Other long term (current) drug therapy
CPT/HCPCS: 73600; 99283; 99284

== ENCOUNTER → 2024-12-06 20:15 | Outpatient (BNV) | payer MEDICARE, MEDICAID, SELFPAY | PROVIDERS: PCP Internal Medicine; Visit Provider Radiology Diagnostic Radiology | DX: R22.42 Localized swelling, mass and lump, left lower limb (principal) | CPT/HCPCS: 73600 ==

== ENCOUNTER 2025-01-26 20:59 | Emergency (ER) | payer MEDICARE, MEDICAID, SELFPAY ==
[2025-01-26 21:36] VITALS: BP 116/70; PULSE 69; O2SAT 99; BMI 19.4
--- OUTSIDE RECORDS SUMMARY | 2025-01-26 21:53 | XMS_ITS ---
Author Name Lauren GIORGI, MS. Odalis Boothe Address [address] [place] [address] Phone [phone] [facility] Care Team Providers Care Modern Languages Professor Name Role Phone Odalis Aguilar Unavailable [phone] [facility] Unavailable [phone] Reason for Referral Not Available Allergies, adverse reactions, alerts No known allergies History of medication use Medication Class Instructions Start Date End Date traMADol 50 mg Tab 2 tabs po bid 2022-06-07 No Data Available Hydroxychloroquine Sulfate 2 00 mg Tab TAKE 1 TABLET BY MOUTH EVERY DAY 2021-09-14 No Data Available Leflunomide 20 mg Tab TAKE 1 TABLET BY M OUTH ONCE A DAY (LABS EVERY OTHER MONTH) 2021-12-22 No Data Available busPIRone 15 mg Tab TAKE 1 TABLET BY JETT TH TWICE A DAY 2021-12-29 No Data Available Folic Acid 1 mg Tab TAKE 1 TABLET BY JETT TH EVERY DAY 2021-12-22 No Data Available Diclofenac Sodium 1 % Gel APPLY 4 GRAMS TO EFFECTED AREA 4 TIMES A DAY 2021-10-05 No Data Available Ferrous Sulfate 325 (65 Fe) MG Tab TAKE 1 TABLET BY MOUTH EVERY DAY 2022-01-19 No Data Available CALCIUM 600 MG TABLET TAKE 1 TABLET BY M OUTH DAILY 2022-02-02 No Data Available traMADol 50 mg Tab TAKE 2 TABLETS BY MO UTH TWICE A DAY NEEDED FOR PAIN 2022-02-03 No Data Available Loratadine 10 mg Tab TAKE 1 TABLET BY MO UTH EVERY DAY 2022-02-02 No Data Available [facility] Ear Drops 6.5 % Solution PLEASE SEE ATTACHED FOR DETAILED DIRECTIONS 2022-04-13 No Data Available Omeprazole 20 mg Cap delayed rel TAKE 1 CAPSULE BY MOUTH EVERY DAY 2022-04-27 No Data Available Methotrexate Sodium 50 mg/2M L Solution INJECT 0.8 ML ONCE A WEEK TO BE GIVEN IN OFFICE 2022-10-27 No Data Available Problem List Problem Status Onset Date Resolved Date Synopsis Rheumatoid arthritis, unspecified Active 2022-06-07 N/A Pain present to lower back and knees (worse in cold weather)Wheelchair bound as she is unstable due to pain Was on methotrexate but could not tolerate Now receives injections every 6 months at rheumatology office- not sure of the name of medication takes tramadol as needed for pain which is helpful Feels condition is stable tramadol BIDContingency plan: Rest, ice for 48-72 hrs for 20 min 3-4 times a day. Put ice pack in a pillow case or in a towel then use biofreeze or Voltran and apply to the affected area 3-4 times a day. Take Tylenol ES 2 tablets Q 8 hrs for 48-72 hrs Can also use supportive compression devices to affected area. After 72 hrs if you still have pain apply moist heat using a moist towel and put it in the microwave until it is warm to touch & apply for 15-20mins do this 3-4 times a day until area has resolved or changed to being worse. If it's worse call us back for further direction. GERD (gastroesophageal reflux disease) Active 2022-06-07 N/A Stable on ompera zole Asymptomatic and denies any recent flaresAware of triggers and avoids them Avoid dietary triggers caffeine, chocolate, spicy foods, food with high fat content, carbonated beverages, and peppermintEncourage abdominal breathing exercises take 30minutes on empty stomach before mealscont to watch low levels of vitamin D level, Ca, FE, B12, MG Status post fall Active 2023-03-28 N/A 03/28/23 : fell 03/16/23 - EMS called, took to ER- CT scan - fine per CG- declining since - unable to transfer or care for self, not eating, lives independent. Vomit this am on clothes. Refuses to go to ER. PCP refuses to see and says to go to ER. Has a Sister - comes once every 6 mo but did come over the weekend twice to check on member - advised to go to ER - member refused. Has caregivers - [facility] 3 x week - 7 hours/wk, HH Aide 3 x week 7 hrs/wk, now sits in wc only - open wounds. CG and HH services want her to go to ER and then be hospitalized d/t weakness, behavior changes, etc. Will speak to Primary C[facility] and [employer] for thoughts. - Dr. Carli Santamaria suggests HOSPICE if pt refusing ER and other thoughts are contact APS for a wellness and safety check. 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 Next visit will obtain a PHQ Encounters Encounters Type Facility Date of Service Diagnosis/Co mplaint New patient,40-59min; chronic exacerbation, 2 stable chronic or 1 acute illness add add modifier 95 for video (do not use for phone, instead use [id number]) [facility], ([place]) [place]/07/[place]22 Rheumatoid arthritis, unspecifiedAnxiety disorder, unspecifiedGastro-esophageal reflux disease without esophagitis New patient,40-59min; chronic exacerbation, 2 stable chronic or 1 acute illness add add modifier 95 for video (do not use for phone, instead use [id number]) [facility] ([place] 06[place] New patient,40-59min; chronic exacerbation, 2 stable chronic or 1 acute illness add add modifier 95 for video (do not use for phone, instead use 99249-56) [facility] ([place] 06[place] New patient,40-59min; chronic exacerbation, 2 stable chronic or 1 acute illness add add modifier 95 for video (do not use for phone, instead use 24416-06) [facility], ([place]) 06/07/2022 New patient,40-59min; chronic exacerbation, 2 stable chronic or 1 acute illness add add modifier 95 for video (do not use for phone, instead use 76538-80) [facility] ([place] New patient,40-59min; chronic exacerbation, 2 stable chronic or 1 acute illness add add modifier 95 for video (do not use for phone, instead use 25905-27) [facility] ([place] New patient,40-59min; chronic exacerbation, 2 stable chronic or 1 acute illness add add modifier 95 for video (do not use for phone, instead use 80762-32) [facility] ([place] Estab. patient 30-39min; chronic exacerbation, 2 stable chronic or 1 acute illness add add modifier 95 for video, (do not use for phone, instead use 35239-83) [facility] ([place]22 Rheumatoid arthritis, unspecifiedAnxiety disorder, unspecifiedGastro-esophageal reflux disease without esophagitis Estab. patient 30-39min; chronic exacerbation, 2 stable chronic or 1 acute illness add add modifier 95 for video, (do not use for phone, instead use 89828-17) [facility] ([place] Estab. patient 30-39min; chronic exacerbation, 2 stable chronic or 1 acute illness add add modifier 95 for video, (do not use for phone, instead use 12557-12) [facility] [place] Estab. patient 30-39min; chronic exacerbation, 2 stable chronic or 1 acute illness add add modifier 95 for video, (do not use for phone, instead use 85329-67) [facility] [place] Estab. patient 30-39min; chronic exacerbation, 2 stable chronic or 1 acute illness add add modifier 95 for video, (do not use for phone, instead use 44296-28) [facility] ([place] Estab. patient 30-39min; chronic exacerbation, 2 stable chronic or 1 acute illness add add modifier 95 for video, (do not use for phone, instead use 82479-32) [facility] ([place]) 12/28/2022 Estab. patient 30-39min; chronic exacerbation, 2 stable chronic or 1 acute illness add add modifier 95 for video, (do not use for phone, instead use 54886-48) [facility] ([place] Estab. patient 30-39min; chronic exacerbation, 2 stable chronic or 1 acute illness add add modifier 95 for video, (do not use for phone, instead use 30283-47) [facility] ([place] Estab. patient 10-29min; 1 minor problem; add add modifier 95 for video, modifier 93 for phone [facility] ([place] 03/28/2023 History of falling Unlisted special service; to be used for medical record reviews and reporting CPTII codes (1111F, etc) [facility] ([place] 03[place]29/2023 Rheumatoid arthritis, unspecifiedAnxiety disorder, unspecifiedMajor depressive disorder, recurrent, moderateGastro-esophageal reflux disease without esophagitisHistory of fallingImmunodeficiency, unspecified Unlisted special service; to be used for medical record reviews and reporting CPTII codes (1111F, etc) [facility] ([place] 03/29/2023 Unlisted special service; to be used for medical record reviews and reporting CPTII codes (1111F, etc) [facility] ([place] 03/29/2023 Unlisted special service; to be used for medical record reviews and reporting CPTII codes (1111F, etc) [facility] ([place] 03/29/2023 Vital Signs Date of Collection Vitals 2022-12-28 09:14:56 Pain Scale - 5.0 {sc ore} Social History Social History Social History Observation Description Effec tive Time Current Smoking Status Never smoker 2025-01-09 9 Sex Female History of Procedures Procedures Service Procedure code Service date Servicing provider Phone# New patient,40-59min; chronic exacerbation, 2 stable chronic or 1 acute illness add add modifier 95 for video (do not use for phone, instead use 60060-86) 66060 2022-06-07 No Data Available No Data Availa ble Medication List Documented (1159F) 1159F 2022-06-07 No Data Available No Data Seema ilable Medication Review by prescribing provider or pharmacist documented (1160F) 1160F 2022-06-07 No Data Available No Data Seema ilable Functional Status Assessed (1170F) 1170F 2022-06-07 No Data Available No Data Avail able Advance Care Directive Advance care planning discussion documented in the medical record (1158F) 1158F 2022-06-07 No Data Available No Data Availa ble BMI obtained (3008F) 3008F 2022-06-07 No Data Availab le No Data Available Pain Assessment - Pain Documented on a Pain Scale (1125F) 1125F 2022-06-07 No Data Available No Data Seema ilable Estab. patient 30-39min; chronic exacerbation, 2 stable chronic or 1 acute illness add add modifier 95 for video, (do not use for phone, instead use 29324-27) 47839 2022-12-28 No Data Available No Data Availa ble Medication List Documented (1159F) 1159F 2022-12-28 No Data Available No Data Seema ilable Medication Review by prescribing provider or pharmacist documented (1160F) 1160F 2022-12-28 No Data Available No Data Seema ilable Pain Assessment - Pain Documented on a Pain Scale (1125F) 1125F 2022-12-28 No Data Available No Data Seema ilable BMI obtained (3008F) 3008F 2022-12-28 No Data Availab le No Data Available Advance Care Directive Advance care planning discussion documented in the medical record (1158F) 1158F 2022-12-28 No Data Available No Data Availa ble Advance care planning discussed and documented in the medical record beneficiary/patient did not wish to or was unable to provide an advance care plan or name a surrogate decision-maker. (1124F) 1124F 2022-12-28 No Data Available No Data Availa ble Functional Status Assessed (1170F) 1170F 2022-12-28 No Data Available No Data Avail able Estab. patient 10-29min; 1 minor problem; add add modifier 95 for video, modifier 93 for phone 39535 2023-03-28 No Data Available No Data Availa ble Unlisted special service; to be used for medical record reviews and reporting CPTII codes (1111F, etc) 04150 2023-03-29 No Data Available No Data Availa ble Medication List Documented (1159F) 1159F 2023-03-29 No Data Available No Data Seema ilable Functional Status Assessed (1170F) 1170F 2023-03-29 No Data Available No Data Avail able Pain Assessment - NO pain present (1126F) 1126F 2023-03-29 No Data Available No Data A vailable Functional Status Functional Category Effective Dates wheelchair bound 2022-06-07 independent with transfers, dressing, fe eding, toileting 2022-06-07 needs assist with showers, cleaning, and med management 2022-06-07 Mental Status Status Date A&Ox3 2022-06-07 Assessments Date of Service Assessments 2022-06-07 09:51:25 Rheumatoid arthritis , unspecifiedAnxietyGERD (gastroesophageal reflux disease) 2022-12-28 09:14:56 Rheumatoid arthritis , unspecifiedPain present to lower back and knees (worse in cold weather)Wheelchair bound as she is unstable due to pain Was on methotrexate but could not tolerate Now receives injections every 6 months at rheumatology office- not sure of the name of medication takes tramadol as needed for pain which is helpful Feels condition is stable 12/28tramadol BIDContingency plan: Rest, ice for 48-72 hrs for 20 min 3-4 times a day. Put ice pack in a pillow case or in a towel then use biofreeze or Voltran and apply to the affected area 3-4 times a day. Take Tylenol ES 2 tablets Q 8 hrs for 48-72 hrs Can also use supportive compression devices to affected area. After 72 hrs if you still have pain apply moist heat using a moist towel and put it in the microwave until it is warm to touch & apply for 15-20mins do this 3-4 times a day until area has resolved or changed to being worse. If it's worse call us back for further direction.AnxietyFeels her mood is stable on buspironeDenies any depression Not followed by psych and does not think she needs to be ALVARADO-7=0 and PHQ=0 12/28/22pt is controlled with Buspardenies depression and anxietyGERD (gastroesophageal reflux disease)Stable on omperazole Asymptomatic and denies any recent flaresAware of triggers and avoids them 12/28/22same medicationAvoid dietary triggers caffeine, chocolate, spicy foods, food with high fat content, carbonated beverages, and peppermintEncourage abdominal breathing exercises take 30minutes on empty stomach before mealscont to watch low levels of vitamin D level, Ca, FE, B12, MG 2023-03-28 07:44:05 Follow up plan for a cute symptoms: Will speak to Primary APPStatus post fall 2023-03-29 10:58:40 Rheumatoid arthritis , unspecifiedAnxietyGERD (gastroesophageal reflux disease)Status post fallImmunocompromised Plan of Care Date of Service Plans 2022-06-07 09:51:25 Medication Review by prescribing provider or pharmacist documented (1160F)Medication List Documented (1159F)Functional Status Assessed (1170F)Advance Care Directive Advance care planning discussion documented in the medical record (1158F)Pain Assessment - Pain Documented (1125F)Televideo new patient,40-59min; chronic exacerbation, 2 stable chronic or 1 acute illness add modifier 95Continue to see PCP. Follow-up with [facility] as needed for any acute or disease education needs that may arise.Pain present to lower back and knees (worse in cold weather)Wheelchair bound as she is unstable due to pain Was on methotrexate but could not tolerate Now receives injections every 6 months at rheumatology office- not sure of the name of medication takes tramadol as needed for pain which is helpful Feels condition is stableFeels her mood is stable on buspironeDenies any depression Not followed by psych and does not think she needs to be ALVARADO-7=0 and PHQ=0Stable on omperazole Asymptomatic and denies any recent flaresAware of triggers and avoids them 2022-12-28 09:14:56 Medication Review by prescribing provider or pharmacist documented (1160F)Medication List Documented (1159F)Functional Status Assessed (1170F)Advance Care Directive Advance care planning discussion documented in the medical record (1158F)BMI obtained (3008F)Televideo 30-39min; chronic exacerbation, 2 stable chronic or 1 acute illness add modifier 95Advance care planning discussed and documented advance care plan or surrogate decision-maker was documented in the medical record. (1123F)Advance care planning discussed and documented in the medical record beneficiary/patient did not wish to or was unable to provide an advance care plan or name a surrogate decision-maker. (1124F)Pain Assessment - NO pain documented (1126F)Continue to see PCP. Follow-up with [facility] as needed for any acute or disease education needs that may arise. 2023-03-28 07:44:05 Televideo 10-29min; 1 minor problem; add modifier 95Continue to see PCP. Follow-up with [facility] as needed for any acute or disease education needs that may arise 01/01.03/28/23: fell 03/16/23 - EMS called, took to ER- CT scan - fine per CG- declining since - unable to transfer or care for self, not eating, lives independent. Vomit this am on clothes. Refuses to go to ER. PCP refuses to see and says to go to ER. Has a Sister - comes once every 6 mo but did come over the weekend twice to check on member - advised to go to ER - member refused. Has caregivers - [facility] 3 x week - 7 hours/wk, HH Aide 3 x week 7 hrs/wk, now sits in wc only - open wounds. CG and HH services want her to go to ER and then be hospitalized d/t weakness, behavior changes, etc. Will speak to Primary C[facility] and [employer] for thoughts. - Dr. Carli Santamaria suggests HOSPICE if pt refusing ER and other thoughts are contact APS for a wellness and safety check. Discussed with primary CATHY, Odalis Aguilar - she will reach out to member. 2023-03-29 10:58:40 Phone (patient, pare nt, or guardian); 5-10 minutes of medical discussion (no modifier 95)Continue to see PCP. Follow-up with [facility] as needed for any acute or disease education needs that may arise 01/01.Pain present to lower back and knees (worse in cold weather)Wheelchair bound as she is unstable due to pain Was on methotrexate but could not tolerate Now receives injections every 6 months at rheumatology office- not sure of the name of medication takes tramadol as needed for pain which is helpful Feels condition is stable tramadol BIDContingency plan: Rest, ice for 48-72 hrs for 20 min 3-4 times a day. Put ice pack in a pillow case or in a towel then use biofreeze or Voltran and apply to the affected area 3-4 times a day. Take Tylenol ES 2 tablets Q 8 hrs for 48-72 hrs Can also use supportive compression devices to affected area. After 72 hrs if you still have pain apply moist heat using a moist towel and put it in the microwave until it is warm to touch & apply for 15-20mins do this 3-4 times a day until area has resolved or changed to being worse. If it's worse call us back for further direction.Feels her mood is stable on buspironeDenies any depression Not followed by psych and does not think she needs to be Initial ALVARADO-7=0 and PHQ=0 12/28/22pt is controlled with Buspardenies depression and anxiety 03/29/23: Admissions Supervisor states she is very depressed, patient denies anxiety or depression previously. Next visit will obtain a PHQStable on omperazole Asymptomatic and denies any recent flaresAware of triggers and avoids them Avoid dietary triggers caffeine, chocolate, spicy foods, food with high fat content, carbonated beverages, and peppermintEncourage abdominal breathing exercises take 30minutes on empty stomach before mealscont to watch low levels of vitamin D level, Ca, FE, B12, MG03/28/23: fell 03/16/23 - EMS called, took to ER- CT scan - fine per CG- declining since - unable to transfer or care for self, not eating, lives independent. Vomit this am on clothes. Refuses to go to ER. PCP refuses to see and says to go to ER. Has a Sister - comes once every 6 mo but did come over the weekend twice to check on member - advised to go to ER - member refused. Has caregivers - [facility] 3 x week - 7 hours/wk, HH Aide 3 x week 7 hrs/wk, now sits in wc only - open wounds. CG and HH services want her to go to ER and then be hospitalized d/t weakness, behavior changes, etc. Will speak to Primary C[facility] and [employer] for thoughts. - Dr. Carli Santamaria suggests HOSPICE if pt refusing ER and other thoughts are contact APS for a wellness and safety check. Discussed with primary CATHY, Odalis Aguilar - she will reach out to member.03/29/23: Patient went to ER [facility] Previously Coded, ICD10: [id number]: Immunodeficiency due to drugsAlso with history of RA Goals Date Goal 2022-06-07 Remember to take med ications regularly and follow up with providers routinely 2022-06-07 Call me if any pain worsens or you develop sob or chest pain 2022-06-07 Keep it up proper pa in management Health Concerns Date Concern 2023-03-29 Visit completed via audio by telephone. Patient/Guardian agreed to visit via telehealth.Time spent in visit: 3 minutes 2023-03-29 Most recent hospital stay(s) or ER visit(s) and precipitating factors: 03/29/23 Currently in ER 2023-03-29 HEDIS review: Done 2023-03-29 Spoke with Admissions Supervisor at bedside: Desmond who states she is in ER, positive for Covid, she is being admitted 2023-03-29 Plan to follow up po st discharge
--- OUTSIDE RECORDS SUMMARY | 2025-01-26 21:53 | XMS_ITS | Clinical Summary ---
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 2 tab qam Active leflunomide (ARAVA) 20 mg tablet 12/04/19 24 Active methotrexate sodium/PF (methotrexate PF) 25 mg/mL injection 12/07/19 24 Active sulfaSALAzine (AZULFIDINE EN-TABS) 500 mg EC tablet Take 2 tablets (1,000 mg total) by mouth 2 (two) times a day. 03/26/20 24 Active dextromethorph an-guaiFENesin (Tussin DM) 10-100 mg/5 mL syrup Take 10 mL by mouth every 6 (six) hours if needed for cough. 400 mL 07/29/19 25 Active folic acid (FOLVITE) 1 mg tablet TAKE 1 TABLET BY MOUTH EVERY MORNING 30 tablet 3 10/01/19 25 Active metroNIDAZOLE (METROGEL) 0.75 % gel Apply twice daily to rosacea for 8 weeks 45 g 2 10/10/19 25 025 Active melatonin 3 mg tablet Take 1 tablet (3 mg total) by mouth at bedtime. at bedtime. 30 tablet 3 11/06/19 25 Active multivitamin-m vw-weqd-TQ-vit K 18 mg iron-400 mcg-25 mcg tablet Take 1 tablet by mouth 1 (one) time each day in the morning. 30 each 11 11/07/19 25 Active calcium carbonate 1,500 mg (600 mg elemental calcium) tablet TAKE 1 TABLET BY MOUTH EVERY MORNING 30 tablet 2 12/09/19 25 Active acetaminophen (TYLENOL 8 HOUR) 650 mg 8 hr tablet Take 1 tablet (650 mg total) by mouth 1 (one) time each day in the morning. 90 tablet 12/10/19 25 Active fexofenadine (DAVID) 180 mg tablet Take 1 tablet (180 mg total) by mouth 1 (one) time each day if needed (allergies). 30 tablet 2 12/16/19 25 Active metoprolol tartrate (LOPRESSOR) 25 mg tablet Take 0.5 tablets (12.5 mg total) by mouth 2 (two) times a day. 90 tablet 1 12/30/19 25 Active omeprazole (PriLOSEC) [address] capsule Take 1 capsule (20 mg total) by mouth 1 (one) time each day in the morning. 30 capsule 1 12/30/19 25 Active Bacillus coagulans-inul in (Probiotic Formula, inulin,) 1 billion-250 cell-mg capsule Take 1 capsule by mouth 2 (two) times a day. 180 capsule 1 01/07/20 25 Active dicyclomine (BENTYL) 10 mg capsule TAKE 1 CAPSULE BY MOUTH FOUR TIMES A DAY IF NEEDED FOR ABDOMINAL PAIN 120 capsule 01/15/20 25 Active busPIRone (BUSPAR) 15 mg tablet TAKE 1 TABLET BY MOUTH TWICE A DAY 60 tablet 1 01/21/20 25 Active metoprolol tartrate (LOPRESSOR) 25 mg tablet Take 0.5 tablets (12.5 mg total) by mouth 2 (two) times a day. 90 tablet 1 05/16/20 24 025 Discontinued(Re order) omeprazole (PriLOSEC) [address] capsule TAKE 1 CAPSULE BY MOUTH EVERY MORNING 30 capsule 1 09/30/19 25 025 Discontinued(Re order) Bacillus coagulans-inul in (Probiotic Formula, inulin,) 1 billion-250 cell-mg capsule TAKE 1 CAPSULE BY MOUTH 2 TIMES DAILY. 60 capsule 1 11/05/19 25 025 Discontinued(Re order) busPIRone (BUSPAR) 15 mg tablet Take 1 tablet (15 mg total) by mouth 2 (two) times a day. 180 tablet 11/06/19 25 025 Discontinued dicyclomine (BENTYL) 10 mg capsule TAKE 1 CAPSULE BY MOUTH FOUR TIMES A DAY IF NEEDED FOR ABDOMINAL PAIN 120 capsule 12/17/19 25 025 Discontinued Active Problems Problem Noted Date Diagnosed Date [...] 04/23/2009 Intellectual disability 04/22/2009 Assessment & Plan (12/15/2024 2:47 PM EDT): Good level of performance. No disorganization. Assessment & Plan (07/21/2024 3:56 PM EST): [...] Encounters Date Type Department Care Team Description 01/26/2025 Telephone Adult Medicine [address] [phone] Vidya Palmer MD Fitting for DME (Manual Wheelchair [employer]/Labor) 12/31/2024 12:28 PM EDT - 12/31/2024 11:59 PM EDT Hospital Encounter Radiology Department - [address] [phone] Left kidney mass Discharge Disposition: Home or Self Care 12/16/2024 9:15 AM EDT - 12/16/2024 11:59 PM EDT Hospital Encounter CT Scan - [address] [phone] Chronic cough Discharge Disposition: Home or Self Care 12/15/2024 1:00 PM EDT Office Visit Adult [address] [phone] Vidya Palmer MD Chronic cough (Primary Dx); Intellectual disability 11/05/2024 9:28 AM EDT - 11/05/2024 11:59 PM EDT Hospital Encounter XRAY - [address] [phone] Chronic cough; Cerumen debris on tympanic membrane of both ears; Rosacea Discharge Disposition: Home or Self Care 11/05/2024 9:00 AM EDT Office Visit Adult Medicine [address] [phone] Ching Newman PA Mixed stress and urge urinary incontinence (Primary Dx); Chronic cough; Rheumatoid arthritis, involving unspecified site, unspecified whether rheumatoid factor present ([facility] V24, [facility] V28) from Last 3 Months Immunizations Name Administration Dates Next Due Influenza trivalent, 0.5mL ( Fluad) 65yo and older 04/03/2024,02/22/2023,03/16/2022,03/17,04/02/2020,04/10/2019 Influenza trivalent, 0.5mL, preservative free (Fluarix; FluLaval; Fluzone) ages 6mo and older (Afluria) 3 years and older 03/19/2014,03/06/2013,02/22/2012,04/21,03/18/2009,04/09/2008,03/24/2007 ,05/23/2006,05/01/2005 [employer] SARS-CoV-2 COVID -19, vector-nr, rS-Ad26, preservative free [...] care for your loved ones. For example, childrens club attendant or elderly care for an older adult? [...] Sign Reading Time Taken Comments Blood Pressure 108/59 12/15/2024 1:13 PM EDT Pulse 78 12/15/2024 1:13 PM EDT Temperature 36.6 C (97.8 F) 12/15/2024 1:13 PM EDT Respiratory Rate 16 12/15/2024 1:13 PM EDT Oxygen Saturation 100% 12/15/2024 1:13 PM EDT Inhaled Oxygen Concentration - - Weight 46.3 kg (102 lb) 11/05/2024 8:54 AM EDT Height 160 cm (5' 3 ) 11/05/2024 8:54 AM EDT Body Mass Index 18.07 11/05/2024 8:54 AM EDT Plan of Treatment Upcoming Encounters Date Type Department Care Team (Late st Contact Info) Description 01/27/2025 10:30 AM EDT Office Visit Adult Medicine [facility] [address], [place] [phone] Scarlett Coleman, PHYSICAL THERAPY DIRECTOR [address], [place] 03/12/2025 10:10 AM EDT Office Visit Gastroenterology - [place] [facility] [address] [facility] [address] [place] [address] Nanette Bustamante PA [address] [facility] [address] [place] [address] Health Maintenance Due Date Last Done Comments Zoster Vaccines (1 of 2) 1999 COVID-19 Vaccine ( season) 2024 09/29/2021, 04/28/2021, 09/26/2020, Additional history exists RSV Immunization Adult Patients (1 - 1-dose 75+ series) 2024 Influenza Vaccine (#1) 2025 , 02/22/2023, 03/16/2022, Additional history exists Medicare Annual Wellness Visit 04/03/2025 04/03/2024 Falls Risk Assessment 07/21/2025 07/21/2024, 024 Social Influencers of Health Screening 07/21/2025 07/21/2024 Osteoporosis Screening (Bone Density Screening) 08/08/2025 08/09/2023 Cholesterol Screening (Lipid Panel) 09/09/2028 09/10/2023 DTaP,Tdap,and Td Vaccines (4 - Td or Tdap) 11/18/2033 11/19/2023, 03/06/2013, 05/01/2005 Hepatitis C Screening Completed 03/06/2013 Pneumococcal Vaccine: 50+ Years Completed 07/22/2020, 09/09/2015, 03/19/2014 Breast Cancer Screening Discontinued 08/22/19, 08/09/2023, 01/12/2022, Additional history exists Depression Screening Completed 01/26/2025, 04/03/20 Colorectal Cancer Screening: Colonoscopy Discontinued HIB Vaccines [...] Procedure Name Priority Date/Time Associated Diagnosis Comments US RETROPERITONEAL COMPLETE Routine 12/31/2024 1:05 PM EDT Left kidney mass CT CHEST WO CONTRAST Routine 12/16/2024 9:19 AM EDT Chronic cough XR CHEST 2 VIEWS Routine 11/05/2024 9:48 [...] Recently Relevant to Health Maintenance Results * US Retroperitoneal Complete (12/31/2024 1:05 PM EDT) Anatomical Region Laterality Modality Body Ultrasound 12/31/2024 4:40 PM EDT Impressions 12/31/2024 4:50 PM EDT 1. Mild left hydronephrosis. If further evaluation is necessary, consider CT abdomen and pelvis. 2. Left renal cyst. 3. The previously identified right echogenic lesion is not seen on today's examination. -------- FINAL REPORT -------- Dictated By: Elizabeth Castro Dictated Date: 12/31/2024 16:40 ET Assigned Physician: Elizabeth Castro Reviewed and Electronically Signed By: Elizabeth Castro Signed Date: 12/31/2024 16:50 ET Workstation ID: [id number] Transcribed By: Self Edit Transcribed Date: 12/31/2024 16:40 ET Narrative 12/31/2024 4:50 PM EDT EXAM: RENAL ULTRASOUND HISTORY: kidney mass COMPARISON: Ultrasound complete abdomen from 03/20/2019 TECHNIQUE: Farmer scale and color Doppler images were obtained of the kidneys and bladder. Patient unable to straighten legs or to breath-hold. FINDINGS: Right kidney: measures 9.7 cm in length and is sonographically unremarkable. The previously identified echogenic lesion within the right mid pole is not seen on today's exam Left kidney: measures 10.2 cm in length and is normal in echogenicity. Mild hydronephrosis. An anechoic thin-walled upper pole 1.6 x 1.6 x 1.5 cm cyst is present. Bladder: Bilateral ureteral jets noted. Patient is not well prepped for bladder evaluation. Procedure Note Elizabeth Castro MD - 12/31/2024 EXAM: RENAL ULTRASOUND HISTORY: kidney mass COMPARISON: Ultrasound complete abdomen from 03/20/2019 TECHNIQUE: Farmer scale and color Doppler images were obtained of thekidneys and bladder. Patient unable to straighten legs or tobreath-hold. FINDINGS: Right kidney: measures 9.7 cm in length and is sonographicallyunremarkable. The previously identified echogenic lesion within the rightmid pole is not seen on today's exam Left kidney: measures 10.2 cm in length and is normal in echogenicity.Mild hydronephrosis. An anechoic thin-walled upper pole 1.6 x 1.6 x 1.5 cmcyst is present. Bladder: Bilateral ureteral jets noted. Patient is not well prepped forbladder evaluation. IMPRESSION: 1. Mild left hydronephrosis. If further evaluation is necessary, considerCT abdomen and pelvis. 2. Left renal cyst. 3. The previously identified right echogenic lesion is not seen on today'sexamination. -------- FINAL REPORT -------- Dictated By: Elizabeth Castro Dictated Date: 12/31/2024 16:40 ET Assigned Physician: Elizabeth Castro Reviewed and Electronically Signed By: Elizabeth Castro Signed Date: 12/31/2024 16:50 ET Workstation ID: [id number] Transcribed By: Self Edit Transcribed Date: 12/31/2024 16:40 ET us Vidya Denis MD IMG US PROCEDURES Final Result * CT Chest wo Contrast (12/16/2024 9:19 AM EDT) Anatomical Region Laterality Modality Body Computed Tomogra phy 12/16/2024 9:52 AM EDT Narrative 12/16/2024 10:[address] without intravenous contrast. History persistent cough. No prior chest CTs are available for comparison. Plain films from 11/05/2024 was reviewed. Examination was performed on multidetector scanner without administration of intravenous contrast. There is are some volume loss in the left hemithorax most likely due to asymmetric pulmonary fibrosis mostly located in the subpleural zones. There are coarse reticulations and honeycombing located in the subpleural regions bilaterally more prominent on the left. There are areas of from mild traction bronchiectasis in the lower lungs bilaterally. There is no pleural or pericardial effusion. There is no gross mediastinal or hilar lymphadenopathy. Evaluation is limited due to lack of intravenous contrast. Are partially included arm left kidney revealed possible mass located medially in the upper/mid pole. Additional evaluation with abdominal ultrasound is recommended. Bony structures revealed no suspicious bone lesions. CONCLUSIONS: Findings suggestive of pulmonary fibrosis more prominent on the left as detailed. Possible mass in the upper/mid pole of the left kidney. Additional evaluation with renal ultrasound is recommended. -------- FINAL REPORT -------- Dictated By: Edie Moran Dictated Date: 12/16/2024 09:52 ET Assigned Physician: Edie Moran Reviewed and Electronically Signed By: Edie Moran Signed Date: 12/16/2024 10:04 ET Workstation ID: [id number] Transcribed By: Self Edit Transcribed Date: 12/16/2024 09:52 ET Procedure Note Edie Moran MD - 12/16/[address] without intravenous contrast. History persistent cough. No prior chest CTs are available for comparison. Plain films from 11/05/2024 was reviewed. Examination was performed on multidetector scanner without administrationof intravenous contrast. There is are some volume loss in the left hemithorax most likely due toasymmetric pulmonary fibrosis mostly located in the subpleural zones.There are coarse reticulations and honeycombing located in the subpleuralregions bilaterally more prominent on the left. There are areas of frommild traction bronchiectasis in the lower lungs bilaterally. There is nopleural or pericardial effusion. There is no gross mediastinal or hilarlymphadenopathy. Evaluation is limited due to lack of intravenouscontrast. Are partially included arm left kidney revealed possible mass locatedmedially in the upper/mid pole. Additional evaluation with abdominalultrasound is recommended. Bony structures revealed no suspicious bonelesions. CONCLUSIONS: Findings suggestive of pulmonary fibrosis more prominent onthe left as detailed. Possible mass in the upper/mid pole of the leftkidney. Additional evaluation with renal ultrasound is recommended. -------- FINAL REPORT -------- Dictated By: Edie Moran Dictated Date: 12/16/2024 09:52 ET Assigned Physician: Edie Moran Reviewed and Electronically Signed By: Edie Moran Signed Date: 12/16/2024 10:04 ET Workstation ID: [id number] Transcribed By: Self Edit Transcribed Date: 12/16/2024 09:52 ET us Vidya Denis MD IMG CT PROCEDURES Final Result * XR Chest 2 Views (11/05/2024 9:48 [...] Signed Date: 11/05/2024 10:02 ET Workstation ID: [id number] Transcribed By: Self Edit Transcribed Date: 11/05/2024 [...] Signed Date: 11/05/2024 10:02 ET Workstation ID: [id number] Transcribed By: Self Edit Transcribed Date: 11/05/2024 [...] is recommended in 1 year. Mammo Location: [facility], [address] [place] [address], [id number], . -------- FINAL REPORT -------- Dictated By: Elizabeth Castro Dictated Date: 08/21/2024 17:47 ET Assigned Physician: Elizabeth Castro Reviewed and Electronically Signed By: Elizabeth Castro Signed Date: 08/21/2024 17:50 ET Workstation ID: [id number] Transcribed By: Self Edit Transcribed Date: 08/21/2024 [...] is recommended in 1 year. Mammo Location: [facility], [address] [place] [address], [id number], . -------- FINAL REPORT -------- Dictated By: Elizabeth Castro Dictated Date: 08/21/2024 17:47 ET Assigned Physician: Elizabeth Castro Reviewed and Electronically Signed By: Elizabeth Castro Signed Date: 08/21/2024 17:50 ET Workstation ID: [id number] Transcribed By: Self Edit Transcribed Date: 08/21/2024 17:47 ET Vidya Denis MD IMG BI PROCEDURES Final Result * Depression Screening (04/03/2024) Depression Screening abstracted Historical Provider HEALTH MAINTENANCE Final Result * Falls Risk Assessment (10/19/2023) Pathologist [facility] [place] Risk Assessment abstracted Historical Provider HEALTH MAINTENANCE Final Result * Lipid panel (09/10/2023) LDL/HDL Ratio 3 0 - 4 Triglycerides 97 0 - 150 mg/dL Cholesterol 165 0 - 200 mg/dL HDL 57 >=40 mg/dL LDL Cholesterol 89 0 - 100 mg/dL Blood Venous blood specimen / Unknown Result [facility] Historical Provider LAB BLOOD ORDERABLES Leeanna l [...] (World Health Organization Fracture Risk Assessment) [facility] Department of Internal Medicine recommends using National [...] alternative screening schedule based on swapnil Sequeira., [facility] June 29, 2011 for patients with osteopenia [...] years. (World HealthOrganization Fracture Risk Assessment) [facility] Department of Internal Medicine recommendsusing National Osteoporosis [...] FRAX. Optional alternative screening schedule based on violetta Sequeira al., NEJMJanuary 2011 for patients with osteopenia (based on hip BMD T-score) is as follows: * advanced osteopenia (T scores -2.00 to -2.49), BMD testing every year * moderate osteopenia (T scores -1.50 to -1.99), BMD testing every 5years mild osteopenia or normal BMD (T scores -1.50 and higher), BMD testingevery 15 years [facility] [place] IMG DXA PROCEDURES Final Result * Hepatitis C Screening (03/06/2013) [facility] Hepatitis C Screening abstracted Historical Provider HEALTH MAINTENANCE Final Result from Last 3 Months or Most Recently Relevant to Health Maintenance Insurance MEDICARE [place]ID [place] [facility] Care Teams Bleach Boiler Packer Relationship Specialty Start Date End Date Vidya Denis MD [address] [place] [id number] PCP - General Internal Medicine 01/09/22
[2025-01-26 22:53] VITALS: BP 148/55; PULSE 70; RESP 16; O2SAT 97
--- NOTE | 2025-01-26 23:47 | ED.GENADULT ---
HPI - General Adult General Chief complaint: General Medical Stated complaint: ? 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 Christine Lucas HPI narrative: 74-year-old female with history of CHF, wheelchair bound from a retirement presenting via EMS with reported rectal prolapse that occurred today on routine pericare. According to the group tester, it went back in without intervention. Patient denies pain in the area. Denies straining with bowel movements. Had been feeling well prior to this. No fever, nausea or vomiting, abdominal pain, dysuria or hematuria. Related Data Home Medications ?Medication ?Instructions ?Recorded ?Confirmed buspirone 15 mg tablet 15 mg PO BID 03/29/23 03/29/23 calcium carbonate 600 mg PO DAILY 03/29/23 03/29/23 folic acid 1 mg tablet 1 mg PO DAILY 03/29/23 03/29/23 hydroxychloroquine 200 mg tablet 200 mg PO DAILY 03/29/23 03/29/23 leflunomide 20 mg tablet 20 mg PO DAILY 03/29/23 03/29/23 loratadine 10 mg tablet 10 mg PO DAILY 03/29/23 03/29/23 methotrexate sodium 25 mg/mL 20 mg subcut WE 03/29/23 03/29/23 injection solution omeprazole 20 mg capsule,delayed 20 mg PO DAILY 03/29/23 03/29/23 release tramadol 50 mg tablet 100 mg PO BID PRN pain 03/29/23 03/29/23 Previous Rx's ?Medication ?Instructions ?Recorded albuterol sulfate 90 mcg/actuation 2 puff inhalation RQ4H PRN 04/01/23 aerosol inhaler (Ventolin HFA) Shortness Of Breath/Wheezing #1 g aspirin 81 mg tablet,delayed 81 mg PO DAILY #1 tab 04/01/23 release atorvastatin 40 mg tablet 40 mg PO BEDTIME #30 tabs 04/01/23 benzonatate 100 mg capsule 100 mg PO TID PRN Cough #1 cap 04/01/23 cefuroxime axetil 500 mg tablet 500 mg PO BID #8 tabs 04/01/23 dexamethasone sodium phosphate 4 6 mg (1.5 mL) IVPUSH DAILY #1 mL 04/01/23 mg/mL injection solution furosemide 20 mg tablet 20 mg PO BID@0900,1800 #1 tab 04/01/23 metoprolol tartrate 25 mg tablet 12.5 mg (1/2 x 25 mg) PO BID #1 tab 04/01/23 potassium chloride 20 mEq 20 meq PO BID #1 tab 04/01/23 tablet,extended release(part/cryst) cefuroxime axetil 250 mg tablet 250 mg PO BID #20 tabs 09/26/23 loperamide 2 mg capsule (Imodium 2 mg PO Q4H PRN loose stool #20 09/26/23 A-D) caps cephalexin 500 mg capsule 500 mg PO QID 10 days #40 caps 12/06/24 doxycycline hyclate 100 mg tablet 100 mg PO BID #20 tabs 12/06/24 Allergies Allergy/AdvReac Type Severity Reaction Status Date / Time No Known Allergies (No Known Allergy Verified 01/26/25 21:41 Allergies*) Review of Systems Review of Systems: As per HPI, full review of systems performed and negative but for the above mentioned pertinent positives and negatives. [facility] Social History Social History Household Members: Family Housing: House Do you presently have visiting nurse or other home services: Yes Patient Tobacco Use Status: Never used Tobacco Advance Directives: Yes Advance Directives on File: Yes Advance Directives Date on File: 04/02/23 Do you have a plan to hurt others: No Plan service: No Physical Exam ED Exam Exam: GENERAL: Chronically ill-appearing, conversant, no acute distress. SKIN: Normal skin color for ethnicity, warm, dry, no rashes noted. HEENT: Normocephalic, atraumatic, no stridor, posterior oropharynx nonerythematous, EOMI. NECK: Soft, supple, full ROM, midline structures nontender, no step-offs, no deformities, no lymphadenopathy. CHEST: Heart regular rate and rhythm, no murmurs, symmetric chest rise and fall. PULMONARY: Clear to auscultation bilaterally, no labored breathing, no wheezes/rhales/ rhonchi. ABDOMINAL: Soft, nondistended, nontender, positive bowel sounds in all quadrants. : Deferred. MUSCULOSKELETAL: Bilateral lower extremity hypotonicity, full range of motion, no deformities, no peripheral edema. NEURO: Alert and oriented to person, CN II through XII intact, no focal neurologic deficits. PSYCHIATRIC: Flat affect, fluid speech, appropriate demeanor. Vital Signs: Vital Signs - 24 hr 01/26/25 22:53 Pulse Rate 70 Respiratory Rate 16 Blood Pressure 148/55 H Pulse Oximetry 97 Oxygen Delivery Method Room Air BMI result Body Mass Index 19.4 Medical Decision Making Medical Decision Making MDM Narrative: 74-year-old female with history of wheelchair-bound status, lives at a retirement, found to have a rectal prolapse as witnessed by retirement staff today. The prolapse has reduced prior to arrival in the emergency room. Patient denies having strained with bowel movements. Differential diagnosis includes rectal prolapse, intussusception, constipation, pelvic floor weakness, among others. There is no emergent intervention required today. I discussed this with the group tester and encouraged gentle reduction with pressure as well as sprinkling sugar on the area to help with reduction if it is not easily reduced in the future. She has an appointment with her primary care doctor tomorrow. Discharge back to the retirement in stable condition. Differential Diagnosis Differential Diagnoses: The differential diagnosis associated with the presentation includes (As above) Admission/Observation Consideration of admission/observation: Escalation of care including admission/observation considered External Record Review External record reviewed: Inpatient record and Outpatient record Chronic Conditions Patient?s care impacted by: Other (CHF) Social Determinants Patient?s care significantly limited by Social Determinants of Health including: Other Social Determinant of Health (Lives in a retirement) Discharge Plan Discharge Clinical Impression: Rectal prolapse Patient Disposition: Xfer SNF Instructions: Rectal Prolapse (ED) Additional Instructions: If you have any further episodes of rectal prolapse, you may push gently on the area to see if it will go back in, alternatively, you may sprinkled sugar on the rectum to see if it can be reduced that way. If the rectum stays out for long periods of time, or if the area is very painful, you should come to the hospital for evaluation. Prescriptions: No Action methotrexate sodium 25 mg/mL solution 20 mg subcut WE leflunomide 20 mg tablet 20 mg PO DAILY tramadol 50 mg tablet 100 mg PO BID PRN (Reason: pain) calcium carbonate 600 mg calcium (1,500 mg) tablet 600 mg PO DAILY omeprazole 20 mg capsule,delayed release(DR/EC) 20 mg PO DAILY folic acid 1 mg tablet 1 mg PO DAILY hydroxychloroquine 200 mg tablet 200 mg PO DAILY loratadine 10 mg tablet 10 mg PO DAILY buspirone 15 mg tablet 15 mg PO BID atorvastatin 40 mg Tablet 40 mg PO BEDTIME Qty: 30 0RF aspirin 81 mg Tablet,Delayed Release (Dr/Ec) 81 mg PO DAILY Qty: 1 0RF potassium chloride 20 mEq Tablet,Er Particles/Crystals 20 meq PO BID Qty: 1 0RF benzonatate 100 mg Capsule 100 mg PO TID PRN (Reason: Cough) Qty: 1 0RF furosemide 20 mg Tablet 20 mg PO BID@0900,1800 Qty: 1 0RF Protocol: Hold for SBP< HOLD for SBP < : 90 dexamethasone sodium phosphate 4 mg/mL Solution 6 mg IVPUSH DAILY Qty: 1 0RF albuterol sulfate [Ventolin HFA] 90 mcg/actuation Hfa Aerosol Inhaler 2 puff inhalation RQ4H PRN (Reason: Shortness Of Breath/Wheezing) Qty: 1 0RF cefuroxime axetil 500 mg tablet 500 mg PO BID Qty: 8 0RF metoprolol tartrate 25 mg tablet 12.5 mg PO BID Qty: 1 0RF cefuroxime axetil 250 mg tablet 250 mg PO BID Qty: 20 0RF loperamide [Imodium A-D] 2 mg capsule 2 mg PO Q4H PRN (Reason: loose stool) Qty: 20 0RF Rx Instructions: administer after each loose stool until symptoms controlled; do not exceed 8 mg per 24 hrs cephalexin 500 mg capsule 500 mg PO QID 10 Days Qty: 40 0RF doxycycline hyclate 100 mg tablet 100 mg PO BID Qty: 20 0RF Print Language: Telugu
[2025-01-27 01:28] VITALS: BP 140/54; PULSE 74; RESP 16; TEMP 36.6; O2SAT 97
[2025-01-27 02:02] VITALS: BP 140/54; PULSE 74; RESP 16; TEMP 36.6; O2SAT 97
== END 2025-01-27 02:02 | disposition skilled nursing facility (03) ==
PROVIDERS: Emergency Provider Emergency Medicine; PCP Internal Medicine
DX: K62.3 Rectal prolapse (principal); Z99.3 Dependence on wheelchair; I50.9 Heart failure, unspecified
CPT/HCPCS: 99283

== ENCOUNTER 2025-05-14 21:57 | Emergency (ER) | payer MEDICARE, MEDICAID, SELFPAY ==
[2025-05-14 22:06] VITALS: BP 127/50; BP 128/62; PULSE 70; PULSE 71; RESP 16; TEMP 35.8; O2SAT 91; O2SAT 97; BMI 20.6
--- OUTSIDE RECORDS SUMMARY | 2025-05-14 22:31 | XMS_ITS ---
Author Name Lauren GIORGI, MS. Odalis Boothe Address [address] [place] [address] Phone [phone] [facility] Care Team Providers Care Lens Generator Name Role Phone Odalis Aguilar Unavailable [phone] [facility] Unavailable Reason for Referral Not Available Allergies, adverse [...] to ER today Immunocompromised Active 2023-03-29 N/A [facility] Pre viously Coded, ICD10: T30928: Immunodeficiency due to drugsAlso with history of RA Anxiety with moderate episode of recurrent major depressive disorder Active 2022-06-07 N/A Feels her mo od is stable on buspironeDenies any depression Not followed by psych and does not think she needs to be Initial ALVARADO-7=0 and PHQ=0 12/28/22pt is controlled with Buspardenies depression and anxiety 03/29/23: Pbx Wire Chief states she is very depressed, patient denies anxiety or depression previously. Next visit will obtain a PHQ Encounters Encounters Type Facility Date of Service Diagnosis/Co mplaint New patient,40-59min; chronic exacerbation, 2 stable chronic or 1 acute illness add add modifier 95 for video (do not use for phone, instead use [id number]) [facility] [place] 06[place]07/2022 Rheumatoid arthritis, unspecifiedAnxiety disorder, unspecifiedGastro-esophageal reflux disease without esophagitis New patient,40-59min; chronic exacerbation, 2 stable chronic or 1 acute illness add add modifier 95 for video (do not use for phone, instead use [id number]) [facility], [place] 06/07/2022 New patient,40-59min; chronic exacerbation, 2 stable chronic or 1 acute illness add add modifier 95 for video (do not use for phone, instead use 16004-24) [facility], [place] 06/07/2022 New patient,40-59min; chronic exacerbation, 2 stable chronic or 1 acute illness add add modifier 95 for video (do not use for phone, instead use 94782-64) [facility], ([place]) 06/07/2022 New patient,40-59min; chronic exacerbation, 2 stable chronic or 1 acute illness add add modifier 95 for video (do not use for phone, instead use 78104-32) [facility], [place] 06/07/2022 New patient,40-59min; chronic exacerbation, 2 stable chronic or 1 acute illness add add modifier 95 for video (do not use for phone, instead use 91857-52) [facility], [place] 06/07/2022 New patient,40-59min; chronic exacerbation, 2 stable chronic or 1 acute illness add add modifier 95 for video (do not use for phone, instead use 98607-04) [facility] [place] 06/07/2022 Estab. patient 30-39min; chronic exacerbation, 2 stable chronic or 1 acute illness add add modifier 95 for video, (do not use for phone, instead use 27080-76) [facility] [place] 12/28/2022 Rheumatoid arthritis, unspecifiedAnxiety disorder, unspecifiedGastro-esophageal reflux disease without esophagitis Estab. patient 30-39min; chronic exacerbation, 2 stable chronic or 1 acute illness add add modifier 95 for video, (do not use for phone, instead use 30332-97) [facility] [place] 12/28/2022 Estab. patient 30-39min; chronic exacerbation, 2 stable chronic or 1 acute illness add add modifier 95 for video, (do not use for phone, instead use [id number]) [facility] [place] 12/28/2022 Estab. patient 30-39min; chronic exacerbation, 2 stable chronic or 1 acute illness add add modifier 95 for video, (do not use for phone, instead use 31162-83) [facility] [place] 12/28/2022 Estab. patient 30-39min; chronic exacerbation, 2 stable chronic or 1 acute illness add add modifier 95 for video, (do not use for phone, instead use 07121-32) [facility], [place] 12/28/2022 Estab. patient 30-39min; chronic exacerbation, 2 stable chronic or 1 acute illness add add modifier 95 for video, (do not use for phone, instead use 21701-90) [facility], ([place]) 12/28/2022 Estab. patient 30-39min; chronic exacerbation, 2 stable chronic or 1 acute illness add add modifier 95 for video, (do not use for phone, instead use 07982-37) [facility] ([place] 12/28/2022 Estab. patient 30-39min; chronic exacerbation, 2 stable chronic or 1 acute illness add add modifier 95 for video, (do not use for phone, instead use 86008-11) [facility] [place] 12/28/2022 Estab. patient 10-29min; 1 minor problem; add add modifier 95 for video, modifier [address] [facility] ([place] 03/28/2023 History of falling Unlisted special service; to be used for medical record reviews and reporting CPTII codes (1111F, etc) [facility] ([place] 03/29/2023 Rheumatoid arthritis, unspecifiedAnxiety disorder, unspecifiedMajor depressive disorder, recurrent, moderateGastro-esophageal reflux disease without esophagitisHistory of fallingImmunodeficiency, unspecified Unlisted special service; to be used for medical record reviews and reporting CPTII codes (1111F, etc) [facility] ([place] 03/29/2023 Unlisted special service; to be used for medical record reviews and reporting CPTII codes (1111F, etc) [facility] ([place] 03/29/2023 Unlisted special service; to be used for medical record reviews and reporting CPTII codes (1111F, etc) [facility] ([place] 03/29/2023 Vital Signs Date of Collection Vitals 2022-12-28 09:14:56 Pain Scale - 5.0 {sc ore} Social History Social History Social History Observation Description Effec tive Time Current Smoking Status Never smoker 5 Sex Female History of Procedures Procedures Service Procedure code Service date Servicing provider Phone# New patient,40-59min; chronic exacerbation, 2 stable chronic or 1 acute illness add add modifier 95 for video (do not use for phone, instead use [id number]) [id number] 2022-06-07 No Data Available No Data Availa [...] (do not use for phone, instead use 86085-47) [id number] 2022-12-28 No Data Available No Data Availa [...] 95 for video, modifier 93 for phone [id number] 2023-03-28 No Data Available No Data Availa ble Unlisted special service; to be used for medical record reviews and reporting CPTII codes (1111F, etc) [id number] 2023-03-29 No Data Available No Data Availa [...] does not think she needs to be AVLARADO-7=0 and PHQ=0Stable on omperazole Asymptomatic and denies [...] controlled with Buspardenies depression and anxiety 03/29/23: Pbx Wire Chief states she is very depressed, patient denies [...] out to member.03/29/23: Patient went to ER [facility] Previously Coded, ICD10: D49102: Immunodeficiency due to drugsAlso with history of [...] 2023-03-29 HEDIS review: Done 2023-03-29 Spoke with Pbx Wire Chief at bedside: Desmond who states she is in ER, positive for Covid, she is being admitted 2023-03-29 Plan to follow up po st discharge
--- NOTE | 2025-05-14 22:32 | ED.GENADULT ---
HPI - General Adult General Chief complaint: General Medical Stated complaint: Rectal prolapse Time Seen by Provider: 05/14/25 22:24 History of Present Illness ED Provider: Nico Sagastume MD HPI narrative: 74-year-old female from [facility] staff reported that she had a visible rectal prolapse and sent her in this started about 730. There were attempts at reduction there that were reportedly unsuccessful. Patient reports feeling some protuberance but no significant pain no bleeding was reported Related Data Home Medications ?Medication ?Instructions ?Recorded ?Confirmed buspirone 15 mg tablet 15 mg PO BID 03/29/23 03/29/23 calcium carbonate 600 mg PO DAILY 03/29/23 03/29/23 folic acid 1 mg tablet 1 mg PO DAILY 03/29/23 03/29/23 hydroxychloroquine 200 mg tablet 200 mg PO DAILY 03/29/23 03/29/23 leflunomide 20 mg tablet 20 mg PO DAILY 03/29/23 03/29/23 loratadine 10 mg tablet 10 mg PO DAILY 03/29/23 03/29/23 methotrexate sodium 25 mg/mL 20 mg subcut WE 03/29/23 03/29/23 injection solution omeprazole 20 mg capsule,delayed 20 mg PO DAILY 03/29/23 03/29/23 release tramadol 50 mg tablet 100 mg PO BID PRN pain 03/29/23 03/29/23 Previous Rx's ?Medication ?Instructions ?Recorded albuterol sulfate 90 mcg/actuation 2 puff inhalation RQ4H PRN 04/01/23 aerosol inhaler (Ventolin HFA) Shortness Of Breath/Wheezing #1 g aspirin 81 mg tablet,delayed 81 mg PO DAILY #1 tab 04/01/23 release atorvastatin 40 mg tablet 40 mg PO BEDTIME #30 tabs 04/01/23 benzonatate 100 mg capsule 100 mg PO TID PRN Cough #1 cap 04/01/23 cefuroxime axetil 500 mg tablet 500 mg PO BID #8 tabs 04/01/23 dexamethasone sodium phosphate 4 6 mg (1.5 mL) IVPUSH DAILY #1 mL 04/01/23 mg/mL injection solution furosemide 20 mg tablet 20 mg PO BID@0900,1800 #1 tab 04/01/23 metoprolol tartrate 25 mg tablet 12.5 mg (1/2 x 25 mg) PO BID #1 tab 04/01/23 potassium chloride 20 mEq 20 meq PO BID #1 tab 04/01/23 tablet,extended release(part/cryst) cefuroxime axetil 250 mg tablet 250 mg PO BID #20 tabs 09/26/23 loperamide 2 mg capsule (Imodium 2 mg PO Q4H PRN loose stool #20 09/26/23 A-D) caps cephalexin 500 mg capsule 500 mg PO QID 10 days #40 caps 12/06/24 doxycycline hyclate 100 mg tablet 100 mg PO BID #20 tabs 12/06/24 Allergies Allergy/AdvReac Type Severity Reaction Status Date / Time No Known Allergies (No Known Allergy Verified 05/14/25 22:08 Allergies*) [facility] Social History Social History Household Members: Family Housing: House Do you presently have visiting nurse or other home services: Yes Patient Tobacco Use Status: Never used Tobacco Advance Directives: Yes Advance Directives on File: Yes Advance Directives Date on File: 04/02/23 Do you have a plan to hurt others: No Plan service: No Physical Exam ED Exam Exam: GENERAL: Well appearing. No apparent distress. Alert. HEAD/NECK: No visual trauma. EYES: Normal to inspection. No conjunctival erythema. No discharge. ENMT: Hearing grossly normal. External nose normal. RESPIRATORY: Respiratory effort normal. CARDIOVASCULAR: Additional details (Grossly well perfused). SKIN: No jaundice. NEUROLOGICAL: Alert. Moving all extremities x4. Additional details (No gross motor deficits. Normal tone. ). PSYCHIATRIC: Alert. Appearance appropriate for situation. Chaperoned rectal exam does not show any evidence of rectal prolapse. There was some mild mucousy discharge from the anus and non thrombosed external hemorrhoids present Vital Signs: Vital Signs - 24 hr 05/14/25 22:06 Temperature 96.5 F L Pulse Rate 70 Respiratory Rate 16 Blood Pressure 127/50 L Pulse Oximetry 97 Oxygen Delivery Method Room Air BMI result Body Mass Index 20.6 Medical Decision Making Medical Decision Making MDM Narrative: Medical Decision Making: [age] female with possible self resolved transient rectal prolapse. No treatment indicated Preliminary Favored Differential Diagnosis: [ ] among additional considered etiologies Testing Interpreted Independently: ?See below for details Radiology or Lab testing Results Reviewed: ?See below for details Consults: ?See below for details Independent Historians/External Chart Reviews: ?See below for details Social Determinants of Health Impacting MDM/Planning: ?See below for details Discharge Plan Discharge Clinical Impression: Incomplete rectal prolapse Patient Disposition: Home, Self-Care Instructions: Rectal Prolapse (ED) Additional Instructions: The patient was evaluated with physical exam for rectal prolapse. There was no evidence of rectal prolapse in the emergency department this likely resolved on its own Prescriptions: No Action methotrexate sodium 25 mg/mL solution 20 mg subcut WE leflunomide 20 mg tablet 20 mg PO DAILY tramadol 50 mg tablet 100 mg PO BID PRN (Reason: pain) calcium carbonate 600 mg calcium (1,500 mg) tablet 600 mg PO DAILY omeprazole 20 mg capsule,delayed release(DR/EC) 20 mg PO DAILY folic acid 1 mg tablet 1 mg PO DAILY hydroxychloroquine 200 mg tablet 200 mg PO DAILY loratadine 10 mg tablet 10 mg PO DAILY buspirone 15 mg tablet 15 mg PO BID atorvastatin 40 mg Tablet 40 mg PO BEDTIME Qty: 30 0RF aspirin 81 mg Tablet,Delayed Release (Dr/Ec) 81 mg PO DAILY Qty: 1 0RF potassium chloride 20 mEq Tablet,Er Particles/Crystals 20 meq PO BID Qty: 1 0RF benzonatate 100 mg Capsule 100 mg PO TID PRN (Reason: Cough) Qty: 1 0RF furosemide 20 mg Tablet 20 mg PO BID@0900,1800 Qty: 1 0RF Protocol: Hold for SBP< HOLD for SBP < : 90 dexamethasone sodium phosphate 4 mg/mL Solution 6 mg IVPUSH DAILY Qty: 1 0RF albuterol sulfate [Ventolin HFA] 90 mcg/actuation Hfa Aerosol Inhaler 2 puff inhalation RQ4H PRN (Reason: Shortness Of Breath/Wheezing) Qty: 1 0RF cefuroxime axetil 500 mg tablet 500 mg PO BID Qty: 8 0RF metoprolol tartrate 25 mg tablet 12.5 mg PO BID Qty: 1 0RF cefuroxime axetil 250 mg tablet 250 mg PO BID Qty: 20 0RF loperamide [Imodium A-D] 2 mg capsule 2 mg PO Q4H PRN (Reason: loose stool) Qty: 20 0RF Rx Instructions: administer after each loose stool until symptoms controlled; do not exceed 8 mg per 24 hrs cephalexin 500 mg capsule 500 mg PO QID 10 Days Qty: 40 0RF doxycycline hyclate 100 mg tablet 100 mg PO BID Qty: 20 0RF Print Language: Omani
[2025-05-15 00:46] VITALS: BP 127/50; PULSE 70; RESP 16; TEMP 36.1; O2SAT 97
== END 2025-05-15 00:47 | disposition home or self-care (01) ==
PROVIDERS: Emergency Provider Emergency Medicine; PCP Internal Medicine
DX: K62.3 Rectal prolapse (principal)
CPT/HCPCS: 99284